=== PATIENT | female | born 1925 | race African-American/Black ===

== ENCOUNTER 2016-08-06 20:41 | Inpatient (IN) ==
[2016-08-06 23:03] LABS: Apearance,Urine CLOUDY (Clear); Bilirubin,Urine Negative (Negative); Blood, Urine Large mg/dL (Negative); Glucose,Urine (UA) >=500 mg/dL (Negative); Granular Casts,Urine 5 /LPF (0-1); Hyaline Casts,Urine 10 /LPF (0-3); Ketones,Urine Negative (Negative); Nitrite,Urine Negative (Negative); Protein,Urine 100 MG/DL; RBC,Urine 41 /HPF (0-4); Squamous Epithelial Cell,Urine Occasional /HPF (0-10); Urine Color Yellow (Yellow); Urine Specific Gravity 1.012 (1.001-1.035); Urine Urobilinogen < 2.0 EU/DL (0.2-1.0); WBC,Urine 27 /HPF (0-6)
[2016-08-06] MEDS ORDERED: SODIUM BICARBONATE 50 MEQ/50 ML SYRINGE IV ONE (23:04)
[2016-08-06] MEDS ORDERED: LACTULOSE 20 GM/30 ML UDCUP PO PRN (23:05)
[2016-08-06] MEDS ORDERED: ACETAMINOPHEN 325 MG TABLET PO PRN (23:05)
[2016-08-06] MEDS ORDERED: DOCUSATE SODIUM 100 MG CAPSULE PO PRN (23:05)
[2016-08-06] MEDS ORDERED: SODIUM CHLORIDE 0.9% 1,500 ML IV ONE (23:05)
[2016-08-06] MEDS ORDERED: ONDANSETRON 4 MG/2 ML VIAL IV PRN (23:05)
[2016-08-06 23:06] LABS: ABG Base Excess -6.8 MMOL/L (-2.5-2.5); ABG HCO3 22.8 MMOL/L (20-26); ABG Oxygen Saturation 97.3 % (95-100); ABG PCO2 65.8 MM HG (35-48); ABG PO2 117.5 MM HG (80-95); ABG TCO2 24.8 MMOL/L (23-27); Allen Test Positive; Pt O2 Delivery Device Ventilator
[2016-08-06 23:10] LABS: ABG PH 7.157 (7.35-7.45)
[2016-08-06] MEDS ORDERED: NOREPINEPHRINE 4 MG/4 ML VIAL IV ONE (23:16)
[2016-08-06] MEDS ORDERED: SODIUM CHLORIDE 0.9% 1,000 ML IV SCH (23:30)
[2016-08-07] MEDS: NOREPINEPHRINE 8 MG in SODIUM CHLORIDE 0.9% 242 ML IV SCH
[2016-08-07 00:09] LABS: Calcium 7.2 MG/DL (8.5-10.1); Magnesium 1.9 MG/DL (1.8-2.4); Osmolality,Calculated 310.1 MOS/KG (273-304); Potassium 3.4 MMOL/L (3.5-5.1); Risk Ratio 3.51; VLDL CHOLESTEROL 12.8 MG/DL
[2016-08-07] MEDS ORDERED: PROPOFOL 1,000 MG/100 ML BOTTLE IV ONE (00:10)
[2016-08-07] MEDS ORDERED: FUROSEMIDE 100 MG/10 ML VIAL ONE (00:10)
[2016-08-07 00:12] LABS: Troponin I Only 0.26 NG/ML (0.00-0.045)
[2016-08-07 00:15] LABS: INR 1.2; PT Patient Result 12.7 SECS; Partial Thromboplastin Time 35.3 SECS (0-40)
[2016-08-07] MEDS: PROPOFOL 1,000 MG/100 ML BOTTLE IV SCH ×2 (00:20→19:46)
[2016-08-07 00:25] LABS: Alanine Aminotransferase 49 U/L (13-56); Albumin 2.1 G/DL (3.4-5.0); Alkaline Phosphatase 86 U/L (45-117); Aspartate Amino Transferase 83 U/L (0-37); Bilirubin,Total < 0.39 MG/DL (0.2-1.0); Blood Urea Nitrogen 13 MG/DL (7-18); Calcium 7.2 MG/DL (8.5-10.1); Glucose 354 MG/DL (74-106); Osmolality,Calculated 309.1 MOS/KG (273-304); Potassium 3.4 MMOL/L (3.5-5.1); Sodium 149 MMOL/L (136-145); Total Protein 5.1 G/DL (6.4-8.3)
[2016-08-07 00:31] LABS: Lactic Acid 3.9 MMOL/L (0.4-2.0)
[2016-08-07 00:37] LABS: Basophils % 0.1 % (0.0-0.8); Eosinophils % 0.1 % (0.00-10.9); Hematocrit 34.2 VOL% (35.7-47.0); Immature Granulocytes % 0.9 %; Immature Granulocytes Absolute 0.15 #; Lymphocytes # 1.1 10*3/uL (1.4-4.0); Lymphocytes % 6.6 % (21.3-54.2); Mean Corpuscular HGB Conc 32.2 GM/DL (32-36); Mean Corpuscular Hemoglobin 29 PG (27-34); Mean Corpuscular Volume 90.2 FL (87-102); Mean Platelet Volume 11.2 FL (9.6-12.0); Monocytes # 1.2 10*3/uL (0.11-0.8); Monocytes % 7.8 % (1.7-12.7); Neutrophils # 13.4 10*3/uL (1.4-7.4); Neutrophils % 84.5 % (38.7-73.9); Platelet Count 165 T/CUMM (130-400); Red Blood Count 3.79 MC/CUMM (3.8-5.5); Red Cell Distribution Width 14.3 % (9.3-17.3); White Blood Count 15.8 T/CUMM (4-12)
[2016-08-07] MEDS ORDERED: POTASSIUM CHLORIDE RIDER 10 MEQ in PREMIX 1 EACH IV PRN (00:41)
[2016-08-07] MEDS ORDERED: SODIUM BICARBONATE 50 MEQ/50 ML SYRINGE IV ONE (00:41)
[2016-08-07] MEDS ORDERED: SODIUM CHLORIDE 0.9% 1,000 ML IV ONE (00:41)
[2016-08-07] MEDS ORDERED: POTASSIUM CHLORIDE RIDER 20 MEQ in PREMIX 1 EACH IV PRN (00:41)
[2016-08-07] MEDS ORDERED: FUROSEMIDE 40 MG/4 ML VIAL IV ONE (00:41)
[2016-08-07] MEDS ORDERED: GLUCAGON 1 MG VIAL IM PRN (00:53)
[2016-08-07] MEDS ORDERED: DEXTROSE 50% 25 GM/50 ML VIAL IV PRN (00:53)
[2016-08-07] MEDS ORDERED: AMIODARONE INJ 450 MG in DEXTROSE 5% 241 ML IV SCH ×3 (01:00→05:00)
[2016-08-07] MEDS ORDERED: POTASSIUM CHLORIDE RIDER 100 ML IV ONE ×2 (01:13)
[2016-08-07 01:29] LABS: Band Neutrophils 2 % (0-10); Lymphocytes 6 % (20-55); Segmented Neutrophils 89 % (50-85); Total Cells Counted 100
--- NOTE | 2016-08-07 01:29 | Hospitalist History & Physical ---
Assessment and Plan - Time spent with patient Time spent with patient: Greater than 30 minutes (1) Pulmonary edema Status: Acute Assessment and plan: lasix IV 80 mg with good response/ urine output Current Visit: Yes Qualifiers: Chronicity: acute Qualified Code(s): J81.0 - Acute pulmonary edema (2) NSTEMI (non-ST elevated myocardial infarction) Status: Acute Assessment and plan: serial cardiac enzymes add lovenox echo in am consult cardiology repeat ekg shows a LBBB reduce amiodarone start asa Current Visit: Yes (3) Acute respiratory failure Status: Acute Assessment and plan: intubated. repeat ABG Consult pulmonary Current Visit: Yes Qualifiers: Respiratory failure complication: hypoxia and hypercapnia Qualified Code(s) : J96.01 - Acute respiratory failure with hypoxia; J96.02 - Acute respiratory failure with hypercapnia (4) Respiratory acidosis Status: Acute Assessment and plan: PH 7.1 with an elevated PCO2. Increase respiratory rate and increase PEEP repeat ABG in a few hours One amp of bicarb given on arrival Current Visit: Yes (5) Hypokalemia Status: Acute Assessment and plan: replacement ordered per protocol. Current Visit: Yes (6) SVT (supraventricular tachycardia) Status: Acute Assessment and plan: improved with amiodarone Current Visit: Yes (7) Hyperglycemia Status: Acute Assessment and plan: no hx of diabetes. repeat accu check. sliding scale insulin coverage. A1c is 6.0. Current Visit: Yes (8) Elevated lactic acid level Status: Acute Assessment and plan: no evidence of sepsis or infection no fever sudden onset of symptoms I suspect a primary cardiac event. rocephin and zithromax given CXR looks like pulmonary edema and has frothy sputum in ET tube. Current Visit: Yes History of Present Illness Chief complaint: SOB/ respiratory failure, SVT History of present illness: Ms. Daugherty is a 89 year old female that [facility] with shortness of breath that was acute in onset prior to arrival to the emergency department. She was found to be in SVT with a heart rate of 170. She was treated with amiodarone IV which improved her heart rate but did not improve her shortness of breath. Due to significant respiratory distress and impending respiratory failure, the patient was intubated in the emergency department. Further evaluation showed a left bundle branch block on EKG. The patient's family reports no significant medical history other than emphysema. She has not been on any medications for over 2 years. She only takes an aspirin daily. They deny any history of previous heart disease. The patient was transferred to [facility] for intensive care unit level care due to her acute respiratory failure and unstable cardiac rhythm. She arrived intubated and sedated having received paralytics in route. She was on an amiodarone drip and dopamine. Her heart rate was in the 120s-130s and she was hypotensive. She was given a fluid bolus upon arrival with normal saline. She was also receiving azithromycin IV. Upon arrival to the ICU, I saw and evaluated the patient. I felt that she needed a central line and a triple-lumen catheter was placed in the right internal jugular vein. A chest x- ray was done to confirm positioning. Chest x-ray reviewed by me appears to show bilateral pulmonary edema. The patient's family reports no significant fever, cough, sick contacts, or prodrome to this hospitalization. The daughter reports the patient became short of breath approximately 20-30 minutes prior to arrival to the emergency department. She reports diaphoresis and left-sided chest pain. The patient's initial cardiac enzymes were mildly elevated. Repeat cardiac enzymes here were also mildly elevated. A repeat EKG is being performed now. Allergies Allergy/AdvReac Type Severity Reaction Status Date / Time No Known Allergies Allergy Verified 08/06/16 22:43 Medical,Surgical,& Family Hx - Medical History Neurology: History of: Dementia (Untreated for the last 2 years) Respiratory: History of: COPD Other: History of: Miscellaneous Medical Problems (The patient has not been seeing a physician or taking any medications.) - Surgical History Additional Surgical History: Family denies prior surgeries. Patient unable to provide history due to intubation. - Family History Family History: Reports;: Family Hypertension - Social History Smoking Status: Former smoker Have you smoked in the last 12 months: No Frequency of Alcohol Use: None Type of Drug Use: None Marital Status: Lives With:: Children ROS unobtainable: due to endotracheal tube Exam - Constitutional Vitals: Period Temp Pulse Resp BP Sys/Cruz Pulse Ox Last 24 Hr 10-19 Exam: Constitutional System: Mild distress. No tremulousness. Intubated and sedated. Thin and frail-appearing. Head: Normocephalic, atraumatic. Ears, Nose and Throat System: No pain or tenderness. No epistaxis or discharge. Endotracheal tube in place Eyes System: Pupils equal, round, and reactive. Extraocular muscles intact. Neck: Supple, without adenopathy, No jugular venous distention. No thyromegaly, neck mass, or prior surgery apparent. Respiratory System: Chest with rales and rhonchi bilaterally to auscultation. Cardiovascular System: Heart with tachycardia. No murmur. GI System: Abdomen soft, nontender. Normo active bowel sounds present. Musculoskeletal System: limbs with no pedal edema. Full distal pulses. Neurological System: Intubated and sedated. Arouses and moves spontaneously Psychiatric System: Unable to assess secondary to mental status and intubation. Results - Labs CBC & BMP: 08/06/16 23:53 08/06/16 23:59 Lab Results: I have reviewed the past 24 hour labs - Diagnostic Findings Procedure: Chest x-ray: image reviewed by me, report reviewed by me Sepsis Sepsis documentation within 6 hours of presentation: CVP measurement (CVP of 19) - Physical Exam Respiratory exam: rales Capillary Refill: Less Than 3 Seconds Peripheral pulses: Radial (L): 5+, Radial (R): 5+, Dorsalis Pedis (L) PM: 5+, Dorsalis Pedis (R) PM: 5+, Posterior Tibialis (L): 5+, Posterior Tibialis (R): 5 + Cardiovascular exam: tachycardia Skin exam: normal color
[2016-08-07 01:30] LABS: Ovalocytes 1+; Platelet Estimate Normal
[2016-08-07] MEDS: POTASSIUM CHLORIDE RIDER 20 MEQ in PREMIX 1 EACH IV SCH ×2 (01:30→02:57)
[2016-08-07] MEDS: INSULIN REGULAR 100 UNIT/ML SUBCUT SCH ×6 (02:03→21:13)
[2016-08-07] MEDS ORDERED: ASPIRIN CHEW 81 MG TABLET PO ONE (02:44)
[2016-08-07 03:11] LABS: ABG Base Excess -2.6 MMOL/L (-2.5-2.5); ABG HCO3 22.3 MMOL/L (20-26); ABG PCO2 40.8 MM HG (35-48); ABG PH 7.355 (7.35-7.45); ABG TCO2 20.1 MMOL/L (23-27); Allen Test Positive; Pt O2 Delivery Device Ventilator
[2016-08-07] MEDS: MORPHINE 2 MG/1 ML SYRINGE IV PRN (04:30)
[2016-08-07] MEDS: ENOXAPARIN 60 MG/0.6 ML SYRINGE SUBCUT SCH ×2 (04:30→15:46)
[2016-08-07 04:48] LABS: Basophils % 0.1 % (0.0-0.8); Hematocrit 38.8 VOL% (35.7-47.0); Hemoglobin 12.4 GM/DL (12.0-16.0); Immature Granulocytes % 0.7 %; Lymphocytes % 6.3 % (21.3-54.2); Mean Corpuscular Hemoglobin 29 PG (27-34); Mean Corpuscular Volume 90.2 FL (87-102); Mean Platelet Volume 10.8 FL (9.6-12.0); Monocytes # 0.8 10*3/uL (0.11-0.8); Neutrophils # 13.2 10*3/uL (1.4-7.4); Neutrophils % 87.9 % (38.7-73.9); Platelet Count 184 T/CUMM (130-400); Red Cell Distribution Width 14.4 % (9.3-17.3)
[2016-08-07 05:21] LABS: Band Neutrophils 1 % (0-10); Lymphocytes 3 % (20-55); Platelet Estimate Normal; Segmented Neutrophils 94 % (50-85); Total Cells Counted 100
[2016-08-07 05:22] LABS: Hypochromasia 1+; Ovalocytes Slight
[2016-08-07 05:35] LABS: CKMB % 6.6 %
[2016-08-07 05:36] LABS: Calcium 7.9 MG/DL (8.5-10.1); Osmolality,Calculated 297.8 MOS/KG (273-304); Potassium 5.2 MMOL/L (3.5-5.1)
[2016-08-07 05:37] LABS: Troponin I Only 0.36 NG/ML (0.00-0.045)
--- NOTE | 2016-08-07 06:02 | XRay Report ---
Exam: XR chest 1V portable Date: 08/06/2016 10:48 PM Indication: Endotracheal tube placement Comparison: None Technical: AP portable Findings: A right IJ catheter has present. Endotracheal tube is located at the level of michelle. Patchy interstitial infiltrates are present bilaterally. Low volume effusion present on the right. Mild prominence the cardiac silhouette. Arthritic change present over the shoulders bilaterally at the glenohumeral joint as well as AC joint. External cardiac leads are present. ASVD is present. No pneumothorax. Impression: 1. Endotracheal tube at the level of the michelle slight retraction of the tube may be beneficial 2. Right IJ catheter in the superior vena cava 3. Patchy bilateral pneumonic infiltrates with low volume effusion 4. 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 Cardiomegaly PROCEDURE INTERPRETED AT [facility] DEPARTMENT OF RADIOLOGY Final Report Signed by: Dr. Ayush Shannon
--- NOTE | 2016-08-07 06:37 | EKG Report ---
Stationary ECG Study [facility] Test Date: 08/07/2016 3:07:36 AM Pat Name: MORRIS NEELY Department: Room: 106 Gender: F Center Mgr: MAKENZIE : 1925 Requested by: Nidia Collins Order Number: [id number] Reading MD: MONA MURRAY Intervals [place] Rate: 73 P: 35 [place]: 141 QRS: 55 QRSD: 154 T: 191 QT: 498 QTc: 524 Interpretive Statements SINUS RHYTHM INTRAVENTRICULAR CONDUCTION DELAY Electronically Signed On 08-07-16 12:08:32 CDT by MONA MURRAY [id number]
--- NOTE | 2016-08-07 07:30 | Pulmonology Consult Note ---
Assessment and Plan (1) Pulmonary edema Status: Acute Assessment and plan: The patient certainly looks like she has some pulmonary edema although she may have some underlying fibrotic changes. Her oxygenation is doing better on the ventilator. Current Visit: Yes Qualifiers: Chronicity: acute Qualified Code(s): J81.0 - Acute pulmonary edema (2) NSTEMI (non-ST elevated myocardial infarction) Status: Acute Assessment and plan: She certainly presented like an acute [place] and has positive enzymes. She appears to be stable at present. Current Visit: Yes (3) Acute respiratory failure Status: Acute Assessment and plan: The patient presented with respiratory failure and is now stable on the ventilator. Her oxygenation has improved. We will continue ventilatory support Current Visit: Yes Qualifiers: Respiratory failure complication: hypoxia and hypercapnia Qualified Code(s) : J96.01 - Acute respiratory failure with hypoxia; J96.02 - Acute respiratory failure with hypercapnia (4) Hyperglycemia Status: Acute Assessment and plan: Her glucose is around 300 now. Current Visit: Yes History of Present Illness Chief complaint: Ventilator management History of present illness: Ms. Daugherty is a 89 year old black female that apparently has been fairly active and healthy presented to the local emergency room with respiratory distress. She had SVT with a heart rate of 170 and was in distress. She ultimately required intubation. She is now in ICU on the ventilator. According to her family she might have some emphysema. She takes an aspirin and that is yet. Apparently the shortness of breath was fairly sudden. She had not been having a lot of symptoms for this. She is reasonably stable at present on the ventilator. Home Medications Medication Instructions Recorded Confirmed Type Aspirin [Ecotrin] 81 mg PO DAILY 08/07/16 08/07/16 History Allergies Allergy/AdvReac Type Severity Reaction Status Date / Time No Known Allergies Allergy Verified 08/06/16 22:43 ROS unobtainable: due to endotracheal tube (She is unable to give me any history.) Exam (Pulmonay) H&P - Constitutional Vitals: Period Temp Pulse Resp BP Sys/Cruz Pulse Ox Last 24 Hr 96.3 F-96.8 F 70-130 10-19 73-129/54-76 95-100 General appearance: no acute distress (Patient is stable on the ventilator.), under weight - Head Head exam: Present: normal inspection, normocephalic - Eye Eye exam: Present: EOMI. Absent: scleral icterus Pupils: Present: TACHO - ENT ENT exam: Present: other (ET tube is in good position) - Neck Neck exam: Absent: lymphadenopathy - Respiratory Respiratory exam: Present: rhonchi, other (She has fairly good breath sounds bilaterally now.). Absent: accessory muscle use - Cardiovascular Cardiovascular exam: Present: regular rate and rhythm. Absent: gallop, systolic murmur - GI/Abdominal GI/Abdominal exam: Present: normal bowel sounds, soft. Absent: organomegaly, tenderness - Extremities Exam Extremities exam: Present: other (Her extremities are rather thin.). Absent: calf tenderness, edema - Neurological Exam Neurological exam: Present: other (She is sedated on the ventilator at present.) - Psychiatric Psychiatric exam: Absent: anxious - Skin Skin exam: Present: warm, dry Medical,Surgical,& Family Hx - Medical History Neurology: History of: Dementia (Untreated for the last 2 years) Respiratory: History of: COPD Other: History of: Miscellaneous Medical Problems (The patient has not been seeing a physician or taking any medications.) - Family History Family History: Reports;: Family Hypertension - Social History Smoking Status: Former smoker Frequency of Alcohol Use: None Type of Drug Use: None Results - Labs CBC & BMP: 08/07/16 04:30 08/07/16 04:30 Labs: PO2 is 410 with a PCO2 of 40 and a pH of 7.35. She had a PCO2 of 65 when she was first intubated. - Diagnostic Findings Procedure: Chest x-ray: image reviewed by me, report reviewed by me (Chest x- ray shows bilateral interstitial changes. Some of this could be chronic.)
--- NOTE | 2016-08-07 07:45 | EKG Report ---
Stationary ECG Study [facility] Test Date: 08/06/2016 10:29:41 PM Pat Name: MORRIS NEELY Department: Room: 106 Gender: F Manager Stylist: MAKENZIE : 1925 Requested by: Nidia Collins Order Number: [id number] Reading MD: MONA MURRAY Intervals [place] Rate: 138 P: 999 [place]: 0 QRS: 21 QRSD: 171 T: 120 QT: 351 QTc: 432 Interpretive Statements ATRIAL FLUTTER/TACHYCARDIA WITH RAPID VENTRICULAR RESPONSE LEFT BUNDLE BRANCH BLOCK Electronically Signed On 08-07-16 11:59:41 CDT by MONA MURRAY [id number]
--- NOTE | 2016-08-07 08:13 | Cardiology Consult Note ---
<Helen Roman E - Last Filed: 08/07/16 07:47> Assessment and Plan - Time spent with patient Time spent with patient: Greater than 30 minutes (1) CAP (community acquired pneumonia) Status: Acute Assessment and plan: SEE PLAN OF CARE LISTED BELOW Current Visit: Yes (2) Elevated troponin Status: Acute Assessment and plan: SEE PLAN OF CARE LISTED BELOW Current Visit: Yes (3) LBBB (left bundle branch block) Status: Acute Assessment and plan: SEE PLAN OF CARE LISTED BELOW Current Visit: Yes (4) Advanced age Status: Chronic Assessment and plan: SEE PLAN OF CARE LISTED BELOW Current Visit: Yes (5) Tachyarrhythmia Status: Acute Assessment and plan: SEE PLAN OF CARE LISTED BELOW Current Visit: Yes (6) Pulmonary edema Status: Acute Assessment and plan: SEE PLAN OF CARE LISTED BELOW Current Visit: Yes Qualifiers: Chronicity: acute Qualified Code(s): J81.0 - Acute pulmonary edema (7) Acute respiratory failure Status: Acute Assessment and plan: SEE PLAN OF CARE LISTED BELOW Current Visit: Yes Qualifiers: Respiratory failure complication: hypoxia and hypercapnia Qualified Code(s) : J96.01 - Acute respiratory failure with hypoxia; J96.02 - Acute respiratory failure with hypercapnia (8) Respiratory acidosis Status: Acute Assessment and plan: SEE PLAN OF CARE LISTED BELOW Current Visit: Yes (9) Elevated lactic acid level Status: Acute Assessment and plan: SEE PLAN OF CARE LISTED BELOW Current Visit: Yes History of Present Illness - Data of Consult Patient: new to practice Consult date: 08/07/16 Requesting Physician: Nidia Collins - Consult Narrative Reason for consult: arrythmia, CHF, elevated troponin History of present illness: 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 ANDRADE Patient is being seen in ICU. She is intubated, sedated and no family is present. The majority of the information below is taken from medical records and staff. Ms. Daugherty, 89BF, with risk factors significant for: advanced age, sedentary lifestyle. No prior history of cardiac disease per family. (Patient is normally active and takes only ASA daily.) Patient was transferred in from [facility] this morning with acute shortness of breath, respiratory distress and impending respiratory failure. Patient was intubated in the emergency department. She was found to be in SVT with a heart rate around 170 bpm by report, treated with IV Amiodarone and heart rate improved. EKG revealed left bundle branch block. Family member reports patient had complaints of acute shortness of breath approximately 20-30 minutes prior to arrival in the emergency department, diaphoresis and left-sided chest pain. Troponins are minimally elevated at 0.16, 0.26, 0.360. Chest x-ray reveals parapneumonic effusions concerning for CAP, acute pulmonary edema, elevated troponin. ProBNP >7000. Currently on IV Amiodarone revealing a normal sinus rhythm, LBBB. Requiring low -dose pressor. She has received Aspirin, Lovenox. Blood pressure will not allow for beta-faustino, STANLEY or nitrate. Will add lipid-lowering agent. She has received IV Lasix and seems to be responding well. Cardiac exam reveals a murmur, suspicious for mitral regurgitation. Echocardiogram has been ordered. We will initiate IV Levaquin, send BC x 2, UA, continue diuretics and follow her cardiac biomarkers, EKG. At some point, patient may benefit from heart catheterization as I understand she is usually very active. Wants her comorbidities stabilize, this may be considered. I will further discuss with Dr. Andrade and await additional recommendations. ASSESSMENT/PLAN: 1. ACUTE RESPIRATORY FAILURE -now intubated, following commands appropriately. Most likely related to CAP, pulmonary edema. Continue with ventilatory support, diuresis, IV antibiotics and pulmonary toilet. 2. CAP - initiating IV Levaquin. WBCs 15K. Parapneumonic effusions per chest x-ray. Will continue to follow closely 3. ACUTE CHF - etiology undetermined and further information will unveil to the hospital stay. Echo has been ordered. NYHA Class IV. 4. CARDIAC MURMUR - suspicious for mitral regurgitation. Echocardiogram pending 5. ELEVATED TROPONIN - continue to follow CIEs. Troponin only minimally elevated and may be related to her reported tachycardia arrhythmias, metabolic stress. Aspirin, Lovenox on board. LBBB present, chronicity unknown. 6. LBBB - undetermined chronicity. 7. TACHY ARRYTHMIA -is reported her heart rate was around 170 bpm. I do see an EKG with sinus tachycardia 130s. She has been maintained on IV Amiodarone protocol and will continue to monitor for arrhythmias. Transition to oral Amiodarone soon. CC: Kelly Avila MD - Home Medications and Allergies Home Medications: Home Medications Medication Instructions Recorded Confirmed Type Aspirin [Ecotrin] 81 mg PO DAILY 08/07/16 08/07/16 History Allergies/Adverse Reactions: Allergies Allergy/AdvReac Type Severity Reaction Status Date / Time No Known Allergies Allergy Verified 08/06/16 22:43 ROS unobtainable: due to endotracheal tube Medical,Surgical,& Family Hx - Medical History Cardio: No history of: CAD, Hypertension, VA, Valvular Heart Disease, Cardiovascular Problems Neurology: History of: Dementia (Untreated for the last 2 years) Respiratory: History of: COPD Other: History of: Miscellaneous Medical Problems (The patient has not been seeing a physician or taking any medications.) - Family History Family History: Reports;: Family Hypertension - Social History Smoking Status: Former smoker Frequency of Alcohol Use: None Type of Drug Use: None Physical Examination Vital Signs Temp Pulse Resp BP Pulse Ox 96.3 F L 130 H 11 L 89/58 95 08/06/16 22:20 08/06/16 22:20 08/06/16 22:20 08/06/16 22:20 08/06/16 22:20 General: [Thin, female. ] [ ] [Appears comfortable. Intubated , sedated] HEENT: [Bilateral arcus, normocephalic, atraumatic. Mucous membranes moist. No jaundice noted. Conjunctiva moist and clear, sclerae anicteric] Neck: No obvious JVD/HJR, no thyromegaly or lymphadenopathy noted. No carotid bruit appreciated. No tracheal deviation. Breasts: No masses, nodules noted. No nipple inversion or drainage. Cardiac: [Regular rhythm, controlled rate. II-III/HSM heard best at 5ICS left. Lungs: [Coarse throughout. Symmetrical chest wall movements noted. Abdomen: Soft, bowel sounds normoactive. Nontender and nondistended. No abdominal bruit or thrill noted. No masses noted. Musculoskeletal: No fluid collection. Decreased range of motion is noted. Extremities: No clubbing, cyanosis noted. [ No edema noted.] Upper extremity pulses 2+. Lower extremity pulses 1+. Capillary refill less than 3 seconds. Skin: No unusual lesions or rashes. No skin breakdown appreciated. Neuro: Awakes when sedation held. Follows commands appropriately. No essential tremor is appreciated. Result/EKG - Labs CBC & BMP: 08/07/16 04:30 08/07/16 04:30 Lab Results: I have reviewed the past 24 hour labs Labs: Laboratory Results - last 24 hr 08/06/16 08/06/16 08/06/16 22:50 22:50 23:25 WBC RBC Hgb Hct MCV MCH MCHC RDW Plt Count MPV Neut % (Auto) Lymph % (Auto) [place] % (Auto) Eos % (Auto) Baso % (Auto) Neut # (Auto) Lymph # (Auto) [place] # (Auto) Eos # (Auto) Baso # (Auto) Total Counted Immature Gran % Nucleated RBC % Immature Gran # Segmented Neutrophils Band Neutrophils Lymphocytes Monocytes Nucleated RBCs # Platelet Estimate Hypochromasia Ovalocytes Morphology Comment INR PT Patient/Control Mix Circ Anticoag PTT ABG pH 7.157 L* ABG pCO2 65.8 H ABG pO2 117.5 H ABG HCO3 22.8 ABG Total CO2 24.8 ABG O2 Saturation 97.3 ABG Base Excess -6.8 L FiO2 100.00 Sodium 149 H Potassium 3.4 L Chloride 111 H Carbon Dioxide 26 Anion Gap 15.4 H BUN 14 Creatinine 0.90 GFR Calculation 59 BUN/Creatinine Ratio 15.00 Glucose 356 H POC Glucose Hemoglobin A1c Calculated Osmolality 310.1 H Lactic Acid Calcium 7.2 L Magnesium 1.9 Total Bilirubin AST ALT Alkaline Phosphatase Total Creatine Kinase CK-MB (CK-2) CK and CKMB Interp Troponin I B-Natriuretic Peptide Total Protein Albumin Globulin Albumin/Globulin Ratio Triglycerides 64 Cholesterol 151 LDL Cholesterol 96.0 VLDL Cholesterol 12.8 HDL Cholesterol 43 Heart Disease Risk Ratio 3.51 Urine Color Yellow Urine Appearance Cloudy Urine pH 5.0 Ur Specific [place] 1.012 Urine Protein 100 Urine Glucose (UA) >=500 Urine Ketones Negative Urine Blood Large Urine Nitrate Negative Urine Bilirubin Negative Urine Urobilinogen < 2.0 H Urine Leukocytes Large H Urine RBC 41 Urine WBC 27 Urine WBC Clumps Moderate Ur Squamous Epith Cells Occasional Hyaline Casts 10 Granular Casts 5 Ur Culture Indicated? Results to follow 08/06/16 08/06/16 08/06/16 23:25 23:53 23:53 WBC 15.8 H RBC 3.79 L Hgb 11.0 L Hct 34.2 L MCV 90.2 MCH 29 MCHC 32.2 RDW 14.3 Plt Count 165 MPV 11.2 Neut % (Auto) 84.5 H Lymph % (Auto) 6.6 L [place] % (Auto) 7.8 Eos % (Auto) 0.1 Baso % (Auto) 0.1 Neut # (Auto) 13.4 H Lymph # (Auto) 1.1 L [place] # (Auto) 1.2 H Eos # (Auto) 0.0 Baso # (Auto) 0.0 Total Counted 100 Immature Gran % 0.9 Nucleated RBC % 0.0 Immature Gran # 0.15 Segmented Neutrophils 89 H Band Neutrophils 2 Lymphocytes 6 L Monocytes 3 Nucleated RBCs # 0.00 Platelet Estimate Normal Hypochromasia Ovalocytes 1+ Morphology Comment INR PT Patient/Control Mix Circ Anticoag PTT ABG pH ABG pCO2 ABG pO2 ABG HCO3 ABG Total CO2 ABG O2 Saturation ABG Base Excess FiO2 Sodium Potassium Chloride Carbon Dioxide Anion Gap BUN Creatinine GFR Calculation BUN/Creatinine Ratio Glucose POC Glucose Hemoglobin A1c 6.0 Calculated Osmolality Lactic Acid Calcium Magnesium Total Bilirubin AST ALT Alkaline Phosphatase Total Creatine Kinase 260 H CK-MB (CK-2) 5.1 H CK and CKMB Interp 2.0 Troponin I 0.260 H B-Natriuretic Peptide Total Protein Albumin Globulin Albumin/Globulin Ratio Triglycerides Cholesterol LDL Cholesterol VLDL Cholesterol HDL Cholesterol Heart Disease Risk Ratio Urine Color Urine Appearance Urine pH Ur Specific [place] Urine Protein Urine Glucose (UA) Urine Ketones Urine Blood Urine Nitrate Urine Bilirubin Urine Urobilinogen Urine Leukocytes Urine RBC Urine WBC Urine WBC Clumps Ur Squamous Epith Cells Hyaline Casts Granular Casts Ur Culture Indicated? 08/06/16 08/06/16 08/06/16 23:53 23:59 23:59 WBC RBC Hgb Hct MCV MCH MCHC RDW Plt Count MPV Neut % (Auto) Lymph % (Auto) [place] % (Auto) Eos % (Auto) Baso % (Auto) Neut # (Auto) Lymph # (Auto) [place] # (Auto) Eos # (Auto) Baso # (Auto) Total Counted Immature Gran % Nucleated RBC % Immature Gran # Segmented Neutrophils Band Neutrophils Lymphocytes Monocytes Nucleated RBCs # Platelet Estimate Hypochromasia Ovalocytes Morphology Comment INR 1.2 PT Patient/Control Mix 12.7 Circ Anticoag PTT 35.3 ABG pH ABG pCO2 ABG pO2 ABG HCO3 ABG Total CO2 ABG O2 Saturation ABG Base Excess FiO2 Sodium 149 H Potassium 3.4 L Chloride 111 H Carbon Dioxide 25 Anion Gap 16.4 H BUN 13 Creatinine 1.00 GFR Calculation 52 BUN/Creatinine Ratio 13.00 Glucose 354 H POC Glucose Hemoglobin A1c Calculated Osmolality 309.1 H Lactic Acid 3.9 H Calcium 7.2 L Magnesium Total Bilirubin < 0.39 AST 83 H ALT 49 Alkaline Phosphatase 86 Total Creatine Kinase CK-MB (CK-2) CK and CKMB Interp Troponin I B-Natriuretic Peptide 926 H Total Protein 5.1 L Albumin 2.1 L Globulin 3.0 Albumin/Globulin Ratio 0.7 L Triglycerides Cholesterol LDL Cholesterol VLDL Cholesterol HDL Cholesterol Heart Disease Risk Ratio Urine Color Urine Appearance Urine pH Ur Specific [place] Urine Protein Urine Glucose (UA) Urine Ketones Urine Blood Urine Nitrate Urine Bilirubin Urine Urobilinogen Urine Leukocytes Urine RBC Urine WBC Urine WBC Clumps Ur Squamous Epith Cells Hyaline Casts Granular Casts Ur Culture Indicated? 08/07/16 08/07/16 08/07/16 01:58 02:44 04:30 WBC RBC Hgb Hct MCV MCH MCHC RDW Plt Count MPV Neut % (Auto) Lymph % (Auto) [place] % (Auto) Eos % (Auto) Baso % (Auto) Neut # (Auto) Lymph # (Auto) [place] # (Auto) Eos # (Auto) Baso # (Auto) Total Counted Immature Gran % Nucleated RBC % Immature Gran # Segmented Neutrophils Band Neutrophils Lymphocytes Monocytes Nucleated RBCs # Platelet Estimate Hypochromasia Ovalocytes Morphology Comment INR PT Patient/Control Mix Circ Anticoag PTT ABG pH 7.355 ABG pCO2 40.8 ABG pO2 410.0 H ABG HCO3 22.3 ABG Total CO2 20.1 L ABG O2 Saturation 100.0 ABG Base Excess -2.6 L FiO2 100.00 Sodium Potassium Chloride Carbon Dioxide Anion Gap BUN Creatinine GFR Calculation BUN/Creatinine Ratio Glucose POC Glucose 422 H Hemoglobin A1c Calculated Osmolality Lactic Acid 3.7 H Calcium Magnesium Total Bilirubin AST ALT Alkaline Phosphatase Total Creatine Kinase CK-MB (CK-2) CK and CKMB Interp Troponin I B-Natriuretic Peptide Total Protein Albumin Globulin Albumin/Globulin Ratio Triglycerides Cholesterol LDL Cholesterol VLDL Cholesterol HDL Cholesterol Heart Disease Risk Ratio Urine Color Urine Appearance Urine pH Ur Specific [place] Urine Protein Urine Glucose (UA) Urine Ketones Urine Blood Urine Nitrate Urine Bilirubin Urine Urobilinogen Urine Leukocytes Urine RBC Urine WBC Urine WBC Clumps Ur Squamous Epith Cells Hyaline Casts Granular Casts Ur Culture Indicated? 08/07/16 08/07/16 08/07/16 04:30 04:30 04:30 WBC 15.0 H RBC 4.30 Hgb 12.4 Hct 38.8 MCV 90.2 MCH 29 MCHC 32.0 RDW 14.4 Plt Count 184 MPV 10.8 Neut % (Auto) 87.9 H Lymph % (Auto) 6.3 L [place] % (Auto) 5.0 Eos % (Auto) 0.0 Baso % (Auto) 0.1 Neut # (Auto) 13.2 H Lymph # (Auto) 1.0 L [place] # (Auto) 0.8 Eos # (Auto) 0.0 Baso # (Auto) 0.0 Total Counted 100 Immature Gran % 0.7 Nucleated RBC % 0.0 Immature Gran # 0.10 Segmented Neutrophils 94 H Band Neutrophils 1 Lymphocytes 3 L Monocytes 2 Nucleated RBCs # 0.00 Platelet Estimate Normal Hypochromasia 1+ Ovalocytes Slight Morphology Comment INR PT Patient/Control Mix Circ Anticoag PTT ABG pH ABG pCO2 ABG pO2 ABG HCO3 ABG Total CO2 ABG O2 Saturation ABG Base Excess FiO2 Sodium 144 Potassium 5.2 H Chloride 109 H Carbon Dioxide 26 Anion Gap 14.2 BUN 16 Creatinine 1.00 GFR Calculation 52 BUN/Creatinine Ratio 16.00 Glucose 303 H POC Glucose Hemoglobin A1c Calculated Osmolality 297.8 Lactic Acid Calcium 7.9 L Magnesium Total Bilirubin AST ALT Alkaline Phosphatase Total Creatine Kinase 83 D CK-MB (CK-2) 5.5 H CK and CKMB Interp 6.6 Troponin I 0.360 H D B-Natriuretic Peptide Total Protein Albumin Globulin Albumin/Globulin Ratio Triglycerides Cholesterol LDL Cholesterol VLDL Cholesterol HDL Cholesterol Heart Disease Risk Ratio Urine Color Urine Appearance Urine pH Ur Specific [place] Urine Protein Urine Glucose (UA) Urine Ketones Urine Blood Urine Nitrate Urine Bilirubin Urine Urobilinogen Urine Leukocytes Urine RBC Urine WBC Urine WBC Clumps Ur Squamous Epith Cells Hyaline Casts Granular Casts Ur Culture Indicated? 08/07/16 06:50 WBC RBC Hgb Hct MCV MCH MCHC RDW Plt Count MPV Neut % (Auto) Lymph % (Auto) [place] % (Auto) Eos % (Auto) Baso % (Auto) Neut # (Auto) Lymph # (Auto) [place] # (Auto) Eos # (Auto) Baso # (Auto) Total Counted Immature Gran % Nucleated RBC % Immature Gran # Segmented Neutrophils Band Neutrophils Lymphocytes Monocytes Nucleated RBCs # Platelet Estimate Hypochromasia Ovalocytes Morphology Comment INR PT Patient/Control Mix Circ Anticoag PTT ABG pH ABG pCO2 ABG pO2 ABG HCO3 ABG Total CO2 ABG O2 Saturation ABG Base Excess FiO2 Sodium Potassium Chloride Carbon Dioxide Anion Gap BUN Creatinine GFR Calculation BUN/Creatinine Ratio Glucose POC Glucose 307 H Hemoglobin A1c Calculated Osmolality Lactic Acid Calcium Magnesium Total Bilirubin AST ALT Alkaline Phosphatase Total Creatine Kinase CK-MB (CK-2) CK and CKMB Interp Troponin I B-Natriuretic Peptide Total Protein Albumin Globulin Albumin/Globulin Ratio Triglycerides Cholesterol LDL Cholesterol VLDL Cholesterol HDL Cholesterol Heart Disease Risk Ratio Urine Color Urine Appearance Urine pH Ur Specific [place] Urine Protein Urine Glucose (UA) Urine Ketones Urine Blood Urine Nitrate Urine Bilirubin Urine Urobilinogen Urine Leukocytes Urine RBC Urine WBC Urine WBC Clumps Ur Squamous Epith Cells Hyaline Casts Granular Casts Ur Culture Indicated? - Diagnostic Findings Procedure: Chest x-ray: report reviewed by me - EKG EKG results: interpreted by wi EKG shows: tachycardia (LBBB), sinus rhythm <Thony Andraed - Last Filed: 08/07/16 16:05> History of Present Illness - Consult Narrative History of present illness: Cardiology addendum Patient examined chart reviewed and discussed with nurse Helen Roman Cardiomyopathy. Echo showed ejection fraction of 20% with moderate to severe MR. Severe TR PA pressure 70-75 and grade 2 diastolic dysfunction. Chronic left bundle branch block History of SVT Resolving lactic acidosis 3.9 admission lactate level White count 15.8 with left shift Hypotension currently on levo fed blood pressure 96/60 Trivial troponin bump due to CHF Chest x-ray shows cardiomegaly with CHF BNP level 926, cannot rule out superimposed pneumonia Plan CPAP trials IV Lasix Pressors as tolerated Cardiac evaluation when able Discussed with several family members CC: Kelly Avila MD Physical Examination Vital Signs Temp Pulse Resp BP Pulse Ox 96.3 F L 130 H 11 L 89/58 95 08/06/16 22:20 08/06/16 22:20 08/06/16 22:20 08/06/16 22:20 08/06/16 22:20 Result/EKG - Labs CBC & BMP: 08/07/16 04:30 08/07/16 Unknown Labs: Laboratory Results - last 24 hr 08/06/16 08/06/16 08/06/16 22:50 22:50 23:25 WBC RBC Hgb Hct MCV MCH MCHC RDW Plt Count MPV Neut % (Auto) Lymph % (Auto) [place] % (Auto) Eos % (Auto) Baso % (Auto) Neut # (Auto) Lymph # (Auto) [place] # (Auto) Eos # (Auto) Baso # (Auto) Total Counted Immature Gran % Nucleated RBC % Immature Gran # Segmented Neutrophils Band Neutrophils Lymphocytes Monocytes Nucleated RBCs # Platelet Estimate Hypochromasia Ovalocytes Morphology Comment INR PT Patient/Control Mix Circ Anticoag PTT ABG pH 7.157 L* ABG pCO2 65.8 H ABG pO2 117.5 H ABG HCO3 22.8 ABG Total CO2 24.8 ABG O2 Saturation 97.3 ABG Base Excess -6.8 L FiO2 100.00 Sodium 149 H Potassium 3.4 L Chloride 111 H Carbon Dioxide 26 Anion Gap 15.4 H BUN 14 Creatinine 0.90 GFR Calculation 59 BUN/Creatinine Ratio 15.00 Glucose 356 H POC Glucose Hemoglobin A1c Calculated Osmolality 310.1 H Lactic Acid Calcium 7.2 L Magnesium 1.9 Total Bilirubin AST ALT Alkaline Phosphatase Total Creatine Kinase CK-MB (CK-2) CK and CKMB Interp Troponin I B-Natriuretic Peptide Total Protein Albumin Globulin Albumin/Globulin Ratio Triglycerides 64 Cholesterol 151 LDL Cholesterol 96.0 VLDL Cholesterol 12.8 HDL Cholesterol 43 Heart Disease Risk Ratio 3.51 Urine Color Yellow Urine Appearance Cloudy Urine pH 5.0 Ur Specific [place] 1.012 Urine Protein 100 Urine Glucose (UA) >=500 Urine Ketones Negative Urine Blood Large Urine Nitrate Negative Urine Bilirubin Negative Urine Urobilinogen < 2.0 H Urine Leukocytes Large H Urine RBC 41 Urine WBC 27 Urine WBC Clumps Moderate Ur Squamous Epith Cells Occasional Hyaline Casts 10 Granular Casts 5 Ur Culture Indicated? Results to follow 08/06/16 08/06/16 08/06/16 23:25 23:53 23:53 WBC 15.8 H RBC 3.79 L Hgb 11.0 L Hct 34.2 L MCV 90.2 MCH 29 MCHC 32.2 RDW 14.3 Plt Count 165 MPV 11.2 Neut % (Auto) 84.5 H Lymph % (Auto) 6.6 L [place] % (Auto) 7.8 Eos % (Auto) 0.1 Baso % (Auto) 0.1 Neut # (Auto) 13.4 H Lymph # (Auto) 1.1 L [place] # (Auto) 1.2 H Eos # (Auto) 0.0 Baso # (Auto) 0.0 Total Counted 100 Immature Gran % 0.9 Nucleated RBC % 0.0 Immature Gran # 0.15 Segmented Neutrophils 89 H Band Neutrophils 2 Lymphocytes 6 L Monocytes 3 Nucleated RBCs # 0.00 Platelet Estimate Normal Hypochromasia Ovalocytes 1+ Morphology Comment INR PT Patient/Control Mix Circ Anticoag PTT ABG pH ABG pCO2 ABG pO2 ABG HCO3 ABG Total CO2 ABG O2 Saturation ABG Base Excess FiO2 Sodium Potassium Chloride Carbon Dioxide Anion Gap BUN Creatinine GFR Calculation BUN/Creatinine Ratio Glucose POC Glucose Hemoglobin A1c 6.0 Calculated Osmolality Lactic Acid Calcium Magnesium Total Bilirubin AST ALT Alkaline Phosphatase Total Creatine Kinase 260 H CK-MB (CK-2) 5.1 H CK and CKMB Interp 2.0 Troponin I 0.260 H B-Natriuretic Peptide Total Protein Albumin Globulin Albumin/Globulin Ratio Triglycerides Cholesterol LDL Cholesterol VLDL Cholesterol HDL Cholesterol Heart Disease Risk Ratio Urine Color Urine Appearance Urine pH Ur Specific [place] Urine Protein Urine Glucose (UA) Urine Ketones Urine Blood Urine Nitrate Urine Bilirubin Urine Urobilinogen Urine Leukocytes Urine RBC Urine WBC Urine WBC Clumps Ur Squamous Epith Cells Hyaline Casts Granular Casts Ur Culture Indicated? 08/06/16 08/06/16 08/06/16 23:53 23:59 23:59 WBC RBC Hgb Hct MCV MCH MCHC RDW Plt Count MPV Neut % (Auto) Lymph % (Auto) [place] % (Auto) Eos % (Auto) Baso % (Auto) Neut # (Auto) Lymph # (Auto) [place] # (Auto) Eos # (Auto) Baso # (Auto) Total Counted Immature Gran % Nucleated RBC % Immature Gran # Segmented Neutrophils Band Neutrophils Lymphocytes Monocytes Nucleated RBCs # Platelet Estimate Hypochromasia Ovalocytes Morphology Comment INR 1.2 PT Patient/Control Mix 12.7 Circ Anticoag PTT 35.3 ABG pH ABG pCO2 ABG pO2 ABG HCO3 ABG Total CO2 ABG O2 Saturation ABG Base Excess FiO2 Sodium 149 H Potassium 3.4 L Chloride 111 H Carbon Dioxide 25 Anion Gap 16.4 H BUN 13 Creatinine 1.00 GFR Calculation 52 BUN/Creatinine Ratio 13.00 Glucose 354 H POC Glucose Hemoglobin A1c Calculated Osmolality 309.1 H Lactic Acid 3.9 H Calcium 7.2 L Magnesium Total Bilirubin < 0.39 AST 83 H ALT 49 Alkaline Phosphatase 86 Total Creatine Kinase CK-MB (CK-2) CK and CKMB Interp Troponin I B-Natriuretic Peptide 926 H Total Protein 5.1 L Albumin 2.1 L Globulin 3.0 Albumin/Globulin Ratio 0.7 L Triglycerides Cholesterol LDL Cholesterol VLDL Cholesterol HDL Cholesterol Heart Disease Risk Ratio Urine Color Urine Appearance Urine pH Ur Specific [place] Urine Protein Urine Glucose (UA) Urine Ketones Urine Blood Urine Nitrate Urine Bilirubin Urine Urobilinogen Urine Leukocytes Urine RBC Urine WBC Urine WBC Clumps Ur Squamous Epith Cells Hyaline Casts Granular Casts Ur Culture Indicated? 08/07/16 08/07/16 08/07/16 01:58 02:44 04:30 WBC RBC Hgb Hct MCV MCH MCHC RDW Plt Count MPV Neut % (Auto) Lymph % (Auto) [place] % (Auto) Eos % (Auto) Baso % (Auto) Neut # (Auto) Lymph # (Auto) [place] # (Auto) Eos # (Auto) Baso # (Auto) Total Counted Immature Gran % Nucleated RBC % Immature Gran # Segmented Neutrophils Band Neutrophils Lymphocytes Monocytes Nucleated RBCs # Platelet Estimate Hypochromasia Ovalocytes Morphology Comment INR PT Patient/Control Mix Circ Anticoag PTT ABG pH 7.355 ABG pCO2 40.8 ABG pO2 410.0 H ABG HCO3 22.3 ABG Total CO2 20.1 L ABG O2 Saturation 100.0 ABG Base Excess -2.6 L FiO2 100.00 Sodium Potassium Chloride Carbon Dioxide Anion Gap BUN Creatinine GFR Calculation BUN/Creatinine Ratio Glucose POC Glucose 422 H Hemoglobin A1c Calculated Osmolality Lactic Acid 3.7 H Calcium Magnesium Total Bilirubin AST ALT Alkaline Phosphatase Total Creatine Kinase CK-MB (CK-2) CK and CKMB Interp Troponin I B-Natriuretic Peptide Total Protein Albumin Globulin Albumin/Globulin Ratio Triglycerides Cholesterol LDL Cholesterol VLDL Cholesterol HDL Cholesterol Heart Disease Risk Ratio Urine Color Urine Appearance Urine pH Ur Specific [place] Urine Protein Urine Glucose (UA) Urine Ketones Urine Blood Urine Nitrate Urine Bilirubin Urine Urobilinogen Urine Leukocytes Urine RBC Urine WBC Urine WBC Clumps Ur Squamous Epith Cells Hyaline Casts Granular Casts Ur Culture Indicated? 08/07/16 08/07/16 08/07/16 04:30 04:30 04:30 WBC 15.0 H RBC 4.30 Hgb 12.4 Hct 38.8 MCV 90.2 MCH 29 MCHC 32.0 RDW 14.4 Plt Count 184 MPV 10.8 Neut % (Auto) 87.9 H Lymph % (Auto) 6.3 L [place] % (Auto) 5.0 Eos % (Auto) 0.0 Baso % (Auto) 0.1 Neut # (Auto) 13.2 H Lymph # (Auto) 1.0 L [place] # (Auto) 0.8 Eos # (Auto) 0.0 Baso # (Auto) 0.0 Total Counted 100 Immature Gran % 0.7 Nucleated RBC % 0.0 Immature Gran # 0.10 Segmented Neutrophils 94 H Band Neutrophils 1 Lymphocytes 3 L Monocytes 2 Nucleated RBCs # 0.00 Platelet Estimate Normal Hypochromasia 1+ Ovalocytes Slight Morphology Comment INR PT Patient/Control Mix Circ Anticoag PTT ABG pH ABG pCO2 ABG pO2 ABG HCO3 ABG Total CO2 ABG O2 Saturation ABG Base Excess FiO2 Sodium 144 Potassium 5.2 H Chloride 109 H Carbon Dioxide 26 Anion Gap 14.2 BUN 16 Creatinine 1.00 GFR Calculation 52 BUN/Creatinine Ratio 16.00 Glucose 303 H POC Glucose Hemoglobin A1c Calculated Osmolality 297.8 Lactic Acid Calcium 7.9 L Magnesium Total Bilirubin AST ALT Alkaline Phosphatase Total Creatine Kinase 83 D CK-MB (CK-2) 5.5 H CK and CKMB Interp 6.6 Troponin I 0.360 H D B-Natriuretic Peptide Total Protein Albumin Globulin Albumin/Globulin Ratio Triglycerides Cholesterol LDL Cholesterol VLDL Cholesterol HDL Cholesterol Heart Disease Risk Ratio Urine Color Urine Appearance Urine pH Ur Specific [place] Urine Protein Urine Glucose (UA) Urine Ketones Urine Blood Urine Nitrate Urine Bilirubin Urine Urobilinogen Urine Leukocytes Urine RBC Urine WBC Urine WBC Clumps Ur Squamous Epith Cells Hyaline Casts Granular Casts Ur Culture Indicated? 08/07/16 08/07/16 08/07/16 06:50 09:15 09:38 WBC RBC Hgb Hct MCV MCH MCHC RDW Plt Count MPV Neut % (Auto) Lymph % (Auto) [place] % (Auto) Eos % (Auto) Baso % (Auto) Neut # (Auto) Lymph # (Auto) [place] # (Auto) Eos # (Auto) Baso # (Auto) Total Counted Immature Gran % Nucleated RBC % Immature Gran # Segmented Neutrophils Band Neutrophils Lymphocytes Monocytes Nucleated RBCs # Platelet Estimate Hypochromasia Ovalocytes Morphology Comment INR PT Patient/Control Mix Circ Anticoag PTT ABG pH ABG pCO2 ABG pO2 ABG HCO3 ABG Total CO2 ABG O2 Saturation ABG Base Excess FiO2 Sodium Potassium Chloride Carbon Dioxide Anion Gap BUN Creatinine GFR Calculation BUN/Creatinine Ratio Glucose POC Glucose 307 H 271 H Hemoglobin A1c Calculated Osmolality Lactic Acid Calcium Magnesium Total Bilirubin AST ALT Alkaline Phosphatase Total Creatine Kinase 84 CK-MB (CK-2) 4.8 H CK and CKMB Interp Troponin I 0.302 H B-Natriuretic Peptide Total Protein Albumin Globulin Albumin/Globulin Ratio Triglycerides Cholesterol LDL Cholesterol VLDL Cholesterol HDL Cholesterol Heart Disease Risk Ratio Urine Color Urine Appearance Urine pH Ur Specific [place] Urine Protein Urine Glucose (UA) Urine Ketones Urine Blood Urine Nitrate Urine Bilirubin Urine Urobilinogen Urine Leukocytes Urine RBC Urine WBC Urine WBC Clumps Ur Squamous Epith Cells Hyaline Casts Granular Casts Ur Culture Indicated? 08/07/16 08/07/16 14:04 Unknown WBC RBC Hgb Hct MCV MCH MCHC RDW Plt Count MPV Neut % (Auto) Lymph % (Auto) [place] % (Auto) Eos % (Auto) Baso % (Auto) Neut # (Auto) Lymph # (Auto) [place] # (Auto) Eos # (Auto) Baso # (Auto) Total Counted Immature Gran % Nucleated RBC % Immature Gran # Segmented Neutrophils Band Neutrophils Lymphocytes Monocytes Nucleated RBCs # Platelet Estimate Hypochromasia Ovalocytes Morphology Comment INR PT Patient/Control Mix Circ Anticoag PTT ABG pH ABG pCO2 ABG pO2 ABG HCO3 ABG Total CO2 ABG O2 Saturation ABG Base Excess FiO2 Sodium 142 Potassium 5.2 H Chloride 108 H Carbon Dioxide 27 Anion Gap 12.2 BUN 19 H Creatinine 1.20 H GFR Calculation 42 BUN/Creatinine Ratio 15.00 Glucose 148 H POC Glucose 147 H Hemoglobin A1c Calculated Osmolality 287.1 Lactic Acid Calcium 7.7 L Magnesium 1.9 Total Bilirubin AST ALT Alkaline Phosphatase Total Creatine Kinase CK-MB (CK-2) CK and CKMB Interp Troponin I B-Natriuretic Peptide Total Protein Albumin Globulin Albumin/Globulin Ratio Triglycerides Cholesterol LDL Cholesterol VLDL Cholesterol HDL Cholesterol Heart Disease Risk Ratio Urine Color Urine Appearance Urine pH Ur Specific [place] Urine Protein Urine Glucose (UA) Urine Ketones Urine Blood Urine Nitrate Urine Bilirubin Urine Urobilinogen Urine Leukocytes Urine RBC Urine WBC Urine WBC Clumps Ur Squamous Epith Cells Hyaline Casts Granular Casts Ur Culture Indicated?
--- NOTE | 2016-08-07 08:19 | EKG Report ---
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
[2016-08-07] MEDS: SODIUM CHLORIDE 0.9% IV SCH (08:28)
[2016-08-07] MEDS: AMIODARONE IV SCH (08:28)
[2016-08-07] MEDS ORDERED: LEVOFLOXACIN INJ 500 MG in PREMIX 1 EACH IV SCH (08:30)
[2016-08-07] MEDS: PANTOPRAZOLE 40 MG VIAL IV SCH (08:31)
[2016-08-07] MEDS: ASPIRIN 325 MG TABLET PO SCH (08:47)
[2016-08-07] MEDS ORDERED: FUROSEMIDE 40 MG/4 ML VIAL IV SCH ×2 (09:00→16:00)
[2016-08-07] MEDS ORDERED: PANTOPRAZOLE 40 MG TABLET PO SCH (09:00)
[2016-08-07] MEDS: SODIUM CHLORIDE 0.45% 1,000 ML IV SCH ×2 (09:39→10:20)
[2016-08-07 10:10] LABS: Troponin I Only 0.302 NG/ML (0.00-0.045)
--- NOTE | 2016-08-07 11:23 | ECHO Report ---
Sugey Daugherty Exam Date: 08/07/2016 09:34 Referring Physician: Technologist: maris Bowman ARDMS, RVT Age: 89 Ht (in): 66 Wt (lb): 109 Gender: F Exam Location: [facility] Echo Indications: Hyperglycemia, SVT, Hypokalemia, Respiratory acidosis, Sepsis, Pulmonary edema, NSTEMI, Acute resp failure BP: 94 / 58 HR: 83 Rhythm: Sinus Technical Quality: Good IMPRESSIONS EF 20 %, severe global [id number]. Grade II/IV diastolic dysfunction, moderately elevated filling pressures. The right ventricle is normal in size and function. The right atrium is mildly enlarged. Moderately increased left atrial size. Mildly thickened mitral valve. Moderate-severe mitral valve regurgitation. Aortic valve sclerosis. Trace aortic valve regurgitation. Severe tricuspid valve regurgitation. RHq17-19 mmHG. Mild pulmonary valve regurgitation. Normal pericardium without effusion. Normal ascending aorta dimension. MEASUREMENTS (Male / Female) Normal Values 2D ECHO LV Diastolic Diameter PLAX 5.4 cm 4.2 - 5.9 / 3.9 - 5.3 cm LV Systolic Diameter PLAX 5.1 cm LV Fractional Shortening PLAX 5.3 % IVS Diastolic Thickness 1.0 cm 0.6 - 1.0 / 0.6 - 0.9 cm LVPW Diastolic Thickness 1.0 cm 0.6 - 1.0 / 0.6 - 0.9 cm RV Internal Dim ED PLAX 2.9 cm Aortic Root Diameter 3.0 cm LA Systolic Diameter LX 3.7 cm 3.0 - 4.0 / 2.7 - 3.8 cm DOPPLER TR Peak Velocity 416.0 cm/s TR Peak Gradient 69.2 mmHg FINDINGS Left Ventricle EF 20 %, severe global [id number]. Grade II/IV diastolic dysfunction, moderately elevated filling pressures. Right Ventricle The right ventricle is normal in size and function. Right Atrium The right atrium is mildly enlarged. Left Atrium Moderately increased left atrial size. Mitral Valve Mildly thickened mitral valve. Moderate-severe mitral valve regurgitation. Aortic Valve Aortic valve sclerosis. Trace aortic valve regurgitation. Tricuspid Valve Morphologically normal tricuspid valve. Severe tricuspid valve regurgitation. ZBu01-79 mmHG. Pulmonic Valve Morphologically normal pulmonic valve. Mild pulmonary valve regurgitation. Pericardium Normal pericardium without effusion. Aorta Normal ascending aorta dimension. Adis Andrade (Electronically Signed) Final Date: 07 August 2016 11:22
[2016-08-07] MEDS: DESITIN 4OZ/NYSTATIN 15 GRAM MIXTURE PASTE TOP SCH ×2 (12:09→21:13)
[2016-08-07 13:03] LABS: Calcium 7.7 MG/DL (8.5-10.1); Magnesium 1.9 MG/DL (1.8-2.4); Osmolality,Calculated 287.1 MOS/KG (273-304); Potassium 5.2 MMOL/L (3.5-5.1)
[2016-08-07] MEDS ORDERED: SODIUM CHLORIDE 0.9% 500 ML IV ONE (14:06)
[2016-08-07] MEDS: FUROSEMIDE 40 MG/4 ML VIAL IV SCH (15:43)
[2016-08-07 18:25] LABS: Troponin I Only 0.249 NG/ML (0.00-0.045)
--- NOTE | 2016-08-07 19:05 | Event Note ---
Late entry Procedure note from last night- at time of admission. The patient was seen and examined. The site was marked. A timeout was taken. The patient's identity, procedure, consent and location were identified. Maximum barrier precautions were used with aseptic technique. The patient was prepped and draped in sterile fashion. Local anesthesia was given with 1% lidocaine plain. The right internal jugular vein was accessed and the guide wire placed without difficulty. After using the tissue dilator, the triple lumen catheter was placed over the wire and the wire removed intact. All ports were flushed with normal saline and functioned well. The central line was secured with the enclosed suture. A chest x-ray was ordered to confirm placement. The patient tolerated the procedure well. The nurse will place the appropriate dressing according to the hospital protocols.
[2016-08-07] MEDS: ATORVASTATIN 20 MG TABLET PO SCH (21:13)
[2016-08-08] MEDS: MORPHINE 2 MG/1 ML SYRINGE IV PRN ×4 (00:13→21:19)
[2016-08-08] MEDS: SODIUM CHLORIDE 0.9% IV SCH ×3 (00:41→18:05)
[2016-08-08] MEDS: AMIODARONE IV SCH ×3 (00:41→18:05)
[2016-08-08 01:09] LABS: Troponin I Only 0.211 NG/ML (0.00-0.045)
[2016-08-08] MEDS: INSULIN REGULAR 100 UNIT/ML SUBCUT SCH ×6 (01:09→21:19)
[2016-08-08] MEDS: NOREPINEPHRINE 8 MG in SODIUM CHLORIDE 0.9% 242 ML IV SCH ×2 (02:02→11:31)
[2016-08-08] MEDS: PROPOFOL 1,000 MG/100 ML BOTTLE IV SCH (02:03)
[2016-08-08] MEDS: ENOXAPARIN 60 MG/0.6 ML SYRINGE SUBCUT SCH (03:36)
[2016-08-08 03:37] LABS: Basophils % 0.1 % (0.0-0.8); Eosinophils % 0.2 % (0.00-10.9); Hematocrit 34.3 VOL% (35.7-47.0); Hemoglobin 11.2 GM/DL (12.0-16.0); Immature Granulocytes % 0.2 %; Immature Granulocytes Absolute 0.02 #; Lymphocytes # 3.5 10*3/uL (1.4-4.0); Lymphocytes % 27.9 % (21.3-54.2); Mean Corpuscular HGB Conc 32.7 GM/DL (32-36); Mean Corpuscular Hemoglobin 29 PG (27-34); Mean Corpuscular Volume 89.6 FL (87-102); Mean Platelet Volume 10.6 FL (9.6-12.0); Monocytes # 0.9 10*3/uL (0.11-0.8); Monocytes % 6.8 % (1.7-12.7); Neutrophils # 8.1 10*3/uL (1.4-7.4); Neutrophils % 64.8 % (38.7-73.9); Platelet Count 151 T/CUMM (130-400); Red Blood Count 3.83 MC/CUMM (3.8-5.5); Red Cell Distribution Width 14.7 % (9.3-17.3); White Blood Count 12.5 T/CUMM (4-12)
[2016-08-08 04:03] LABS: ABG Base Excess 1.3 MMOL/L (-2.5-2.5); ABG HCO3 25.6 MMOL/L (20-26); ABG PCO2 50.1 MM HG (35-48); ABG TCO2 24.8 MMOL/L (23-27)
[2016-08-08 04:39] LABS: Calcium 7.5 MG/DL (8.5-10.1); Magnesium 1.9 MG/DL (1.8-2.4); Osmolality,Calculated 287.3 MOS/KG (273-304); Potassium 4.6 MMOL/L (3.5-5.1)
--- NOTE | 2016-08-08 06:25 | Cardiology Progress Note ---
Cardiology - PN: Subj Interval history: Cardiology note 89-year-old woman admitted with congestive heart failure and SVT Echo shows ejection fraction of 20% with severe global hypokinesis with moderate to severe MR and severe TR. PA pressure is 70-75 with grade 2 diastolic dysfunction. Telemetry shows sinus rhythm in the 70s on amiodarone. Blood pressure 106/53 on levo fed O2 sat 100 on 40% FiO2 and +5 PEEP Patient is alert Regular rhythm with wispy systolic murmur to the axilla Decreased breath sounds with bibasilar crackles Abdomen soft benign No leg edema Lab data today white count 12.5 hemoglobin 11.2 hematocrit 34.3 Sodium 141 potassium 4.6 chloride 106 CO2 30 BUN 25 creatinine 1.10 Glucose 154 magnesium 1.9 BNP 1442 Impression First onset congestive heart failure with hypotension and SVT and resolving lactic acidosis Ejection fraction 20% with moderate to severe MR and severe TR PA pressure 70-75 Chronic left bundle branch block Plan Change Lovenox to 40 mg subcu once daily Continue IV amiodarone Wean Levophed as tolerated 40 mg Lasix IV twice daily Labs in a.m. I had a long talk with her daughter early yesterday Exam (Progress Note) - Constitutional Vitals: Period Temp Pulse Resp BP Sys/Cruz Pulse Ox Last 24 Hr 97.2 F-99.1 F 75-90 12-30 85-115/46-74 100-100 Result/EKG - Labs CBC & BMP: 08/08/16 03:28 08/08/16 03:28 Labs: Laboratory Results - last 24 hr 08/07/16 08/07/16 08/07/16 01:58 06:50 09:15 WBC RBC Hgb Hct MCV MCH MCHC RDW Plt Count MPV Neut % (Auto) Lymph % (Auto) [place] % (Auto) Eos % (Auto) Baso % (Auto) Neut # (Auto) Lymph # (Auto) [place] # (Auto) Eos # (Auto) Baso # (Auto) Immature Gran % Nucleated RBC % Immature Gran # Nucleated RBCs # ABG pH ABG pCO2 ABG pO2 ABG HCO3 ABG Total CO2 ABG O2 Saturation ABG Base Excess Sodium Potassium Chloride Carbon Dioxide Anion Gap BUN Creatinine GFR Calculation BUN/Creatinine Ratio Glucose POC Glucose 422 H 307 H Calculated Osmolality Calcium Magnesium Total Creatine Kinase 84 CK-MB (CK-2) 4.8 H Troponin I 0.302 H B-Natriuretic Peptide 08/07/16 08/07/16 08/07/16 09:38 14:04 16:41 WBC RBC Hgb Hct MCV MCH MCHC RDW Plt Count MPV Neut % (Auto) Lymph % (Auto) [place] % (Auto) Eos % (Auto) Baso % (Auto) Neut # (Auto) Lymph # (Auto) [place] # (Auto) Eos # (Auto) Baso # (Auto) Immature Gran % Nucleated RBC % Immature Gran # Nucleated RBCs # ABG pH ABG pCO2 ABG pO2 ABG HCO3 ABG Total CO2 ABG O2 Saturation ABG Base Excess Sodium Potassium Chloride Carbon Dioxide Anion Gap BUN Creatinine GFR Calculation BUN/Creatinine Ratio Glucose POC Glucose 271 H 147 H Calculated Osmolality Calcium Magnesium Total Creatine Kinase 114 D CK-MB (CK-2) 3.7 H Troponin I 0.249 H B-Natriuretic Peptide 08/07/16 08/07/16 08/07/16 17:25 19:50 Unknown WBC RBC Hgb Hct MCV MCH MCHC RDW Plt Count MPV Neut % (Auto) Lymph % (Auto) [place] % (Auto) Eos % (Auto) Baso % (Auto) Neut # (Auto) Lymph # (Auto) [place] # (Auto) Eos # (Auto) Baso # (Auto) Immature Gran % Nucleated RBC % Immature Gran # Nucleated RBCs # ABG pH ABG pCO2 ABG pO2 ABG HCO3 ABG Total CO2 ABG O2 Saturation ABG Base Excess Sodium 142 Potassium 5.2 H Chloride 108 H Carbon Dioxide 27 Anion Gap 12.2 BUN 19 H Creatinine 1.20 H GFR Calculation 42 BUN/Creatinine Ratio 15.00 Glucose 148 H POC Glucose 114 H 122 H Calculated Osmolality 287.1 Calcium 7.7 L Magnesium 1.9 Total Creatine Kinase CK-MB (CK-2) Troponin I B-Natriuretic Peptide 08/08/16 08/08/16 08/08/16 00:23 01:09 03:28 WBC 12.5 H RBC 3.83 Hgb 11.2 L Hct 34.3 L MCV 89.6 MCH 29 MCHC 32.7 RDW 14.7 Plt Count 151 MPV 10.6 Neut % (Auto) 64.8 Lymph % (Auto) 27.9 [place] % (Auto) 6.8 Eos % (Auto) 0.2 Baso % (Auto) 0.1 Neut # (Auto) 8.1 H Lymph # (Auto) 3.5 [place] # (Auto) 0.9 H Eos # (Auto) 0.0 Baso # (Auto) 0.0 Immature Gran % 0.2 Nucleated RBC % 0.0 Immature Gran # 0.02 Nucleated RBCs # 0.00 ABG pH ABG pCO2 ABG pO2 ABG HCO3 ABG Total CO2 ABG O2 Saturation ABG Base Excess Sodium Potassium Chloride Carbon Dioxide Anion Gap BUN Creatinine GFR Calculation BUN/Creatinine Ratio Glucose POC Glucose 172 H Calculated Osmolality Calcium Magnesium Total Creatine Kinase 129 CK-MB (CK-2) 2.4 Troponin I 0.211 H B-Natriuretic Peptide 08/08/16 08/08/16 08/08/16 03:28 03:28 03:45 WBC RBC Hgb Hct MCV MCH MCHC RDW Plt Count MPV Neut % (Auto) Lymph % (Auto) [place] % (Auto) Eos % (Auto) Baso % (Auto) Neut # (Auto) Lymph # (Auto) [place] # (Auto) Eos # (Auto) Baso # (Auto) Immature Gran % Nucleated RBC % Immature Gran # Nucleated RBCs # ABG pH 7.350 ABG pCO2 50.1 H ABG pO2 133.0 H ABG HCO3 25.6 ABG Total CO2 24.8 ABG O2 Saturation 99.0 ABG Base Excess 1.3 Sodium 141 Potassium 4.6 Chloride 106 Carbon Dioxide 30 Anion Gap 9.6 BUN 25 H Creatinine 1.10 H GFR Calculation 46 BUN/Creatinine Ratio 22.00 H Glucose 154 H POC Glucose Calculated Osmolality 287.3 Calcium 7.5 L Magnesium 1.9 Total Creatine Kinase CK-MB (CK-2) Troponin I B-Natriuretic Peptide 1440 H
[2016-08-08] MEDS ORDERED: ENOXAPARIN 40 MG/0.4 ML SYRINGE SUBCUT SCH (06:30)
--- NOTE | 2016-08-08 07:48 | EKG Report ---
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
--- NOTE | 2016-08-08 08:17 | XRay Report ---
History: Patient on ventilator Date: 08/08/2016 Study: Chest x-ray AP portable Comparison exam: August 06, 2016 The endotracheal tube, right IJ central line, and nasogastric tube remain in satisfactory position. The cardiomediastinal silhouette is unchanged. There is some continued scattered hazy infiltrate/edema throughout both lungs, though this appearance has improved. There is no new or worsening infiltrate. There is no increasing pleural effusion. Osseous structures are unchanged. Impression: Continued scattered mild bilateral pulmonary infiltrate/edema, though this has moderately improved since the previous study PROCEDURE INTERPRETED AT [facility] DEPARTMENT OF RADIOLOGY Final Report Signed by: Dr. Cassidy Ventura
[2016-08-08] MEDS: ASPIRIN 325 MG TABLET PO SCH (08:21)
[2016-08-08] MEDS: FUROSEMIDE 40 MG/4 ML VIAL IV SCH ×2 (08:25→15:18)
[2016-08-08] MEDS: PANTOPRAZOLE 40 MG VIAL IV SCH (08:29)
[2016-08-08] MEDS: MULTIVITAMIN LIQUID (CENTRUM) 60 ML BOTTLE PO SCH (08:32)
--- NOTE | 2016-08-08 08:50 | Pulmonology Progress Note ---
Pulmonary - PN: Subj Interval history: This is a 89-year-old female. She is on mechanical ventilation. Her history is of being fairly healthy with some element of emphysema. Prior to this admission she was taken no medicines. She had a sudden event where she became very short of breath. He was thought that she might have a myocardial infarction. I have discussed the case with Dr. Jensen. He notes the patient has an ejection fraction of 20% and severe mitral regurgitation with secondary elevation of pulmonary arteries pressure at 70. Patient's blood pressure is low and she requires Geronimo-Synephrine she is on CPAP 2 hours at the time. This includes weaning protocol and physical therapy protocol chest x-ray shows some bibasilar interstitial scarring and may be an early infiltrate versus old scarring in the right upper lung. Microbiology. No positive cultures ABGs. PH is 7.35, PCO2 is 50, PO2 is 133 and bicarb is 25.6. Lab White count is dropped to 12,500 with 65 segs H&H 11.2/34.3 with platelets of 151,000 electrolytes are normal creatinine is 1.1 with a BUN of 25. Natruretic peptide is elevated 1440. Troponin is 0.211. Physical exam. Vital signs. See below Heart. Lateral PMI and a grade 1/2 over 6 high-pitched systolic murmur which is heard over the apex. Chest. Very mild large airway congestion. Abdomen. Nondistended. Rare bowel sounds Lower extremities nothing to suggest deep venous thrombophlebitis. Neurologic. Arousable. Moves all 4 extremities. The remainder the physical exam is noncontributory. Plan. 1. Weaning protocol 2. Physical therapy protocol 3. As per cardiology. 4. Daily chest x-ray ABGs and Exam (Progress Note) - Constitutional Vitals: Period Temp Pulse Resp BP Sys/Cruz Pulse Ox Last 24 Hr 97.7 F-99.1 F 72-90 12-24 85-116/46-69 100-100 Results - Labs CBC & BMP: 08/08/16 03:28 08/08/16 03:28
[2016-08-08] MEDS: LORazepam 2 MG/1 ML VIAL IV PRN ×2 (09:40→18:00)
[2016-08-08] MEDS: DESITIN 4OZ/NYSTATIN 15 GRAM MIXTURE PASTE TOP SCH ×2 (09:41→21:20)
--- NOTE | 2016-08-08 11:26 | Hospitalist Progress Note ---
Assessment and Plan (1) Acute respiratory failure Status: Acute Assessment and plan: Now that she has been here a day and we have results of the echo, the best explanation for her resp failure is pulmonary edema from CHF complicated by MR that she had no symptoms of until just before she decompensated. She has an EF of 20%. She has diuresed and with ventilation her hypoxia resolved and her CXR looks improved. Her UOP is better and her creatinine has come down to 1.1- her baseline is unknown but may be lower than that given her age and size. Her troponins have not risen much and she does not need urgent cath at this point. Dr Andrade is leaning toward medical management at this point. She does not have pneumonia at this time. I have discussed her sedation strategy with her nurse- she will turn the diprivan off gradually this morning and after that will use morphine and ativan as needed for sedation in hopes she will get off the levophed today. Dr Andrade plans to change her amio to oral tomorrow. Continue tube feeds. Current Visit: Yes Qualifiers: Respiratory failure complication: hypoxia and hypercapnia Qualified Code(s) : J96.01 - Acute respiratory failure with hypoxia; J96.02 - Acute respiratory failure with hypercapnia (2) Pulmonary edema Status: Acute Current Visit: Yes Qualifiers: Chronicity: acute Qualified Code(s): J81.0 - Acute pulmonary edema (3) NSTEMI (non-ST elevated myocardial infarction) Status: Acute Current Visit: Yes (4) SVT (supraventricular tachycardia) Status: Acute Current Visit: Yes (5) Hyperglycemia Status: Acute Current Visit: Yes (6) Elevated lactic acid level Status: Acute Current Visit: Yes (7) Advanced age Status: Chronic Current Visit: Yes Hospitalist: Subjective Interval history: Mrs Daugherty is doing well on the vent. She did CPAP for 2 hours yesterday. After IVF and lazix yesterday her UOP improved and her IVF was stopped afte ra liter was given. She is tolerating tube feeds. She remains on levophed and hopefully will come off once the diprivan is stopped this morning. Exam - Constitutional Vitals: Period Temp Pulse Resp BP Sys/Cruz Pulse Ox Last 24 Hr 97.7 F-99.1 F 72-94 12-24 85-126/46-69 100-100 General appearance: no acute distress, under weight - Head Head exam: Present: normocephalic, atraumatic - Eye Eye exam: Present: EOMI. Absent: scleral icterus - Respiratory Respiratory exam: Present: rales (few a bases bilaterally) - Cardiovascular Cardiovascular exam: Present: regular rate and rhythm - GI/Abdominal GI/Abdominal exam: Present: normal bowel sounds, soft. Absent: tenderness - Extremities Exam Extremities exam: Absent: edema - Neurological Exam Neurological exam: Present: CN II-XII intact, motor sensory deficit (seen ot move all 4 by nurses but sedated at my exam.) - Skin Skin exam: Present: warm, dry Results - Labs CBC & BMP: 08/08/16 03:28 08/08/16 03:28 Lab Results: I have reviewed the past 24 hour labs
[2016-08-08] MEDS: ATORVASTATIN 20 MG TABLET PO SCH (21:20)
[2016-08-09] MEDS: PROPOFOL 1,000 MG/100 ML BOTTLE IV SCH (00:21)
[2016-08-09] MEDS: NOREPINEPHRINE 8 MG in SODIUM CHLORIDE 0.9% 242 ML IV SCH ×2 (01:02→09:03)
[2016-08-09] MEDS: INSULIN REGULAR 100 UNIT/ML SUBCUT SCH ×6 (01:02→21:25)
[2016-08-09] MEDS: MORPHINE 2 MG/1 ML SYRINGE IV PRN ×2 (03:06→14:35)
[2016-08-09 03:21] LABS: Basophils % 0.1 % (0.0-0.8); Eosinophils # 0.1 10*3/uL (0.0-0.87); Eosinophils % 0.6 % (0.00-10.9); Hematocrit 31.8 VOL% (35.7-47.0); Hemoglobin 10.4 GM/DL (12.0-16.0); Immature Granulocytes % 0.3 %; Immature Granulocytes Absolute 0.03 #; Lymphocytes # 2.5 10*3/uL (1.4-4.0); Lymphocytes % 23.7 % (21.3-54.2); Mean Corpuscular HGB Conc 32.7 GM/DL (32-36); Mean Corpuscular Hemoglobin 29 PG (27-34); Mean Corpuscular Volume 89.1 FL (87-102); Monocytes # 0.7 10*3/uL (0.11-0.8); Monocytes % 6.7 % (1.7-12.7); Neutrophils # 7.2 10*3/uL (1.4-7.4); Neutrophils % 68.6 % (38.7-73.9); Platelet Count 152 T/CUMM (130-400); Red Blood Count 3.57 MC/CUMM (3.8-5.5); Red Cell Distribution Width 14.4 % (9.3-17.3); White Blood Count 10.5 T/CUMM (4-12)
[2016-08-09 03:50] LABS: Calcium 8.4 MG/DL (8.5-10.1); Magnesium 1.9 MG/DL (1.8-2.4); Osmolality,Calculated 290.8 MOS/KG (273-304)
[2016-08-09 03:50] LABS: ABG Base Excess 9.1 MMOL/L (-2.5-2.5); ABG HCO3 32.9 MMOL/L (20-26); ABG PCO2 55.1 MM HG (35-48); ABG PH 7.416 (7.35-7.45); ABG TCO2 32.2 MMOL/L (23-27); Allen Test Positive; Pt O2 Delivery Device Ventilator
[2016-08-09] MEDS: ENOXAPARIN 40 MG/0.4 ML SYRINGE SUBCUT SCH (05:41)
[2016-08-09] MEDS: LORazepam 2 MG/1 ML VIAL IV PRN ×2 (05:53→09:05)
[2016-08-09] MEDS: SODIUM CHLORIDE 0.9% IV SCH (06:21)
[2016-08-09] MEDS: AMIODARONE IV SCH (06:21)
--- NOTE | 2016-08-09 07:12 | Cardiology Progress Note ---
Cardiology - PN: Subj Interval history: Cardiology note 89-year-old woman admitted with congestive heart failure and SVT. Telemetry shows sinus rhythm in the 70-80 range Blood pressure 102/46 on levo fed O2 sat 100 on 40% FiO2 and +5 PEEP Regular rhythm with wispy systolic murmur to axilla Decreased breath sounds few crackles in the bases Abdomen soft benign No leg edema Lab data today Hemoglobin 10.4 hematocrit 31.8 white count 10.5 Sodium 144 potassium 4.0 chloride 101 CO2 36 BUN 27 creatinine 1.0 glucose 90 magnesium 1.9 ABG showed pH 7.41 PCO2 of 55 p.o. 140 Impression First onset congestive heart failure with hypotension and SVT Lactic acidosis resolved Chronic left bundle branch block Ejection fraction 20% with moderate to severe MR and severe TR, PA pressure 70- 75 Plan DC IV amiodarone, change to 20 mg twice daily orally Wean Levophed as tolerated 40 mg IV Lasix twice daily BMP in a.m. Exam (Progress Note) - Constitutional Vitals: Period Temp Pulse Resp BP Sys/Cruz Pulse Ox Last 24 Hr 97.9 F-98.9 F 67-94 12-26 85-126/40-67 98-100 Result/EKG - Labs CBC & BMP: 08/09/16 03:06 08/09/16 03:06 Labs: Laboratory Results - last 24 hr 08/08/16 08/08/16 08/08/16 10:00 13:59 17:42 WBC RBC Hgb Hct MCV MCH MCHC RDW Plt Count MPV Neut % (Auto) Lymph % (Auto) [place] % (Auto) Eos % (Auto) Baso % (Auto) Neut # (Auto) Lymph # (Auto) [place] # (Auto) Eos # (Auto) Baso # (Auto) Immature Gran % Nucleated RBC % Immature Gran # Nucleated RBCs # ABG pH ABG pCO2 ABG pO2 ABG HCO3 ABG Total CO2 ABG O2 Saturation ABG Base Excess FiO2 Sodium Potassium Chloride Carbon Dioxide Anion Gap BUN Creatinine GFR Calculation BUN/Creatinine Ratio Glucose POC Glucose 185 H 162 H 167 H Calculated Osmolality Calcium Magnesium 08/08/16 08/09/16 08/09/16 21:05 00:59 03:06 WBC 10.5 RBC 3.57 L Hgb 10.4 L Hct 31.8 L MCV 89.1 MCH 29 MCHC 32.7 RDW 14.4 Plt Count 152 MPV 11.0 Neut % (Auto) 68.6 Lymph % (Auto) 23.7 [place] % (Auto) 6.7 Eos % (Auto) 0.6 Baso % (Auto) 0.1 Neut # (Auto) 7.2 Lymph # (Auto) 2.5 [place] # (Auto) 0.7 Eos # (Auto) 0.1 Baso # (Auto) 0.0 Immature Gran % 0.3 Nucleated RBC % 0.0 Immature Gran # 0.03 Nucleated RBCs # 0.00 ABG pH ABG pCO2 ABG pO2 ABG HCO3 ABG Total CO2 ABG O2 Saturation ABG Base Excess FiO2 Sodium Potassium Chloride Carbon Dioxide Anion Gap BUN Creatinine GFR Calculation BUN/Creatinine Ratio Glucose POC Glucose 212 H 144 H Calculated Osmolality Calcium Magnesium 08/09/16 08/09/16 08/09/16 03:06 03:40 05:39 WBC RBC Hgb Hct MCV MCH MCHC RDW Plt Count MPV Neut % (Auto) Lymph % (Auto) [place] % (Auto) Eos % (Auto) Baso % (Auto) Neut # (Auto) Lymph # (Auto) [place] # (Auto) Eos # (Auto) Baso # (Auto) Immature Gran % Nucleated RBC % Immature Gran # Nucleated RBCs # ABG pH 7.416 ABG pCO2 55.1 H ABG pO2 140.0 H ABG HCO3 32.9 H ABG Total CO2 32.2 H ABG O2 Saturation 99.0 ABG Base Excess 9.1 H FiO2 40.00 Sodium 144 Potassium 4.0 Chloride 101 Carbon Dioxide 36 H Anion Gap 11.0 BUN 27 H Creatinine 1.00 GFR Calculation 52 BUN/Creatinine Ratio 27.00 H Glucose 90 POC Glucose 148 H Calculated Osmolality 290.8 Calcium 8.4 L Magnesium 1.9
[2016-08-09] MEDS: FUROSEMIDE 40 MG/4 ML VIAL IV SCH ×2 (07:50→15:51)
[2016-08-09] MEDS: ASPIRIN 325 MG TABLET PO SCH (08:12)
--- NOTE | 2016-08-09 08:32 | Hospitalist Progress Note ---
Hospitalist: Subjective Interval history: Overnight, nursing states that UOP decreased. UOP was about 300cc/hr during the day on yesterday. Notes reviewed. Exam - Constitutional Vitals: Period Temp Pulse Resp BP Sys/Cruz Pulse Ox Last 24 Hr 98.3 F-98.9 F 67-94 12-26 85-126/40-64 98-100 General appearance: no acute distress (intubated, on AC: Fio2: 40%, PEEP: 5, frequency: 12; does not follow commands; off continous sedation) - Head Head exam: Present: normal inspection, normocephalic - Eye Pupils: Present: TACHO (NGT in place) - Respiratory Respiratory exam: Present: decreased breath sounds (mild coarse breath sounds; good air movement) - Cardiovascular Cardiovascular exam: Present: regular rate and rhythm, systolic murmur - GI/Abdominal GI/Abdominal exam: Present: normal bowel sounds, soft - Extremities Exam Extremities exam: Absent: edema Results - Labs CBC & BMP: 08/09/16 03:06 08/09/16 03:06 - Impressions 1. New onset CHF with EF: 20%: diuresis; monitor UOP; being followed by cardiology; appreciate help 2. Severe MR and TR 3. SVT: now in NSR; will be transitioning to oral amiodarone; appreciate help by cardiology 4. Elevated troponin levels: now downtrending 5. Acute respiratory failure s/p intubation with MV: vent management per pulmonary 6. Hypotension: on levophed 7. Elevated lactate: resolved 8. Hyperglycemia: sugars better 9. Nutrition: on TFs
[2016-08-09] MEDS: PANTOPRAZOLE 40 MG VIAL IV SCH (08:36)
[2016-08-09] MEDS: DESITIN 4OZ/NYSTATIN 15 GRAM MIXTURE PASTE TOP SCH ×2 (08:52→21:26)
[2016-08-09] MEDS: MULTIVITAMIN LIQUID (CENTRUM) 60 ML BOTTLE PO SCH (08:52)
[2016-08-09] MEDS: AMIODARONE 200 MG TABLET PO SCH ×2 (08:56→21:26)
--- NOTE | 2016-08-09 09:20 | XRay Report ---
History: Patient on ventilator Date: 08/09/2016 Study: Chest x-ray AP portable Comparison exam: 08/08/2016 The supporting tubes are unchanged. The cardiac silhouette and mediastinum are stable. There is some hazy pulmonary infiltrate/edema in the lower lung zones, left greater than right. There is slightly improved aeration in the right mid to upper lung zone compared to the previous study. There is no new or worsening infiltrate. There is no increasing pleural effusion. Osseous structures are unchanged. Impression: Mildly improved aeration in the right mid to upper lung compared to the previous study. Otherwise unchanged PROCEDURE INTERPRETED AT [facility] DEPARTMENT OF RADIOLOGY Final Report Signed by: Dr. Cassidy Ventura
--- NOTE | 2016-08-09 12:04 | Pulmonology Progress Note ---
Pulmonary - PN: Subj Interval history: This is a 89-year-old female. She is on mechanical ventilation. Her history is of being fairly healthy with some element of emphysema. Prior to this admission she was taken no medicines. She had a sudden event where she became very short of breath. He was thought that she might have a myocardial infarction. I have discussed the case with Dr. Jensen. He notes the patient has an ejection fraction of 20% and severe mitral regurgitation with secondary elevation of pulmonary arteries pressure at 70. Patient's blood pressure is low and she requires Geronimo-Synephrine she is on CPAP 2 hours at the time. This includes weaning protocol and physical therapy protocol chest x-ray shows some bibasilar interstitial scarring and may be an early infiltrate versus old scarring in the right upper lung. Microbiology. No positive cultures ABGs. PH is 7.35, PCO2 is 50, PO2 is 133 and bicarb is 25.6. Lab White count is dropped to 12,500 with 65 segs H&H 11.2/34.3 with platelets of 151,000 electrolytes are normal creatinine is 1.1 with a BUN of 25. Natruretic peptide is elevated 1440. Troponin is 0.211. 08/09/2016. Patient's chest x-ray looks remarkably better. Heart is top normal in size pulmonary arteries are slightly prominent there is calcification of the aortic knob lung olmos show good resolution of congestive heart failure. There is either some residual interstitial edema or faint infiltrate trait noted over the left lower lung lateral basilar segment. Microbiology shows no positive cultures. Echocardiogram shows an ejection fraction of 20% with severe global hypokinesis. There is grade 2/4 diastolic dysfunction with moderately elevated filling pressures. There is moderate to severe mitral regurgitation with resultant pulmonary artery pressures elevated at 70 75 mmHg. There is mild enlargement of the left atrium. The right ventricle is has normal size and function. There is markedly increased size of the left atrium. ABGs on mechanical ventilation FiO2 40% shows a pH of 7.416. PCO2 of 55.1. PO2 of 140 and a bicarb of 32.9. Electrolytes are normal. Creatinine is 1.0 BUN is 23 H&H is 10.4/31.8 white count is 10,500 with 68.6 segs 23.7 lymphocytes. Overall this patient is making good progress. Will advance to weaning protocol as rapidly as the patient tolerates it. Physical exam. Vital signs. See below Heart. Lateral PMI and a grade 1/2 over 6 high-pitched systolic murmur which is heard over the apex. Chest. Very mild large airway congestion. Abdomen. Nondistended. Rare bowel sounds Lower extremities nothing to suggest deep venous thrombophlebitis. Neurologic. Arousable alert. Hard of hearing moves all 4 extremities. The remainder the physical exam is noncontributory. Plan. 08/08/2016 1. Weaning protocol 2. Physical therapy protocol 3. As per cardiology. 4. Daily chest x-ray ABGs and 08/09/2016. 1. Dr. Stone and Dr. Devries will meat pickler this case tomorrow. 2. Continue ventilator weaning protocol along with physical therapy protocol 3. Daily chest x-ray and ABGs. I am letting the patient's PCO2 run a little bit high in order to stimulate her. Exam (Progress Note) - Constitutional Vitals: Period Temp Pulse Resp BP Sys/Cruz Pulse Ox Last 24 Hr 97.8 F-98.9 F 67-91 12-26 85-114/40-64 98-100 Results - Labs CBC & BMP: 08/09/16 03:06 08/09/16 03:06
[2016-08-09] MEDS ORDERED: PNEUMOCOCCAL VACCINE (13 VALENT) 0.5 ML SYRINGE IM ONE (18:39)
[2016-08-09] MEDS: ATORVASTATIN 20 MG TABLET PO SCH (21:25)
[2016-08-10] MEDS: INSULIN REGULAR 100 UNIT/ML SUBCUT SCH ×5 (00:15→18:08)
[2016-08-10] MEDS: PROPOFOL 1,000 MG/100 ML BOTTLE IV SCH (00:16)
[2016-08-10] MEDS: NOREPINEPHRINE 8 MG in SODIUM CHLORIDE 0.9% 242 ML IV SCH (00:17)
[2016-08-10] MEDS: MORPHINE 2 MG/1 ML SYRINGE IV PRN ×4 (01:40→20:34)
[2016-08-10 04:21] LABS: Pt O2 Delivery Device Ventilator
[2016-08-10 04:25] LABS: ABG Base Excess 12.9 MMOL/L (-2.5-2.5); ABG HCO3 36.8 MMOL/L (20-26); ABG Oxygen Saturation 99.6 % (95-100); ABG PCO2 47.5 MM HG (35-48); ABG PH 7.509 (7.35-7.45); ABG TCO2 33.9 MMOL/L (23-27)
[2016-08-10 04:35] LABS: Basophils % 0.1 % (0.0-0.8); Eosinophils # 0.1 10*3/uL (0.0-0.87); Hematocrit 31.2 VOL% (35.7-47.0); Hemoglobin 10.3 GM/DL (12.0-16.0); Immature Granulocytes % 0.4 %; Immature Granulocytes Absolute 0.03 #; Lymphocytes # 1.1 10*3/uL (1.4-4.0); Lymphocytes % 13.5 % (21.3-54.2); Mean Corpuscular Hemoglobin 29 PG (27-34); Mean Corpuscular Volume 89.1 FL (87-102); Mean Platelet Volume 10.6 FL (9.6-12.0); Monocytes # 0.6 10*3/uL (0.11-0.8); Monocytes % 6.7 % (1.7-12.7); Neutrophils # 6.4 10*3/uL (1.4-7.4); Neutrophils % 78.3 % (38.7-73.9); Platelet Count 142 T/CUMM (130-400); Red Cell Distribution Width 14.6 % (9.3-17.3); White Blood Count 8.2 T/CUMM (4-12)
[2016-08-10 05:00] LABS: Calcium 8.7 MG/DL (8.5-10.1); Magnesium 2.1 MG/DL (1.8-2.4); Osmolality,Calculated 287.4 MOS/KG (273-304); Potassium 4.2 MMOL/L (3.5-5.1)
[2016-08-10 05:12] LABS: Prealbumin 20.4 MG/DL (20-40)
[2016-08-10] MEDS: ENOXAPARIN 40 MG/0.4 ML SYRINGE SUBCUT SCH (06:23)
--- NOTE | 2016-08-10 06:51 | Pulmonology Progress Note ---
Pulmonary - PN: Subj Interval history: This 89-year-old black female came in with congestive heart failure apparently non-STEMI. 20% ejection fraction. She remains on the ventilator but she is doing prolonged CPAP trials. Mental status is not good. We will continue with CPAP's. She does have a good bit of metabolic alkalosis so we will add Diamox. Exam (Progress Note) - Constitutional Vitals: Period Temp Pulse Resp BP Sys/Cruz Pulse Ox Last 24 Hr 97.4 F-98.2 F 71-96 12-23 89-118/41-68 99-100 Exam: Patient is not responsive. Vital signs normal. Pupils react to light. Orotracheal tube in place. Neck is supple no bruits. Chest reveals a few basilar rhonchi otherwise clear. Heart is muffled she does have a grade 1/6 systolic murmur at the left sternal border. Abdomen soft no masses. Extremities no clubbing cyanosis or edema. Results - Labs CBC & BMP: 08/10/16 04:20 08/10/16 04:20 Lab Results: I have reviewed the past 24 hour labs - Diagnostic Findings Procedure: Chest x-ray: image reviewed by me (ET tube good position. Slight infiltrate in the right upper lobe that appears to be new. There is an overlying structure part of the mechanical ventilation tube and that makes it difficult to visualize right upper lobe however.) Assessment and Plan (1) Ischemic cardiomyopathy Status: Acute Assessment and plan: Has 20% ejection fraction on echo. Chest x-ray does not show any odalis pulmonary edema present. Current Visit: Yes (2) Pulmonary edema Status: Acute Assessment and plan: This is improved with diuresis. Current Visit: Yes Qualifiers: Chronicity: acute Qualified Code(s): J81.0 - Acute pulmonary edema (3) NSTEMI (non-ST elevated myocardial infarction) Status: Acute Assessment and plan: Defer to cardiology. Does not appear to be candidate for intervention. Current Visit: Yes (4) Acute respiratory failure Status: Acute Assessment and plan: ABGs look okay except she has a marked metabolic alkalosis. Will add Diamox. Creatinine is normal. Wean as tolerated. mental status will play a part in determining whether to extubate Current Visit: Yes Qualifiers: Respiratory failure complication: hypoxia and hypercapnia Qualified Code(s) : J96.01 - Acute respiratory failure with hypoxia; J96.02 - Acute respiratory failure with hypercapnia
--- NOTE | 2016-08-10 07:21 | XRay Report ---
XR chest 1V portable Indication: Ventilator Comparison: Chest x-ray 08/09/2016 Technique: Portable AP chest was performed. Findings: Multiple tubes and medical support devices appear stable. Improved aeration of the left lung base is demonstrated. Left hemidiaphragm is improved visualization. Impression: 1. Interval partial clearing of airspace disease in the left lung base is suggested. 08/10/2016 7:17 AM PROCEDURE INTERPRETED AT [facility] DEPARTMENT OF RADIOLOGY Final Report Signed by: Dr. Bill Santoyo
--- NOTE | 2016-08-10 08:01 | Cardiology Progress Note ---
Assessment and Plan - Time spent with patient Time spent with patient: Greater than 30 minutes (1) Elevated troponin Status: Acute Assessment and plan: SEE PLAN OF CARE LISTED BELOW Current Visit: Yes (2) LBBB (left bundle branch block) Status: Chronic Assessment and plan: SEE PLAN OF CARE LISTED BELOW Current Visit: Yes (3) Advanced age Status: Chronic Assessment and plan: SEE PLAN OF CARE LISTED BELOW Current Visit: Yes (4) Tachyarrhythmia Status: Resolved Assessment and plan: SEE PLAN OF CARE LISTED BELOW Current Visit: Yes (5) Pulmonary edema Status: Acute Assessment and plan: SEE PLAN OF CARE LISTED BELOW Current Visit: Yes Qualifiers: Chronicity: acute Qualified Code(s): J81.0 - Acute pulmonary edema (6) Acute respiratory failure Status: Acute Assessment and plan: SEE PLAN OF CARE LISTED BELOW Current Visit: Yes Qualifiers: Respiratory failure complication: hypoxia and hypercapnia Qualified Code(s) : J96.01 - Acute respiratory failure with hypoxia; J96.02 - Acute respiratory failure with hypercapnia (7) Respiratory acidosis Status: Resolved Assessment and plan: SEE PLAN OF CARE LISTED BELOW Current Visit: Yes (8) Elevated lactic acid level Status: Resolved Assessment and plan: SEE PLAN OF CARE LISTED BELOW Current Visit: Yes (9) Cardiomyopathy Status: Acute Assessment and plan: SEE PLAN OF CARE LISTED BELOW Current Visit: Yes Qualifiers: Cardiomyopathy type: unspecified Qualified Code(s): I42.9 - Cardiomyopathy , unspecified (10) Mitral regurgitation Status: Acute Assessment and plan: SEE PLAN OF CARE LISTED BELOW Current Visit: Yes (11) Pulmonary hypertension Status: Acute Assessment and plan: SEE PLAN OF CARE LISTED BELOW Current Visit: Yes Cardiology - PN: Subj Interval history: 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 FELTON SUMMARY: Ms. Daugherty, 89BF, without a prior history of cardiac disease. According to family, she lived independently taking care of her ADLs without difficulty. Patient was admitted August 07, 2016 with acute shortness of breath requiring intubation in the emergency department. She was found to be hypotensive and in in SVT. She was treated with IV Amiodarone. She has been diagnosed with newly discovered cardiomyopathy, EF 20%, moderate to severe MR, severe TR, PAP 70-75 mmHg. Troponins have remained slightly elevated but flat ( 0.211-0.360). 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 AUGUST 10, 2016: Overnight, pressors have been weaned off and blood pressure stable. Remains on the ventilator but is doing prolonged CPAP trials. She has been off Diprovan for 48 hours with little response. She does have a history of dementia but, as I understand, she was living independently taking care of her ADLs prior to this event. Over the weekend she has diuresed relatively well. There is a question as to whether she had pneumonia however, it is believed that this is a chronic interstitial scarring and not an active pneumonia on admission. IV Amiodarone was changed to oral amiodarone over the weekend. Chronic left bundle branch block. No arrhythmia over the weekend. Diamox added for metabolic alkalosis. At some point, patient may benefit from heart catheterization once her comorbidities stabilize. I will further discuss with Dr. Hernadez and await additional recommendations. ASSESSMENT/PLAN: 1. ACUTE RESPIRATORY FAILURE - now intubated, CPAP trials. Her mental status will play a major factor of when/if to extubate. 2. ACUTE CHF -secondary to systolic dysfunction (EF 20%) and diastolic dysfunction, NYHA Class III-IV. Patient has diuresed well. I will decrease her Lasix from 60 mg twice daily to 40 mg twice daily and monitor closely. 4. MITRAL REGURGITATION, MODERATE TO SEVERE - CARDIAC MURMUR - suspicious for mitral regurgitation. Echocardiogram pending 5. ELEVATED TROPONIN - flat throughout hospitalization. Not sure this is NSTEMI but will treat accordingly. Unable to tolerate betablocker or STANLEY, nitrates. Continue ASA, lipid lowering agent. 6. PULMONARY HYPERTENSION, SEVERE - continue current plan of care 7. LBBB, CHRONIC - continue current plan of care. 8. TACHYARRYTHMIA - is reported her heart rate was around 170 bpm. I do see an EKG with sinus tachycardia 130s. She received IV Amiodarone protocol and was transitioned to 200 mg twice a day this weekend. No arrhythmias recorded. 9. METABOLIC ALKALOSIS - Diamox was initiated. 10. CARDIOMYOPATHY - suspected to be ischemic. Afterload reduction when blood pressure will allow. 11. DEMENTIA - continue current plan of care. Exam (Progress Note) - Constitutional Vitals: Period Temp Pulse Resp BP Sys/Cruz Pulse Ox Last 24 Hr 97.4 F-98.2 F 84-97 12-23 89-118/41-68 98-100 Exam: General: [Appears well with no apparent distress.] [Pleasant and cooperative. ] [Appears comfortable.] HEENT: [Normocephalic, atraumatic. Mucous membranes moist. No jaundice noted. Conjunctiva moist and clear, sclerae anicteric] Neck: No JVD/HJR, no thyromegaly or lymphadenopathy noted. No carotid bruit appreciated Cardiac: [Regular rate and rhythm.] [III/ HSM heard best at 5 ICS left. Lungs: [Course sounds without active wheezing. Symmetrical chest wall movements noted. Remains intubated. Abdomen: Soft, bowel sounds normoactive. Nontender and nondistended. No abdominal bruit or thrill noted. No masses noted. Musculoskeletal: No fluid collection. Decreased range of motion is noted. Extremities: No clubbing, cyanosis noted. [ No edema noted.] Upper extremity pulses 2+. Lower extremity pulses 1+. Capillary refill less than 3 seconds. Skin: No unusual lesions or rashes. No skin breakdown appreciated. Neuro: Awake, alert and oriented 3. Moves all extremities well without hemiparesis or paralysis. No essential tremor is appreciated. Result/EKG - Labs CBC & BMP: 08/10/16 04:20 08/10/16 04:20 Lab Results: I have reviewed the past 24 hour labs Labs: Laboratory Results - last 24 hr 08/09/16 08/09/16 08/09/16 07:30 11:38 15:45 WBC RBC Hgb Hct MCV MCH MCHC RDW Plt Count MPV Neut % (Auto) Lymph % (Auto) Pinal % (Auto) Eos % (Auto) Baso % (Auto) Neut # (Auto) Lymph # (Auto) Pinal # (Auto) Eos # (Auto) Baso # (Auto) Immature Gran % Nucleated RBC % Immature Gran # Nucleated RBCs # ABG pH ABG pCO2 ABG pO2 ABG HCO3 ABG Total CO2 ABG O2 Saturation ABG Base Excess FiO2 Sodium Potassium Chloride Carbon Dioxide Anion Gap BUN Creatinine GFR Calculation BUN/Creatinine Ratio Glucose POC Glucose 151 H 148 H 140 H Calculated Osmolality Calcium Phosphorus Magnesium B-Natriuretic Peptide Prealbumin 08/09/16 08/09/16 08/10/16 20:18 23:59 04:02 WBC RBC Hgb Hct MCV MCH MCHC RDW Plt Count MPV Neut % (Auto) Lymph % (Auto) Pinal % (Auto) Eos % (Auto) Baso % (Auto) Neut # (Auto) Lymph # (Auto) Pinal # (Auto) Eos # (Auto) Baso # (Auto) Immature Gran % Nucleated RBC % Immature Gran # Nucleated RBCs # ABG pH 7.509 H ABG pCO2 47.5 ABG pO2 154.0 H ABG HCO3 36.8 H ABG Total CO2 33.9 H ABG O2 Saturation 99.6 ABG Base Excess 12.9 H FiO2 40.00 Sodium Potassium Chloride Carbon Dioxide Anion Gap BUN Creatinine GFR Calculation BUN/Creatinine Ratio Glucose POC Glucose 193 H 117 H Calculated Osmolality Calcium Phosphorus Magnesium B-Natriuretic Peptide Prealbumin 08/10/16 08/10/16 08/10/16 04:20 04:20 04:20 WBC 8.2 RBC 3.50 L Hgb 10.3 L Hct 31.2 L MCV 89.1 MCH 29 MCHC 33.0 RDW 14.6 Plt Count 142 MPV 10.6 Neut % (Auto) 78.3 H Lymph % (Auto) 13.5 L Pinal % (Auto) 6.7 Eos % (Auto) 1.0 Baso % (Auto) 0.1 Neut # (Auto) 6.4 Lymph # (Auto) 1.1 L Pinal # (Auto) 0.6 Eos # (Auto) 0.1 Baso # (Auto) 0.0 Immature Gran % 0.4 Nucleated RBC % 0.0 Immature Gran # 0.03 Nucleated RBCs # 0.00 ABG pH ABG pCO2 ABG pO2 ABG HCO3 ABG Total CO2 ABG O2 Saturation ABG Base Excess FiO2 Sodium 140 Potassium 4.2 Chloride 95 L Carbon Dioxide 42 H Anion Gap 7.2 BUN 34 H Creatinine 1.00 GFR Calculation 52 BUN/Creatinine Ratio 34.00 H Glucose 112 H POC Glucose Calculated Osmolality 287.4 Calcium 8.7 Phosphorus 4.0 Magnesium 2.1 B-Natriuretic Peptide Prealbumin 20.4 08/10/16 08/10/16 08/10/16 04:20 04:26 07:49 WBC RBC Hgb Hct MCV MCH MCHC RDW Plt Count MPV Neut % (Auto) Lymph % (Auto) Pinal % (Auto) Eos % (Auto) Baso % (Auto) Neut # (Auto) Lymph # (Auto) Pinal # (Auto) Eos # (Auto) Baso # (Auto) Immature Gran % Nucleated RBC % Immature Gran # Nucleated RBCs # ABG pH ABG pCO2 ABG pO2 ABG HCO3 ABG Total CO2 ABG O2 Saturation ABG Base Excess FiO2 Sodium Potassium Chloride Carbon Dioxide Anion Gap BUN Creatinine GFR Calculation BUN/Creatinine Ratio Glucose POC Glucose 132 H 148 H Calculated Osmolality Calcium Phosphorus Magnesium B-Natriuretic Peptide 500 H Prealbumin - Diagnostic Findings Procedure: Chest x-ray: report reviewed by me - EKG EKG results: interpreted by me EKG shows: sinus rhythm (LBBB)
[2016-08-10] MEDS: LORazepam 2 MG/1 ML VIAL IV PRN ×2 (08:31→19:38)
[2016-08-10] MEDS: FUROSEMIDE 40 MG/4 ML VIAL IV SCH ×2 (08:31→16:19)
[2016-08-10] MEDS: PANTOPRAZOLE 40 MG VIAL IV SCH (08:31)
[2016-08-10] MEDS: MULTIVITAMIN LIQUID (CENTRUM) 60 ML BOTTLE PO SCH (08:32)
[2016-08-10] MEDS: AMIODARONE 200 MG TABLET PO SCH ×2 (08:32→20:34)
[2016-08-10] MEDS: ASPIRIN 325 MG TABLET PO SCH (08:32)
[2016-08-10] MEDS: DESITIN 4OZ/NYSTATIN 15 GRAM MIXTURE PASTE TOP SCH ×2 (08:33→20:34)
--- NOTE | 2016-08-10 12:53 | Hospitalist Progress Note ---
Assessment and Plan (1) Acute respiratory failure Status: Acute Assessment and plan: Now that she has been here a day and we have results of the echo, the best explanation for her resp failure is pulmonary edema from CHF complicated by MR that she had no symptoms of until just before she decompensated. She has an EF of 20%. She has diuresed and with ventilation her hypoxia resolved and her CXR looks improved. Cardiology decreasing lasix dose today. On oral amio. Her UOP is better and her creatinine has come down to 1.0- her baseline is unknown but may be lower than that given her age and size. Her troponins have not risen much and she does not need urgent cath at this point. Dr Andrade is leaning toward medical management at this point. She does not have pneumonia at this time. Continue morphine and ativan prn for sedation/comfort. CPAP trials continue, hope for extubation in am. Continue tube feeds. Current Visit: Yes Qualifiers: Respiratory failure complication: hypoxia and hypercapnia Qualified Code(s) : J96.01 - Acute respiratory failure with hypoxia; J96.02 - Acute respiratory failure with hypercapnia (2) Pulmonary edema Status: Acute Current Visit: Yes Qualifiers: Chronicity: acute Qualified Code(s): J81.0 - Acute pulmonary edema (3) NSTEMI (non-ST elevated myocardial infarction) Status: Deleted Current Visit: Yes (4) SVT (supraventricular tachycardia) Status: Acute Current Visit: Yes (5) Hyperglycemia Status: Acute Current Visit: Yes (6) Elevated lactic acid level Status: Resolved Current Visit: Yes (7) Advanced age Status: Chronic Current Visit: Yes Hospitalist: Subjective Interval history: Mrs Daugherty remains stable on the vent. She is doing well with only occ morphine or ativan for sedation. Her BP remains in normal range off levophed which happened when diprivan stopped. She has been doing CPAP. UOP remains good. TOlerating tube feeds. Exam - Constitutional Vitals: Period Temp Pulse Resp BP Sys/Cruz Pulse Ox Last 24 Hr 97.4 F-98.7 F 85-99 12-26 87-118/42-60 95-100 General appearance: no acute distress, under weight - Eye Eye exam: Present: EOMI. Absent: scleral icterus Pupils: Present: TACHO - Respiratory Respiratory exam: Present: clear to auscultation bilaterally - Cardiovascular Cardiovascular exam: Present: regular rate and rhythm - GI/Abdominal GI/Abdominal exam: Present: normal bowel sounds, soft. Absent: tenderness - Extremities Exam Extremities exam: Absent: edema - Neurological Exam Neurological exam: Present: other (cooperative, purposeful with movements.) Results - Labs CBC & BMP: 08/10/16 04:20 08/10/16 04:20 Lab Results: I have reviewed the past 24 hour labs
[2016-08-10] MEDS: ATORVASTATIN 20 MG TABLET PO SCH (20:34)
[2016-08-11] MEDS: INSULIN REGULAR 100 UNIT/ML SUBCUT SCH ×4 (00:20→18:10)
[2016-08-11 04:21] LABS: Allen Test Positive; Pt O2 Delivery Device Ventilator
[2016-08-11 04:24] LABS: ABG Base Excess 10.1 MMOL/L (-2.5-2.5); ABG HCO3 33.9 MMOL/L (20-26); ABG Oxygen Saturation 98.6 % (95-100); ABG PCO2 47.8 MM HG (35-48); ABG PH 7.475 (7.35-7.45); ABG TCO2 31.4 MMOL/L (23-27)
[2016-08-11 04:32] LABS: Basophils % 0.2 % (0.0-0.8); Eosinophils % 0.6 % (0.00-10.9); Hematocrit 33.8 VOL% (35.7-47.0); Immature Granulocytes % 0.3 %; Immature Granulocytes Absolute 0.02 #; Lymphocytes % 15.9 % (21.3-54.2); Mean Corpuscular HGB Conc 32.5 GM/DL (32-36); Mean Corpuscular Hemoglobin 29 PG (27-34); Mean Corpuscular Volume 88.5 FL (87-102); Mean Platelet Volume 11.1 FL (9.6-12.0); Monocytes # 0.6 10*3/uL (0.11-0.8); Monocytes % 8.5 % (1.7-12.7); Neutrophils # 4.9 10*3/uL (1.4-7.4); Neutrophils % 74.5 % (38.7-73.9); Platelet Count 175 T/CUMM (130-400); Red Blood Count 3.82 MC/CUMM (3.8-5.5); Red Cell Distribution Width 14.5 % (9.3-17.3); White Blood Count 6.6 T/CUMM (4-12)
[2016-08-11] MEDS: PROPOFOL 1,000 MG/100 ML BOTTLE IV SCH (04:34)
[2016-08-11] MEDS: NOREPINEPHRINE 8 MG in SODIUM CHLORIDE 0.9% 242 ML IV SCH (04:35)
[2016-08-11 04:55] LABS: Calcium 9.2 MG/DL (8.5-10.1); Magnesium 2.6 MG/DL (1.8-2.4); Osmolality,Calculated 287.5 MOS/KG (273-304)
[2016-08-11] MEDS: ENOXAPARIN 40 MG/0.4 ML SYRINGE SUBCUT SCH (06:12)
--- NOTE | 2016-08-11 06:42 | Pulmonology Progress Note ---
Pulmonary - PN: Subj Interval history: This 89-year-old black female came in with congestive heart failure apparently non-STEMI. 20% ejection fraction. She remains on the ventilator but she is doing prolonged CPAP trials. Mental status is not good. We will continue with CPAP's. She does have a good bit of metabolic alkalosis so we will add Diamox. 08/11/2016 patient has done well with prolonged CPAP trials. Chest x-ray is clear. Congestive heart failure under control. She has a severe cardiomyopathy and a superimposed non-ST elevation myocardial infarction. Main problem now is that she is not responding. She will respond slowly to painful stimulus but nothing purposeful. Suggest we get neurologic evaluation. Exam (Progress Note) - Constitutional Vitals: Period Temp Pulse Resp BP Sys/Cruz Pulse Ox Last 24 Hr 97.7 F-99.0 F 94-110 12-28 79-117/41-60 95-100 Exam: Patient is not responsive. Vital signs normal. Blood pressure around 90 systolic. Pupils react to light. Orotracheal tube in place. Neck is supple no bruits. Chest reveals a few basilar rhonchi otherwise clear. Heart is muffled she does have a grade 1/6 systolic murmur at the left sternal border. Abdomen soft no masses. Extremities no clubbing cyanosis or edema. Results - Labs CBC & BMP: 08/11/16 03:45 08/11/16 03:45 Lab Results: I have reviewed the past 24 hour labs - Diagnostic Findings Procedure: Chest x-ray: image reviewed by me (ET tube in good position. Minimal basilar infiltrates. Looks much better.) Assessment and Plan (1) Ischemic cardiomyopathy Status: Acute Assessment and plan: Has 20% ejection fraction on echo. Chest x-ray does not show any odalis pulmonary edema present. 08/11/2016 severe ischemic cardiomyopathy with superimposed myocardial infarction. Cardiology following. Current Visit: Yes (2) Pulmonary edema Status: Acute Assessment and plan: This is improved with diuresis. 08/11/2016 chest x-ray her pulmonary edema has resolved. Current Visit: Yes Qualifiers: Chronicity: acute Qualified Code(s): J81.0 - Acute pulmonary edema (3) NSTEMI (non-ST elevated myocardial infarction) Status: Deleted Assessment and plan: Defer to cardiology. Does not appear to be candidate for intervention. 08/11/2016 cardiac enzymes she had a non-STEMI. Current Visit: Yes (4) Acute respiratory failure Status: Acute Assessment and plan: ABGs look okay except she has a marked metabolic alkalosis. Will add Diamox. Creatinine is normal. Wean as tolerated. mental status will play a part in determining whether to extubate 08/11/2016 ABGs look good. She does have some metabolic alkalosis and an elevated PCO2. We do have her on Diamox. Blood pressure on the low side. Watching closely. By ABGs and chest x-ray she should be ready to wean. However her mental status is not good and needs further evaluation. Current Visit: Yes Qualifiers: Respiratory failure complication: hypoxia and hypercapnia Qualified Code(s) : J96.01 - Acute respiratory failure with hypoxia; J96.02 - Acute respiratory failure with hypercapnia
--- NOTE | 2016-08-11 07:02 | XRay Report ---
History is ventilator management Comparison 08/10/2016 The heart is at the upper and normal in size. Support device is grossly unchanged including ET tube tip is above the michelle Minimal reticular opacities in the lung bases again seen without more focal lingular infiltrate. Small elongated and minimally nodular opacities over the lung apices remain for which continued follow-up is recommended. Impression: No significant change. See above PROCEDURE INTERPRETED AT [facility] DEPARTMENT OF RADIOLOGY Final Report Signed by: Dr. Karla Perdue
[2016-08-11] MEDS: FUROSEMIDE 40 MG/4 ML VIAL IV SCH (07:49)
[2016-08-11] MEDS: LORazepam 2 MG/1 ML VIAL IV PRN ×2 (07:57→20:15)
--- NOTE | 2016-08-11 08:59 | Cardiology Progress Note ---
Assessment and Plan (1) Ischemic cardiomyopathy Status: Acute Assessment and plan: 89-year-old black female, admitted with respiratory insufficiency, CHF, hypertension. Newly diagnosed severe cardiomyopathy, ejection fraction 20%, moderate to severe mitral regurgitation, severe pulmonary hypertension. Initially on pressors, now weaned off. Advanced age, dementia, also had suspected SVT on admission. Regular LBBB tachycardia, no sudden A changes on available tracings. This is likely either sinus tachycardia or AT/AFL. Now, in sinus rhythm, sinus tachycardia. -Cardiomyopathy, CHF. Off pressors. Once stable, will start beta-faustino and ACEI. BP still too low to start this. -Cont ASA, atorvastatin -Continue p.o. amiodarone. If no recurrence of tachycardia, we may not need this long-term -decrease Lasix to 40 mg iv qd. Low BP. Moderate to severe MR, severe pulmonary hypertension. -Still on vent, poor MS. -Elevated troponins. Trend suggestive of demand ischemia so far. -Cardiac workup will need to include right/left heart catheterization, if the patient/family wishes to pursue so. Advanced age, dementia. For now, continue supportive medical management. Current Visit: Yes (2) Acute respiratory failure Status: Acute Current Visit: Yes Qualifiers: Respiratory failure complication: hypoxia and hypercapnia Qualified Code(s) : J96.01 - Acute respiratory failure with hypoxia; J96.02 - Acute respiratory failure with hypercapnia (3) CAP (community acquired pneumonia) Status: Acute Current Visit: Yes (4) LBBB (left bundle branch block) Status: Chronic Current Visit: Yes Cardiology - PN: Subj Interval history: BP is borderline low off pressor. MS remains poor off sedation. Still on the vent. Exam (Progress Note) - Constitutional Vitals: Period Temp Pulse Resp BP Sys/Cruz Pulse Ox Last 24 Hr 97.7 F-99.0 F 94-110 12-28 79-117/41-58 97-100 General appearance: no acute distress, under weight - Head Head exam: Present: normal inspection, normocephalic - Eye Eye exam: Absent: periorbital swelling, laceration to eyelids - Neck Neck exam: Present: normal inspection - Respiratory Respiratory exam: Present: clear to auscultation bilaterally. Absent: accessory muscle use - Cardiovascular Cardiovascular exam: Present: regular rate and rhythm, systolic murmur - GI/Abdominal GI/Abdominal exam: Present: hypoactive bowel sounds. Absent: distended - Extremities Exam Extremities exam: Present: normal inspection, normal capillary refill. Absent: edema - Neurological Exam Neurological exam: Present: altered, other (Unresponsive) - Skin Skin exam: Present: normal color, warm. Absent: cyanosis Result/EKG - Labs CBC & BMP: 08/11/16 03:45 08/11/16 03:45 Lab Results: I have reviewed the past 24 hour labs Labs: Laboratory Results - last 24 hr 08/10/16 08/10/16 08/10/16 11:55 17:52 23:21 WBC RBC Hgb Hct MCV MCH MCHC RDW Plt Count MPV Neut % (Auto) Lymph % (Auto) [place] % (Auto) Eos % (Auto) Baso % (Auto) Neut # (Auto) Lymph # (Auto) [place] # (Auto) Eos # (Auto) Baso # (Auto) Immature Gran % Nucleated RBC % Immature Gran # Nucleated RBCs # ABG pH ABG pCO2 ABG pO2 ABG HCO3 ABG Total CO2 ABG O2 Saturation ABG Base Excess FiO2 Sodium Potassium Chloride Carbon Dioxide Anion Gap BUN Creatinine GFR Calculation BUN/Creatinine Ratio Glucose POC Glucose 163 H 178 H 145 H Calculated Osmolality Calcium Magnesium 08/11/16 08/11/16 08/11/16 03:45 03:45 03:45 WBC 6.6 RBC 3.82 Hgb 11.0 L Hct 33.8 L MCV 88.5 MCH 29 MCHC 32.5 RDW 14.5 Plt Count 175 D MPV 11.1 Neut % (Auto) 74.5 H Lymph % (Auto) 15.9 L [place] % (Auto) 8.5 Eos % (Auto) 0.6 Baso % (Auto) 0.2 Neut # (Auto) 4.9 Lymph # (Auto) 1.0 L [place] # (Auto) 0.6 Eos # (Auto) 0.0 Baso # (Auto) 0.0 Immature Gran % 0.3 Nucleated RBC % 0.0 Immature Gran # 0.02 Nucleated RBCs # 0.00 ABG pH 7.475 H ABG pCO2 47.8 ABG pO2 107.0 H ABG HCO3 33.9 H ABG Total CO2 31.4 H ABG O2 Saturation 98.6 ABG Base Excess 10.1 H FiO2 30.00 Sodium 139 Potassium 4.0 Chloride 93 L Carbon Dioxide 39 H Anion Gap 11.0 BUN 40 H Creatinine 1.20 H GFR Calculation 42 BUN/Creatinine Ratio 33.00 H Glucose 117 H POC Glucose Calculated Osmolality 287.5 Calcium 9.2 Magnesium 2.6 H 08/11/16 05:33 WBC RBC Hgb Hct MCV MCH MCHC RDW Plt Count MPV Neut % (Auto) Lymph % (Auto) [place] % (Auto) Eos % (Auto) Baso % (Auto) Neut # (Auto) Lymph # (Auto) [place] # (Auto) Eos # (Auto) Baso # (Auto) Immature Gran % Nucleated RBC % Immature Gran # Nucleated RBCs # ABG pH ABG pCO2 ABG pO2 ABG HCO3 ABG Total CO2 ABG O2 Saturation ABG Base Excess FiO2 Sodium Potassium Chloride Carbon Dioxide Anion Gap BUN Creatinine GFR Calculation BUN/Creatinine Ratio Glucose POC Glucose 158 H Calculated Osmolality Calcium Magnesium - EKG EKG results: interpreted by me
[2016-08-11] MEDS ORDERED: FUROSEMIDE 40 MG/4 ML VIAL IV SCH (09:00)
[2016-08-11] MEDS: PANTOPRAZOLE 40 MG VIAL IV SCH (09:36)
[2016-08-11] MEDS: MULTIVITAMIN LIQUID (CENTRUM) 60 ML BOTTLE PO SCH (09:41)
[2016-08-11] MEDS: AMIODARONE 200 MG TABLET PO SCH ×2 (09:41→20:12)
[2016-08-11] MEDS: ASPIRIN 325 MG TABLET PO SCH (09:41)
[2016-08-11] MEDS: DESITIN 4OZ/NYSTATIN 15 GRAM MIXTURE PASTE TOP SCH ×2 (09:42→20:13)
--- NOTE | 2016-08-11 13:34 | Hospitalist Progress Note ---
Assessment and Plan (1) Acute respiratory failure Status: Acute Assessment and plan: The best explanation for her resp failure is pulmonary edema from CHF complicated by MR that she had no symptoms of until just before she decompensated, with NSTEMI in addition. She has an EF of 20%. She has diuresed and with ventilation her hypoxia resolved and her CXR is improved. On oral amio. She did CPAP for 12 hours yesterday. She may need heart cath after extubation. Sedation- she was more responsive yesterday than today after ativan. We can consult neurology when he returns on the if she has not improved. Her UOP is better buther creatinine is rising- I will hold her lasix today. She does not have any extra fluid. Her troponins have not risen much and she does not need urgent cath at this point. Dr Andrade is leaning toward medical management at this point. She does not have pneumonia at this time. Continue morphine and ativan prn for sedation/comfort. CPAP trials continue, hope for extubation in am. Continue tube feeds. Current Visit: Yes Qualifiers: Respiratory failure complication: hypoxia and hypercapnia Qualified Code(s) : J96.01 - Acute respiratory failure with hypoxia; J96.02 - Acute respiratory failure with hypercapnia (2) Pulmonary edema Status: Acute Current Visit: Yes Qualifiers: Chronicity: acute Qualified Code(s): J81.0 - Acute pulmonary edema (3) NSTEMI (non-ST elevated myocardial infarction) Status: Deleted Current Visit: Yes (4) SVT (supraventricular tachycardia) Status: Acute Current Visit: Yes (5) Hyperglycemia Status: Acute Current Visit: Yes (6) Elevated lactic acid level Status: Resolved Current Visit: Yes (7) Advanced age Status: Chronic Current Visit: Yes Hospitalist: Subjective Interval history: Mrs Daugherty remained stable on the vent. This morning when I saw her she was tachycardic on CPAP. She received ativan and on reassessment is sedated. Yesterday she was purposeful in her movements and opened her eyes when I called her name. I have talked to her daughter to update her on her mother's progress. Exam - Constitutional Vitals: Period Temp Pulse Resp BP Sys/Cruz Pulse Ox Last 24 Hr 97.9 F-99.0 F 92-140 12-32 79-137/32-72 97-99 General appearance: no acute distress, under weight - Eye Pupils: Present: TACHO - Respiratory Respiratory exam: Present: clear to auscultation bilaterally - Cardiovascular Cardiovascular exam: Present: regular rate and rhythm - GI/Abdominal GI/Abdominal exam: Present: normal bowel sounds, soft. Absent: tenderness - Extremities Exam Extremities exam: Absent: edema Results - Labs CBC & BMP: 08/11/16 03:45 08/11/16 03:45 Lab Results: I have reviewed the past 24 hour labs
[2016-08-11] MEDS: ATORVASTATIN 20 MG TABLET PO SCH (20:12)
[2016-08-12] MEDS: INSULIN REGULAR 100 UNIT/ML SUBCUT SCH ×5 (00:02→23:30)
[2016-08-12] MEDS: PROPOFOL 1,000 MG/100 ML BOTTLE IV SCH (01:48)
[2016-08-12 03:39] LABS: Basophils % 0.2 % (0.0-0.8); Eosinophils % 0.5 % (0.00-10.9); Hemoglobin 11.2 GM/DL (12.0-16.0); Immature Granulocytes % 0.3 %; Immature Granulocytes Absolute 0.02 #; Lymphocytes # 1.1 10*3/uL (1.4-4.0); Mean Corpuscular HGB Conc 33.9 GM/DL (32-36); Mean Corpuscular Hemoglobin 30 PG (27-34); Mean Platelet Volume 11.1 FL (9.6-12.0); Monocytes # 0.7 10*3/uL (0.11-0.8); Monocytes % 10.9 % (1.7-12.7); Neutrophils # 4.3 10*3/uL (1.4-7.4); Neutrophils % 70.1 % (38.7-73.9); Platelet Count 175 T/CUMM (130-400); Red Blood Count 3.75 MC/CUMM (3.8-5.5); Red Cell Distribution Width 14.1 % (9.3-17.3); White Blood Count 6.1 T/CUMM (4-12)
[2016-08-12 03:47] LABS: Allen Test Positive; Pt O2 Delivery Device Ventilator
[2016-08-12 03:51] LABS: ABG Base Excess 10.2 MMOL/L (-2.5-2.5); ABG HCO3 33.9 MMOL/L (20-26); ABG Oxygen Saturation 97.1 % (95-100); ABG PCO2 52.4 MM HG (35-48); ABG PH 7.446 (7.35-7.45); ABG PO2 89.4 MM HG (80-95); ABG TCO2 32.2 MMOL/L (23-27)
[2016-08-12 04:07] LABS: Osmolality,Calculated 291.7 MOS/KG (273-304); Potassium 3.4 MMOL/L (3.5-5.1)
[2016-08-12] MEDS: ENOXAPARIN 40 MG/0.4 ML SYRINGE SUBCUT SCH (06:32)
--- NOTE | 2016-08-12 06:45 | CT Report ---
CT head/brain wo con Indication: Decreased level of consciousness. Comparison: None. Technique: CT of the brain was performed without administration of intravenous contrast. The CT examination was performed using one or more of the following dose reduction techniques: Automatic exposure control, adjustment of the mA and kV according to patient size, use of acute or iterative reconstruction techniques. Findings: There is no evidence of acute intracranial mass, hemorrhage, or infarction. Generalized cerebral atrophy is present. Disproportionate Central compared to cortical atrophy is suggested. This finding is nonspecific and in the correct clinical scenario could reflect evidence of normal pressure hydrocephalus. Areas of decreased attenuation within the periventricular white matter and cerebral white matter are present which could be compatible with microvascular ischemia. The basal cisterns are patent. No significant abnormality is demonstrated to involve the posterior fossa or cerebellum. Orbits and globes demonstrate no evidence of significant pathology. The paranasal sinuses are clear. No significant abnormality is demonstrated to involve the mastoid air cells. The calvarium and overlying soft tissues demonstrate no evidence of acute pathology. NG tube is present from the right nares into the visualized portion of the oropharynx. Impression: 1. No CT evidence of acute intracranial pathology. Generalized atrophy and findings compatible with microvascular ischemia are present. 2. Nonspecific disproportionate Central compared to cortical atrophy in the correct clinical scenario could reflect evidence of normal pressure hydrocephalus. 08/12/2016 6:40 AM PROCEDURE INTERPRETED AT [facility] DEPARTMENT OF RADIOLOGY Final Report Signed by: Dr. Bill Santoyo
--- NOTE | 2016-08-12 07:59 | Cardiology Progress Note ---
Assessment and Plan - Time spent with patient Time spent with patient: Greater than 30 minutes (1) Elevated troponin Status: Acute Assessment and plan: SEE PLAN OF CARE LISTED BELOW Current Visit: Yes (2) LBBB (left bundle branch block) Status: Chronic Assessment and plan: SEE PLAN OF CARE LISTED BELOW Current Visit: Yes (3) Advanced age Status: Chronic Assessment and plan: SEE PLAN OF CARE LISTED BELOW Current Visit: Yes (4) Tachyarrhythmia Status: Resolved Assessment and plan: SEE PLAN OF CARE LISTED BELOW Current Visit: Yes (5) Pulmonary edema Status: Acute Assessment and plan: SEE PLAN OF CARE LISTED BELOW Current Visit: Yes Qualifiers: Chronicity: acute Qualified Code(s): J81.0 - Acute pulmonary edema (6) Acute respiratory failure Status: Acute Assessment and plan: SEE PLAN OF CARE LISTED BELOW Current Visit: Yes Qualifiers: Respiratory failure complication: hypoxia and hypercapnia Qualified Code(s) : J96.01 - Acute respiratory failure with hypoxia; J96.02 - Acute respiratory failure with hypercapnia (7) Respiratory acidosis Status: Resolved Assessment and plan: SEE PLAN OF CARE LISTED BELOW Current Visit: Yes (8) Elevated lactic acid level Status: Resolved Assessment and plan: SEE PLAN OF CARE LISTED BELOW Current Visit: Yes (9) Cardiomyopathy Status: Acute Assessment and plan: SEE PLAN OF CARE LISTED BELOW Current Visit: Yes Qualifiers: Cardiomyopathy type: unspecified Qualified Code(s): I42.9 - Cardiomyopathy , unspecified (10) Mitral regurgitation Status: Acute Assessment and plan: SEE PLAN OF CARE LISTED BELOW Current Visit: Yes (11) Pulmonary hypertension Status: Acute Assessment and plan: SEE PLAN OF CARE LISTED BELOW Current Visit: Yes Cardiology - PN: Subj Interval history: FIRE RANGER: (NEW) DR. FELTON SUMMARY: Ms. Daugherty, 89BF, without a prior history of cardiac disease. According to family, she lived independently taking care of her ADLs without difficulty. Patient was admitted August 07, 2016 with acute shortness of breath requiring intubation in the emergency department. She was found to be hypotensive and in in SVT. She was treated with IV Amiodarone. She has been diagnosed with newly discovered cardiomyopathy, EF 20%, moderate to severe MR, severe TR, PAP 70-75 mmHg. Troponins have remained slightly elevated but flat ( 0.211-0.360). 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 AUGUST 10, 2016: Overnight, pressors have been weaned off and blood pressure stable. Remains on the ventilator but is doing prolonged CPAP trials. She has been off Diprovan for 48 hours with little response. She does have a history of dementia but, as I understand, she was living independently taking care of her ADLs prior to this event. Over the weekend she has diuresed relatively well. There is a question as to whether she had pneumonia however, it is believed that this is a chronic interstitial scarring and not an active pneumonia on admission. IV Amiodarone was changed to oral amiodarone over the weekend. Chronic left bundle branch block. No arrhythmia over the weekend. Diamox added for metabolic alkalosis. At some point, patient may benefit from heart catheterization once her comorbidities stabilize. I will further discuss with Dr. Hernadez and await additional recommendations. AUGUST 12, 2016: Overnight, no significant change in Ms. Daugherty' condition. She is off pressors but blood pressure will not allow for introduction of an STANLEY inhibitor or beta-faustino at this point. Continues to take aspirin, lipid- lowering agent. No arrhythmia overnight. Continue p.o. Amiodarone. If no recurrence of tachycardia, may not lead long-term. It appears that she has diuresed a total of 4 1/2 - [address] of head this morning revealed no acute abnormality. Lasix was decreased to 40 mg IV daily. Should patient's comorbidities improve, and family wishes to pursue, cardiac workup will need to include right/left heart catheterization. For now, continue supportive medical management. Will further discuss with Dr. Hernadez and await additional recommendations. ASSESSMENT/PLAN: 1. ACUTE RESPIRATORY FAILURE - now intubated, CPAP trials. Her mental status will play a major factor of when/if to extubate. 2. ACUTE CHF - secondary to systolic dysfunction (EF 20%) and diastolic dysfunction, NYHA Class III-IV. Patient has diuresed well. Lasix IV daily. 4. MITRAL REGURGITATION, MODERATE TO SEVERE - continue afterload reduction when able. 5. ELEVATED TROPONIN - flat throughout hospitalization. Suspicious for demand ischemia. Unable to tolerate betablocker or STANLEY, nitrates. Continue ASA, lipid lowering agent. 6. PULMONARY HYPERTENSION, SEVERE - continue current plan of care 7. LBBB, CHRONIC - continue current plan of care. 8. TACHYARRYTHMIA - is reported her heart rate was around 170 bpm. I do see an EKG with sinus tachycardia 130s. She received IV Amiodarone protocol and was transitioned to 200 mg twice a day this weekend. No arrhythmias recorded. May not need Amiodorone long-term if no tachyarrythmia noted. 9. METABOLIC ALKALOSIS - Diamox was initiated. Improved 10. CARDIOMYOPATHY - suspected to be ischemic. Afterload reduction when blood pressure will allow. 11. DEMENTIA - continue current plan of care. Exam (Progress Note) - Constitutional Vitals: Period Temp Pulse Resp BP Sys/Cruz Pulse Ox Last 24 Hr 97.2 F-98.3 F 78-140 12-33 89-146/32-72 95-100 Exam: General: [Thin female. Appears comfortable. Intubated no sedation. ] HEENT: [Normocephalic, atraumatic. Mucous membranes moist. No jaundice noted. Conjunctiva moist and clear, sclerae anicteric] Neck: No JVD/HJR, no thyromegaly or lymphadenopathy noted. No carotid bruit appreciated Cardiac: [Regular rate and rhythm.] [III/ HSM heard best at 5 ICS left. Lungs: [Course sounds without active wheezing. Symmetrical chest wall movements noted. Remains intubated. Abdomen: Soft, bowel sounds normoactive. Nontender and nondistended. No abdominal bruit or thrill noted. No masses noted. Musculoskeletal: No fluid collection. Decreased range of motion is noted. Extremities: No clubbing, cyanosis noted. [ No edema noted.] Upper extremity pulses 2+. Lower extremity pulses 1+. Capillary refill less than 3 seconds. Skin: No unusual lesions or rashes. No skin breakdown appreciated. Neuro: Does not follow commands. No essential tremor is appreciated. Result/EKG - Labs CBC & BMP: 08/12/16 03:19 08/12/16 03:19 Lab Results: I have reviewed the past 24 hour labs Labs: Laboratory Results - last 24 hr 08/11/16 08/11/16 08/11/16 11:39 18:07 23:14 WBC RBC Hgb Hct MCV MCH MCHC RDW Plt Count MPV Neut % (Auto) Lymph % (Auto) [place] % (Auto) Eos % (Auto) Baso % (Auto) Neut # (Auto) Lymph # (Auto) [place] # (Auto) Eos # (Auto) Baso # (Auto) Immature Gran % Nucleated RBC % Immature Gran # Nucleated RBCs # ABG pH ABG pCO2 ABG pO2 ABG HCO3 ABG Total CO2 ABG O2 Saturation ABG Base Excess FiO2 Sodium Potassium Chloride Carbon Dioxide Anion Gap BUN Creatinine GFR Calculation BUN/Creatinine Ratio Glucose POC Glucose 175 H 184 H 211 H Calculated Osmolality Calcium Magnesium 08/12/16 08/12/16 08/12/16 03:19 03:19 03:35 WBC 6.1 RBC 3.75 L Hgb 11.2 L Hct 33.0 L MCV 88.0 MCH 30 MCHC 33.9 RDW 14.1 Plt Count 175 MPV 11.1 Neut % (Auto) 70.1 Lymph % (Auto) 18.0 L [place] % (Auto) 10.9 Eos % (Auto) 0.5 Baso % (Auto) 0.2 Neut # (Auto) 4.3 Lymph # (Auto) 1.1 L [place] # (Auto) 0.7 Eos # (Auto) 0.0 Baso # (Auto) 0.0 Immature Gran % 0.3 Nucleated RBC % 0.0 Immature Gran # 0.02 Nucleated RBCs # 0.00 ABG pH 7.446 ABG pCO2 52.4 H ABG pO2 89.4 ABG HCO3 33.9 H ABG Total CO2 32.2 H ABG O2 Saturation 97.1 ABG Base Excess 10.2 H FiO2 30.00 Sodium 138 Potassium 3.4 L Chloride 93 L Carbon Dioxide 37 H Anion Gap 11.4 BUN 58 H D Creatinine 1.20 H GFR Calculation 40 BUN/Creatinine Ratio 48.00 H Glucose 120 H POC Glucose Calculated Osmolality 291.7 Calcium 9.0 Magnesium 3.0 H 08/12/16 05:37 WBC RBC Hgb Hct MCV MCH MCHC RDW Plt Count MPV Neut % (Auto) Lymph % (Auto) [place] % (Auto) Eos % (Auto) Baso % (Auto) Neut # (Auto) Lymph # (Auto) [place] # (Auto) Eos # (Auto) Baso # (Auto) Immature Gran % Nucleated RBC % Immature Gran # Nucleated RBCs # ABG pH ABG pCO2 ABG pO2 ABG HCO3 ABG Total CO2 ABG O2 Saturation ABG Base Excess FiO2 Sodium Potassium Chloride Carbon Dioxide Anion Gap BUN Creatinine GFR Calculation BUN/Creatinine Ratio Glucose POC Glucose 123 H Calculated Osmolality Calcium Magnesium - EKG EKG results: interpreted by me EKG shows: sinus rhythm (LBBB)
--- NOTE | 2016-08-12 08:18 | Pulmonology Progress Note ---
Pulmonary - PN: Subj Interval history: Patient is an 89-year-old black lady that came in with acute respiratory failure. She was felt to have acute pulmonary edema and has a cardiomyopathy. She may have had a small [place]. She has been on the ventilator all weekend and has done CPAP fairly well off and on. Other times she gets very restless. She has not been very alert and has a history of dementia. Her chest x-ray is clear nicely and her oxygenation is better. She will continue weaning from the ventilator and hopefully she can be extubated soon. Exam (Progress Note) - Constitutional Vitals: Period Temp Pulse Resp BP Sys/Cruz Pulse Ox Last 24 Hr 97.2 F-98.6 F 78-128 12-34 89-146/44-72 95-100 Exam: General appearance: no acute distress (Patient is comfortable on the ventilator but does not arouse very well.), under weight - Head Head exam: Present: normal inspection, normocephalic - Eye Eye exam: Present: EOMI. Absent: scleral icterus Pupils: Present: TACHO - ENT ENT exam: Present: other (ET tube is in good position) - Neck Neck exam: Absent: lymphadenopathy - Respiratory Respiratory exam: Present: Lungs have good breath sounds bilaterally she is moving air well with no wheeze or rhonchi now. - Cardiovascular Cardiovascular exam: Present: regular rate and rhythm. Her heart rate is under good control. Absent: gallop, systolic murmur - GI/Abdominal GI/Abdominal exam: Present: normal bowel sounds, soft. Absent: organomegaly, tenderness - Extremities Exam Extremities exam: Present: other (Her extremities are rather thin.). Absent: calf tenderness, edema - Neurological Exam Neurological exam: Present: other (She is still poorly responsive.) - Psychiatric Psychiatric exam: Absent: anxious - Skin Skin exam: Present: warm, dry Results - Labs CBC & BMP: 08/12/16 03:19 08/12/16 03:19 Labs: Her PO2 is 89 with a PCO2 52 and a pH of 7.44 - Diagnostic Findings Procedure: Chest x-ray: image reviewed by me, report reviewed by me (Chest x- ray shows mild cardiomegaly and her lung olmos are clear.) Assessment and Plan (1) Pulmonary edema Status: Acute Assessment and plan: The patient came in with pulmonary edema has improved. Her x-ray is better and her oxygenation is stable. Current Visit: Yes Qualifiers: Chronicity: acute Qualified Code(s): J81.0 - Acute pulmonary edema (2) Acute respiratory failure Status: Acute Assessment and plan: The patient presented with respiratory failure and is now stable on the ventilator. Her oxygenation has improved. Chest x-ray is much better and she is doing CPAP at times. We will continue weaning from the ventilator. Current Visit: Yes Qualifiers: Respiratory failure complication: hypoxia and hypercapnia Qualified Code(s) : J96.01 - Acute respiratory failure with hypoxia; J96.02 - Acute respiratory failure with hypercapnia (3) Hyperglycemia Status: Acute Assessment and plan: Her glucose is around 123 now. Current Visit: Yes
[2016-08-12] MEDS: AMIODARONE 200 MG TABLET PO SCH ×2 (08:29→21:00)
[2016-08-12] MEDS: PANTOPRAZOLE 40 MG VIAL IV SCH (08:29)
[2016-08-12] MEDS: DESITIN 4OZ/NYSTATIN 15 GRAM MIXTURE PASTE TOP SCH ×2 (08:29→21:07)
[2016-08-12] MEDS: MULTIVITAMIN LIQUID (CENTRUM) 60 ML BOTTLE PO SCH (08:29)
[2016-08-12] MEDS: ASPIRIN 325 MG TABLET PO SCH (08:29)
--- NOTE | 2016-08-12 10:58 | Hospitalist Progress Note ---
Assessment and Plan (1) Acute respiratory failure Status: Acute Assessment and plan: The best explanation for her resp failure is pulmonary edema from CHF complicated by MR that she had no symptoms of until just before she decompensated, with NSTEMI in addition. She has an EF of 20%. She has diuresed and with ventilation her hypoxia resolved and her CXR is improved. She will be extubated when her MS improves. Head CT morning unremarkable. On oral amio. She may need heart cath after extubation. Sedation- she was more responsive 2 days ago, and ativan has since been minimized. We can consult neurology when he returns on the if she has not improved. Her UOP is better but her creatinine is rising-continue to hold her lasix today. She does not have any extra fluid. Her troponins have not risen much and she does not need urgent cath at this point. Dr Andrade is leaning toward medical management at this point. She does not have pneumonia at this time. Continue morphine and ativan prn for sedation/comfort. CPAP trials continue, hope for extubation in am. Continue tube feeds. Current Visit: Yes Qualifiers: Respiratory failure complication: hypoxia and hypercapnia Qualified Code(s) : J96.01 - Acute respiratory failure with hypoxia; J96.02 - Acute respiratory failure with hypercapnia (2) Pulmonary edema Status: Acute Current Visit: Yes Qualifiers: Chronicity: acute Qualified Code(s): J81.0 - Acute pulmonary edema (3) SVT (supraventricular tachycardia) Status: Acute Current Visit: Yes (4) Hyperglycemia Status: Acute Current Visit: Yes (5) Elevated lactic acid level Status: Resolved Current Visit: Yes (6) Advanced age Status: Chronic Current Visit: Yes Hospitalist: Subjective Interval history: Mrs Daugherty has remained stable on thevent overnight, and is doign CPAP this morning, sometimes breathing in the 30s. She is less alert than 2 days ago. Exam - Constitutional Vitals: Period Temp Pulse Resp BP Sys/Cruz Pulse Ox Last 24 Hr 97.2 F-98.6 F 78-128 12-34 89-146/44-72 95-100 General appearance: no acute distress, under weight - Respiratory Respiratory exam: Present: clear to auscultation bilaterally - Cardiovascular Cardiovascular exam: Present: regular rate and rhythm, tachycardia - GI/Abdominal GI/Abdominal exam: Present: normal bowel sounds, soft. Absent: tenderness - Extremities Exam Extremities exam: Absent: edema - Neurological Exam Neurological exam: Present: other (does not open eyes to voice. withdraws to pain, does reach for ETT.) Results - Labs CBC & BMP: 08/12/16 03:19 08/12/16 03:19 Lab Results: I have reviewed the past 24 hour labs
[2016-08-12] MEDS: ATORVASTATIN 20 MG TABLET PO SCH (20:59)
[2016-08-12] MEDS: MORPHINE 2 MG/1 ML SYRINGE IV PRN (20:59)
[2016-08-13] MEDS: MORPHINE 2 MG/1 ML SYRINGE IV PRN (02:44)
[2016-08-13 02:57] LABS: Basophils % 0.2 % (0.0-0.8); Eosinophils # 0.3 10*3/uL (0.0-0.87); Eosinophils % 4.2 % (0.00-10.9); Hematocrit 32.8 VOL% (35.7-47.0); Hemoglobin 10.7 GM/DL (12.0-16.0); Immature Granulocytes % 0.3 %; Immature Granulocytes Absolute 0.02 #; Lymphocytes # 1.1 10*3/uL (1.4-4.0); Lymphocytes % 15.9 % (21.3-54.2); Mean Corpuscular HGB Conc 32.6 GM/DL (32-36); Mean Corpuscular Hemoglobin 29 PG (27-34); Mean Corpuscular Volume 89.1 FL (87-102); Mean Platelet Volume 10.9 FL (9.6-12.0); Monocytes # 0.7 10*3/uL (0.11-0.8); Monocytes % 10.9 % (1.7-12.7); Neutrophils # 4.5 10*3/uL (1.4-7.4); Neutrophils % 68.5 % (38.7-73.9); Platelet Count 186 T/CUMM (130-400); Red Blood Count 3.68 MC/CUMM (3.8-5.5); White Blood Count 6.6 T/CUMM (4-12)
[2016-08-13 03:31] LABS: ABG Base Excess 7.1 MMOL/L (-2.5-2.5); ABG HCO3 30.9 MMOL/L (20-26); ABG Oxygen Saturation 98.5 % (95-100); ABG PCO2 50.5 MM HG (35-48); ABG PH 7.421 (7.35-7.45); ABG TCO2 29.5 MMOL/L (23-27); Allen Test Positive; Pt O2 Delivery Device Ventilator
[2016-08-13 03:41] LABS: Calcium 8.7 MG/DL (8.5-10.1); Magnesium 2.8 MG/DL (1.8-2.4); Osmolality,Calculated 291.7 MOS/KG (273-304); Potassium 3.9 MMOL/L (3.5-5.1)
[2016-08-13 04:12] LABS: Magnesium 2.9 MG/DL (1.8-2.4); Phosphorous 3.2 MG/DL (2.5-4.9); Prealbumin 20.9 MG/DL (20-40)
--- NOTE | 2016-08-13 05:59 | XRay Report ---
XR chest 1V portable Indication: Intubation. Comparison: Chest x-ray 08/11/2016 Technique: Portable AP chest was performed. Findings: Interstitial and airspace opacities within the left lung base have changed little since comparison study. Multiple tubes and medical support devices appear stable. Chest otherwise demonstrates little change Impression: 1. Little change in the chest. 08/13/2016 5:56 AM PROCEDURE INTERPRETED AT [facility] DEPARTMENT OF RADIOLOGY Final Report Signed by: Dr. Bill Santoyo
[2016-08-13] MEDS: ENOXAPARIN 40 MG/0.4 ML SYRINGE SUBCUT SCH (06:23)
[2016-08-13] MEDS: INSULIN REGULAR 100 UNIT/ML SUBCUT SCH ×3 (06:23→18:28)
--- NOTE | 2016-08-13 07:30 | Pulmonology Progress Note ---
Pulmonary - PN: Subj Interval history: Patient is an 89-year-old black lady that came in with acute respiratory failure. She was felt to have acute pulmonary edema and has a cardiomyopathy. She may have had a small NC. She has been on the ventilator all weekend and has done CPAP fairly well off and on. Other times she gets very restless. She has not been very alert and has a history of dementia. She has done fairly well with CPAP yesterday but does get plugged up easily. She still has a PCO2 of 50. Will add some steroids and do a therapeutic bronchoscopy. Hopefully she will be ready to extubate soon. Exam (Progress Note) - Constitutional Vitals: Period Temp Pulse Resp BP Sys/Cruz Pulse Ox Last 24 Hr 97.7 F-98.6 F 84-105 12-38 86-122/42-64 98-100 Exam: General appearance: no acute distress (Patient is comfortable on the ventilator but does not arouse very well. She still is not very alert.), under weight - Head Head exam: Present: normal inspection, normocephalic - Eye Eye exam: Present: EOMI. Absent: scleral icterus Pupils: Present: TACHO - ENT ENT exam: Present: other (ET tube is in good position) - Neck Neck exam: Absent: lymphadenopathy - Respiratory Respiratory exam: Present: Lungs have good breath sounds bilaterally and her lungs are fairly clear without much wheezing. - Cardiovascular Cardiovascular exam: Present: regular rate and rhythm. Her heart rate is under good control. Absent: gallop, systolic murmur - GI/Abdominal GI/Abdominal exam: Present: normal bowel sounds, soft. Absent: organomegaly, tenderness - Extremities Exam Extremities exam: Present: other (Her extremities are rather thin.). Absent: calf tenderness, edema - Neurological Exam Neurological exam: Present: other (She is still poorly responsive.) - Psychiatric Psychiatric exam: Absent: anxious - Skin Skin exam: Present: warm, dry Results - Labs CBC & BMP: 08/13/16 02:46 08/13/16 02:46 Labs: Her PO2 is 116 with a PCO2 of 50 and a pH of 7.42 - Diagnostic Findings Procedure: Chest x-ray: image reviewed by me, report reviewed by me (Chest x- ray shows minimal atelectasis in the left base.) Assessment and Plan (1) Pulmonary edema Status: Acute Assessment and plan: The patient came in with pulmonary edema and has improved. Her x-ray is better and her oxygenation is stable. Her CHF looks much better now. Current Visit: Yes Qualifiers: Chronicity: acute Qualified Code(s): J81.0 - Acute pulmonary edema (2) Acute respiratory failure Status: Acute Assessment and plan: The patient presented with respiratory failure and is now stable on the ventilator. Her oxygenation has improved. Chest x-ray is much better and she is doing CPAP at times. She does have some thick secretions and plugs up at times. Will plan a therapeutic bronchoscopy and add some steroids and hopefully can extubate soon Current Visit: Yes Qualifiers: Respiratory failure complication: hypoxia and hypercapnia Qualified Code(s) : J96.01 - Acute respiratory failure with hypoxia; J96.02 - Acute respiratory failure with hypercapnia (3) Hyperglycemia Status: Acute Assessment and plan: Her glucose is around 137 now. Current Visit: Yes
--- NOTE | 2016-08-13 07:48 | Cardiology Progress Note ---
Assessment and Plan - Time spent with patient Time spent with patient: Greater than 30 minutes (1) Elevated troponin Status: Acute Assessment and plan: SEE PLAN OF CARE LISTED BELOW Current Visit: Yes (2) LBBB (left bundle branch block) Status: Chronic Assessment and plan: SEE PLAN OF CARE LISTED BELOW Current Visit: Yes (3) Advanced age Status: Chronic Assessment and plan: SEE PLAN OF CARE LISTED BELOW Current Visit: Yes (4) Tachyarrhythmia Status: Resolved Assessment and plan: SEE PLAN OF CARE LISTED BELOW Current Visit: Yes (5) Pulmonary edema Status: Acute Assessment and plan: SEE PLAN OF CARE LISTED BELOW Current Visit: Yes Qualifiers: Chronicity: acute Qualified Code(s): J81.0 - Acute pulmonary edema (6) Acute respiratory failure Status: Acute Assessment and plan: SEE PLAN OF CARE LISTED BELOW Current Visit: Yes Qualifiers: Respiratory failure complication: hypoxia and hypercapnia Qualified Code(s) : J96.01 - Acute respiratory failure with hypoxia; J96.02 - Acute respiratory failure with hypercapnia (7) Respiratory acidosis Status: Resolved Assessment and plan: SEE PLAN OF CARE LISTED BELOW Current Visit: Yes (8) Elevated lactic acid level Status: Resolved Assessment and plan: SEE PLAN OF CARE LISTED BELOW Current Visit: Yes (9) Cardiomyopathy Status: Acute Assessment and plan: SEE PLAN OF CARE LISTED BELOW Current Visit: Yes Qualifiers: Cardiomyopathy type: unspecified Qualified Code(s): I42.9 - Cardiomyopathy , unspecified (10) Mitral regurgitation Status: Acute Assessment and plan: SEE PLAN OF CARE LISTED BELOW Current Visit: Yes (11) Pulmonary hypertension Status: Acute Assessment and plan: SEE PLAN OF CARE LISTED BELOW Current Visit: Yes Cardiology - PN: Subj Interval history: PSYCHIATRIC NP: (NEW) DR. FELTON SUMMARY: Ms. Daugherty, 89BF, without a prior history of cardiac disease. According to family, she lived independently taking care of her ADLs without difficulty. Patient was admitted August 07, 2016 with acute shortness of breath requiring intubation in the emergency department. She was found to be hypotensive and in in SVT. She was treated with IV Amiodarone. She has been diagnosed with newly discovered cardiomyopathy, EF 20%, moderate to severe MR, severe TR, PAP 70-75 mmHg. Troponins have remained slightly elevated but flat ( 0.211-0.360). 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 AUGUST 10, 2016: Overnight, pressors have been weaned off and blood pressure stable. Remains on the ventilator but is doing prolonged CPAP trials. She has been off Diprovan for 48 hours with little response. She does have a history of dementia but, as I understand, she was living independently taking care of her ADLs prior to this event. Over the weekend she has diuresed relatively well. There is a question as to whether she had pneumonia however, it is believed that this is a chronic interstitial scarring and not an active pneumonia on admission. IV Amiodarone was changed to oral amiodarone over the weekend. Chronic left bundle branch block. No arrhythmia over the weekend. Diamox added for metabolic alkalosis. At some point, patient may benefit from heart catheterization once her comorbidities stabilize. I will further discuss with Dr. Hernadez and await additional recommendations. AUGUST 12, 2016: Overnight, no significant change in Ms. Daugherty' condition. She is off pressors but blood pressure will not allow for introduction of an STANLEY inhibitor or beta-faustino at this point. Continues to take aspirin, lipid- lowering agent. No arrhythmia overnight. Continue p.o. Amiodarone. If no recurrence of tachycardia, may not lead long-term. It appears that she has diuresed a total of 4 1/2 - [address] of head this morning revealed no acute abnormality. Lasix was decreased to 40 mg IV daily. Should patient's comorbidities improve, and family wishes to pursue, cardiac workup will need to include right/left heart catheterization. For now, continue supportive medical management. Will further discuss with Dr. Hernadez and await additional recommendations. AUGUST 13, 2016: No significant change overnight. She remains off pressors. Lasix has been decreased to once daily. No arrhythmia noted overnight. She remains on Amiodarone 200 mg orally twice daily. Blood pressure and allow for introduction of an STANLEY inhibitor or beta-faustino. Labs are stable this morning. She continues with respiratory trials. I will further discuss with Dr. Hernadez and await additional recommendations. ASSESSMENT/PLAN: 1. ACUTE RESPIRATORY FAILURE - now intubated, CPAP trials. Her mental status will play a major factor of when/if to extubate. 2. ACUTE CHF - secondary to systolic dysfunction (EF 20%) and diastolic dysfunction, NYHA Class III-IV. Patient has diuresed well and this has compensated.. Lasix IV daily. No daily weight this morning recorded. 4. MITRAL REGURGITATION, MODERATE TO SEVERE - continue afterload reduction when able. 5. ELEVATED TROPONIN - flat throughout hospitalization. Suspicious for demand ischemia. Unable to tolerate betablocker or STANLEY, nitrates. Continue ASA , lipid lowering agent. 6. PULMONARY HYPERTENSION, SEVERE - continue current plan of care 7. LBBB, CHRONIC - continue current plan of care. No other arrhythmia noted overnight 8. TACHYARRYTHMIA - no arrhythmia overnight. Amiodarone 200 mg twice daily. May decrease to once daily soon if no arrhythmia occurs. 9. METABOLIC ALKALOSIS - resolved. 10. CARDIOMYOPATHY - suspected to be ischemic. Afterload reduction when blood pressure will allow. 11. DEMENTIA - continue current plan of care. Exam (Progress Note) - Constitutional Vitals: Period Temp Pulse Resp BP Sys/Cruz Pulse Ox Last 24 Hr 97.7 F-98.6 F 84-105 12-38 86-122/42-64 98-100 Exam: General: [Thin female. Appears comfortable. Intubated no sedation. ] HEENT: [Normocephalic, atraumatic. Mucous membranes moist. No jaundice noted. Conjunctiva moist and clear, sclerae anicteric] Neck: No JVD/HJR, no thyromegaly or lymphadenopathy noted. No carotid bruit appreciated Cardiac: [Regular rate and rhythm.] [III/ HSM heard best at 5 ICS left. Lungs: [Course sounds without active wheezing. Symmetrical chest wall movements noted. Remains intubated. Abdomen: Soft, bowel sounds normoactive. Nontender and nondistended. No abdominal bruit or thrill noted. No masses noted. Musculoskeletal: No fluid collection. Decreased range of motion is noted. Extremities: No clubbing, cyanosis noted. [ No edema noted.] Upper extremity pulses 2+. Lower extremity pulses 1+. Capillary refill less than 3 seconds. Skin: No unusual lesions or rashes. No skin breakdown appreciated. Neuro: Does not follow commands. No essential tremor is appreciated. Result/EKG - Labs CBC & BMP: 08/13/16 02:46 08/13/16 02:46 Lab Results: I have reviewed the past 24 hour labs Labs: Laboratory Results - last 24 hr 07/05/17 07/05/17 07/05/17 11:26 17:27 23:25 WBC RBC Hgb Hct MCV MCH MCHC RDW Plt Count MPV Neut % (Auto) Lymph % (Auto) [place] % (Auto) Eos % (Auto) Baso % (Auto) Neut # (Auto) Lymph # (Auto) [place] # (Auto) Eos # (Auto) Baso # (Auto) Immature Gran % Nucleated RBC % Immature Gran # Nucleated RBCs # ABG pH ABG pCO2 ABG pO2 ABG HCO3 ABG Total CO2 ABG O2 Saturation ABG Base Excess FiO2 Sodium Potassium Chloride Carbon Dioxide Anion Gap BUN Creatinine GFR Calculation BUN/Creatinine Ratio Glucose POC Glucose 143 H 177 H 155 H Calculated Osmolality Calcium Phosphorus Magnesium Prealbumin 08/13/16 08/13/16 08/13/16 02:46 02:46 02:46 WBC 6.6 RBC 3.68 L Hgb 10.7 L Hct 32.8 L MCV 89.1 MCH 29 MCHC 32.6 RDW 14.0 Plt Count 186 MPV 10.9 Neut % (Auto) 68.5 Lymph % (Auto) 15.9 L [place] % (Auto) 10.9 Eos % (Auto) 4.2 Baso % (Auto) 0.2 Neut # (Auto) 4.5 Lymph # (Auto) 1.1 L [place] # (Auto) 0.7 Eos # (Auto) 0.3 Baso # (Auto) 0.0 Immature Gran % 0.3 Nucleated RBC % 0.0 Immature Gran # 0.02 Nucleated RBCs # 0.00 ABG pH ABG pCO2 ABG pO2 ABG HCO3 ABG Total CO2 ABG O2 Saturation ABG Base Excess FiO2 Sodium 138 Potassium 3.9 Chloride 96 L Carbon Dioxide 34 H Anion Gap 11.9 BUN 54 H Creatinine 1.10 H GFR Calculation 44 BUN/Creatinine Ratio 49.00 H Glucose 137 H POC Glucose Calculated Osmolality 291.7 Calcium 8.7 Phosphorus 3.2 Magnesium 2.9 H 2.8 H Prealbumin 20.9 08/13/16 08/13/16 03:30 05:48 WBC RBC Hgb Hct MCV MCH MCHC RDW Plt Count MPV Neut % (Auto) Lymph % (Auto) [place] % (Auto) Eos % (Auto) Baso % (Auto) Neut # (Auto) Lymph # (Auto) [place] # (Auto) Eos # (Auto) Baso # (Auto) Immature Gran % Nucleated RBC % Immature Gran # Nucleated RBCs # ABG pH 7.421 ABG pCO2 50.5 H ABG pO2 116.0 H ABG HCO3 30.9 H ABG Total CO2 29.5 H ABG O2 Saturation 98.5 ABG Base Excess 7.1 H FiO2 30.00 Sodium Potassium Chloride Carbon Dioxide Anion Gap BUN Creatinine GFR Calculation BUN/Creatinine Ratio Glucose POC Glucose 162 H Calculated Osmolality Calcium Phosphorus Magnesium Prealbumin - Diagnostic Findings Procedure: Chest x-ray: report reviewed by me - EKG EKG results: interpreted by me EKG shows: sinus rhythm
--- NOTE | 2016-08-13 07:56 | Operative Note ---
Date of procedure: 08/13/16 Pre-op diagnosis: Respiratory failure Post-op diagnosis: other (Bronchitis with mild mucous plugging) Procedure: The patient is an elderly lady who has been on the ventilator. The nurses report some mucus plugging and thick secretions. She has some mild CO2 retention on CPAP. A therapeutic bronchoscopy will be done to clear airways. She is sedated on the ventilator in the ICU. Procedure: The fiberoptic bronchoscope was passed to the ET tube into the airways. The bronchopulmonary segments were identified but no specimens were obtained. Findings: The ET tube is in good position in the trachea. The main bronchi are open. The bronchopulmonary segments were identified. The right upper lobe, right lower lobe, and right middle lobe are all open. The left upper lobe, lingula, and left lower lobe are open. There is some bronchitis present and only small amount of mucus plugging. This was washed and cleared. She did cough some but tolerated it well. The airways look a little better than expected. Impression: Respiratory failure with bronchitis and mild mucous plugging. Plan: We will add steroids and continue weaning . Anesthesia: conscious sedation Surgeon / Physician: Gallito Devries Estimated blood loss: none Specimens: none sent Condition: stable Disposition: ICU Results - Labs CBC & BMP: 08/13/16 02:46 08/13/16 02:46 Discharge Plan - Discharge Medications No Action Aspirin [Ecotrin] 81 mg PO DAILY - Follow Up or Referral - Forms/Instructions
[2016-08-13] MEDS: ASPIRIN 325 MG TABLET PO SCH (08:40)
[2016-08-13] MEDS: AMIODARONE 200 MG TABLET PO SCH ×2 (08:40→21:22)
[2016-08-13] MEDS: methylPREDNISolone SOD SUC 40 MG/1 ML VIAL IV SCH ×2 (08:41→16:35)
[2016-08-13] MEDS: PANTOPRAZOLE 40 MG VIAL IV SCH (08:50)
[2016-08-13] MEDS: DESITIN 4OZ/NYSTATIN 15 GRAM MIXTURE PASTE TOP SCH ×2 (09:34→21:22)
[2016-08-13] MEDS ORDERED: FUROSEMIDE 40 MG/4 ML VIAL IV SCH (09:56)
[2016-08-13] MEDS ORDERED: FUROSEMIDE 20 MG/2 ML VIAL IV SCH (10:00)
[2016-08-13] MEDS: MULTIVITAMIN LIQUID (CENTRUM) 60 ML BOTTLE PO SCH (11:24)
--- NOTE | 2016-08-13 18:12 | Hospitalist Progress Note ---
Assessment and Plan - Time spent with patient Time spent with patient: Greater than 30 minutes (1) acute non-ST elevation myocardial infarction) (1) Acute non-ST elevation myocardial infarction (NSTEMI) Status: Acute Current Visit: Yes (2) Acute respiratory failure Status: Acute Current Visit: Yes (3) Supraventricular tachycardia Problem details: Now controlled Status: Acute Current Visit: Yes (4) CAP (community acquired pneumonia) Status: Acute Current Visit: Yes (5) Abnormal EKG Problem details: Left bundle branch block noted on initial EKG obtained in ED immediately prior to this hospitalization. Status: Chronic Current Visit: Yes (6) Dementia Problem details: Specific cognitive defects not documented. Status: Chronic Current Visit: Yes Hospitalist: Subjective Interval history: Patient is an 89-year-old black female admitted for management of acute and chronic shortness of breath. Exam - Constitutional Vitals: Period Temp Pulse Resp BP Sys/Cruz Pulse Ox Last 24 Hr 97.3 F-98.2 F 79-94 12-36 86-124/42-65 98-100 General appearance: normal weight - Head Head exam: Present: normal inspection. Absent: other - Eye Eye exam: Present: EOMI - ENT ENT exam: Present: normal exam - Neck Neck exam: Present: normal inspection. Absent: meningismus - Respiratory Respiratory exam: Present: clear to auscultation bilaterally, decreased breath sounds. Absent: rales, rhonchi, wheezes - Cardiovascular Cardiovascular exam: Present: regular rate and rhythm - GI/Abdominal GI/Abdominal exam: Present: hypoactive bowel sounds, soft. Absent: guarding, mass, rebound - Extremities Exam Extremities exam: Present: normal inspection - Neurological Exam Neurological exam: Present: other (Somnolent; not responsive to verbal or light tactile stimulus) Results - Labs CBC & BMP: 08/13/16 02:46 08/13/16 02:46
[2016-08-13] MEDS: CARVEDILOL 3.125 MG TABLET PO SCH (21:21)
[2016-08-13] MEDS: ATORVASTATIN 20 MG TABLET PO SCH (21:22)
[2016-08-14] MEDS: methylPREDNISolone SOD SUC 40 MG/1 ML VIAL IV SCH ×3 (00:10→15:41)
[2016-08-14] MEDS: INSULIN REGULAR 100 UNIT/ML SUBCUT SCH ×4 (00:10→18:52)
[2016-08-14 03:26] LABS: ABG Base Excess 8.5 MMOL/L (-2.5-2.5); ABG Oxygen Saturation 97.3 % (95-100); ABG PCO2 51.7 MM HG (35-48); ABG PH 7.436 (7.35-7.45); ABG PO2 96.1 MM HG (80-95); ABG TCO2 35.6 MMOL/L (23-27)
[2016-08-14 03:36] LABS: Hematocrit 32.3 VOL% (35.7-47.0); Hemoglobin 10.6 GM/DL (12.0-16.0); Immature Granulocytes % 0.4 %; Immature Granulocytes Absolute 0.02 #; Lymphocytes # 0.4 10*3/uL (1.4-4.0); Lymphocytes % 7.3 % (21.3-54.2); Mean Corpuscular HGB Conc 32.8 GM/DL (32-36); Mean Corpuscular Hemoglobin 29 PG (27-34); Mean Corpuscular Volume 88.3 FL (87-102); Mean Platelet Volume 11.4 FL (9.6-12.0); Monocytes # 0.1 10*3/uL (0.11-0.8); Monocytes % 1.2 % (1.7-12.7); Neutrophils # 5.1 10*3/uL (1.4-7.4); Neutrophils % 91.1 % (38.7-73.9); Platelet Count 201 T/CUMM (130-400); Red Blood Count 3.66 MC/CUMM (3.8-5.5); Red Cell Distribution Width 13.6 % (9.3-17.3); White Blood Count 5.6 T/CUMM (4-12)
[2016-08-14 03:54] LABS: Calcium 8.7 MG/DL (8.5-10.1); Magnesium 3.2 MG/DL (1.8-2.4); Osmolality,Calculated 300.7 MOS/KG (273-304); Potassium 4.2 MMOL/L (3.5-5.1)
[2016-08-14 04:06] LABS: Lymphocytes 8 % (20-55); Platelet Estimate Normal; Segmented Neutrophils 92 % (50-85); Total Cells Counted 100
[2016-08-14] MEDS: ENOXAPARIN 40 MG/0.4 ML SYRINGE SUBCUT SCH (05:21)
--- NOTE | 2016-08-14 06:43 | XRay Report ---
XR chest 1V portable Indication: Shortness of breath Comparison: Chest x-ray 08/13/2016 Technique: Portable AP chest was performed. Findings: Multiple tubes and medical support devices appear stable. Airspace opacities left lung base have changed little since comparison study. Chest is otherwise stable. Impression: 1. No adverse interval change in the chest. 08/14/2016 6:39 AM PROCEDURE INTERPRETED AT [facility] DEPARTMENT OF RADIOLOGY Final Report Signed by: Dr. Bill Santoyo
--- NOTE | 2016-08-14 07:44 | Pulmonology Progress Note ---
Pulmonary - PN: Subj Interval history: Patient is an 89-year-old black lady that came in with acute respiratory failure. She was felt to have acute pulmonary edema and has a cardiomyopathy. She may have had a small LA. She has been on the ventilator all weekend and has done CPAP fairly well off and on. Other times she gets very restless. She has not been very alert and has a history of dementia. Yesterday she did quite well on CPAP. A therapeutic bronchoscopy was done yesterday and her airways looked fairly clear. Her chest x-ray looks okay today. We will try her off the ventilator today. Exam (Progress Note) - Constitutional Vitals: Period Temp Pulse Resp BP Sys/Cruz Pulse Ox Last 24 Hr 97.4 F-98.6 F 58-94 12-28 88-124/43-65 98-100 Exam: General appearance: no acute distress (Patient is more awake today and looks comfortable on CPAP. ) - Head Head exam: Present: normal inspection, normocephalic - Eye Eye exam: Present: EOMI. Absent: scleral icterus Pupils: Present: TACHO - ENT ENT exam: Present: other (ET tube is in good position) - Neck Neck exam: Absent: lymphadenopathy - Respiratory Respiratory exam: Present: Lungs have good breath sounds bilaterally she is moving air well without any wheezing. - Cardiovascular Cardiovascular exam: Present: regular rate and rhythm. Her heart rate is under good control. Absent: gallop, systolic murmur - GI/Abdominal GI/Abdominal exam: Present: normal bowel sounds, soft. Absent: organomegaly, tenderness - Extremities Exam Extremities exam: Present: other (Her extremities are rather thin.). Absent: calf tenderness, edema - Neurological Exam Neurological exam: Present: other (She is more alert now.) - Psychiatric Psychiatric exam: Absent: anxious - Skin Skin exam: Present: warm, dry Results - Labs CBC & BMP: 08/14/16 03:30 08/14/16 03:10 Labs: Her PO2 is 96 with a PCO2 of 51 and pH of 7.43 - Diagnostic Findings Procedure: Chest x-ray: image reviewed by me, report reviewed by me (Chest x- ray looks fairly clear today.) Assessment and Plan (1) Pulmonary edema Status: Acute Assessment and plan: The patient came in with pulmonary edema and has improved. Her x-ray is better and her oxygenation is stable. Her CHF looks much better now. Her volume status looks reasonably stable now. Current Visit: Yes Qualifiers: Chronicity: acute Qualified Code(s): J81.0 - Acute pulmonary edema (2) Acute respiratory failure Status: Acute Assessment and plan: The patient presented with respiratory failure and is now stable on the ventilator. Her oxygenation has improved. Chest x-ray is much better and she is doing CPAP well. She does look a little more alert. We will try her off the ventilator today. Current Visit: Yes Qualifiers: Respiratory failure complication: hypoxia and hypercapnia Qualified Code(s) : J96.01 - Acute respiratory failure with hypoxia; J96.02 - Acute respiratory failure with hypercapnia (3) Hyperglycemia Status: Acute Assessment and plan: Her glucose is 226 this morning after getting some steroids. Current Visit: Yes
--- NOTE | 2016-08-14 08:52 | Cardiology Progress Note ---
Assessment and Plan - Time spent with patient Time spent with patient: Greater than 30 minutes (1) Elevated troponin Status: Resolved Assessment and plan: SEE PLAN OF CARE LISTED BELOW Current Visit: Yes (2) LBBB (left bundle branch block) Status: Chronic Assessment and plan: SEE PLAN OF CARE LISTED BELOW Current Visit: Yes (3) Advanced age Status: Chronic Assessment and plan: SEE PLAN OF CARE LISTED BELOW Current Visit: Yes (4) Tachyarrhythmia Status: Resolved Assessment and plan: SEE PLAN OF CARE LISTED BELOW Current Visit: Yes (5) Pulmonary edema Status: Acute Assessment and plan: SEE PLAN OF CARE LISTED BELOW Current Visit: Yes Qualifiers: Chronicity: acute Qualified Code(s): J81.0 - Acute pulmonary edema (6) Acute respiratory failure Status: Acute Assessment and plan: SEE PLAN OF CARE LISTED BELOW Current Visit: Yes Qualifiers: Respiratory failure complication: hypoxia and hypercapnia Qualified Code(s) : J96.01 - Acute respiratory failure with hypoxia; J96.02 - Acute respiratory failure with hypercapnia (7) Respiratory acidosis Status: Resolved Assessment and plan: SEE PLAN OF CARE LISTED BELOW Current Visit: Yes (8) Elevated lactic acid level Status: Resolved Assessment and plan: SEE PLAN OF CARE LISTED BELOW Current Visit: Yes (9) Cardiomyopathy Status: Acute Assessment and plan: SEE PLAN OF CARE LISTED BELOW Current Visit: Yes Qualifiers: Cardiomyopathy type: unspecified Qualified Code(s): I42.9 - Cardiomyopathy , unspecified (10) Mitral regurgitation Status: Acute Assessment and plan: SEE PLAN OF CARE LISTED BELOW Current Visit: Yes (11) Pulmonary hypertension Status: Acute Assessment and plan: SEE PLAN OF CARE LISTED BELOW Current Visit: Yes Cardiology - PN: Subj Interval history: DRYER FEEDER: (NEW) DR. FELTON SUMMARY: Ms. Daugherty, 89BF, without a prior history of cardiac disease. According to family, she lived independently taking care of her ADLs without difficulty. Patient was admitted August 07, 2016 with acute shortness of breath requiring intubation in the emergency department. She was found to be hypotensive and in in SVT. She was treated with IV Amiodarone. She has been diagnosed with newly discovered cardiomyopathy, EF 20%, moderate to severe MR, severe TR, PAP 70-75 mmHg. Troponins have remained slightly elevated but flat ( 0.211-0.360). 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 AUGUST 10, 2016: Overnight, pressors have been weaned off and blood pressure stable. Remains on the ventilator but is doing prolonged CPAP trials. She has been off Diprovan for 48 hours with little response. She does have a history of dementia but, as I understand, she was living independently taking care of her ADLs prior to this event. Over the weekend she has diuresed relatively well. There is a question as to whether she had pneumonia however, it is believed that this is a chronic interstitial scarring and not an active pneumonia on admission. IV Amiodarone was changed to oral amiodarone over the weekend. Chronic left bundle branch block. No arrhythmia over the weekend. Diamox added for metabolic alkalosis. At some point, patient may benefit from heart catheterization once her comorbidities stabilize. I will further discuss with Dr. Hernadez and await additional recommendations. AUGUST 12, 2016: Overnight, no significant change in Ms. Daugherty' condition. She is off pressors but blood pressure will not allow for introduction of an STANLEY inhibitor or beta-faustino at this point. Continues to take aspirin, lipid- lowering agent. No arrhythmia overnight. Continue p.o. Amiodarone. If no recurrence of tachycardia, may not lead long-term. It appears that she has diuresed a total of 4 1/2 - [address] of head this morning revealed no acute abnormality. Lasix was decreased to 40 mg IV daily. Should patient's comorbidities improve, and family wishes to pursue, cardiac workup will need to include right/left heart catheterization. For now, continue supportive medical management. Will further discuss with Dr. Hernadez and await additional recommendations. AUGUST 13, 2016: No significant change overnight. She remains off pressors. Lasix has been decreased to once daily. No arrhythmia noted overnight. She remains on Amiodarone 200 mg orally twice daily. Blood pressure and allow for introduction of an STANLEY inhibitor or beta-faustino. Labs are stable this morning. She continues with respiratory trials. I will further discuss with Dr. Hernadez and await additional recommendations. AUGUST 14, 2016: Yesterday, patient underwent therapeutic bronchoscopy. Early this morning, patient was extubated. She appears to be very comfortable, no tachypnea. Opens Her eyes to command and return to sleep quickly. Patient's weight is down a total of 6-1/2 kg since admission. Labs are stable as are vital signs. No arrhythmia noted. Will further discuss with Dr. Hernadez and await additional recommendations. Will transition IV Lasix to oral Lasix ASSESSMENT/PLAN: 1. ACUTE RESPIRATORY FAILURE - extubated this morning. Stable. 2. ACUTE CHF - secondary to systolic dysfunction (EF 20%) and diastolic dysfunction, NYHA Class III-IV. Patient has diuresed well and this has been well- compensated. Lasix IV daily, transitioning to oral. 4. MITRAL REGURGITATION, MODERATE TO SEVERE - continue afterload reduction when able. 5. ELEVATED TROPONIN - flat throughout hospitalization. Suspicious for demand ischemia. Unable to tolerate betablocker or STANLEY, nitrates. Continue ASA , lipid lowering agent. 6. PULMONARY HYPERTENSION, SEVERE - continue current plan of care 7. LBBB, CHRONIC - continue current plan of care. No other arrhythmia noted overnight 8. TACHYARRYTHMIA - no arrhythmia overnight. Amiodarone 200 mg twice daily. May decrease to once daily soon if no arrhythmia occurs. 9. METABOLIC ALKALOSIS - resolved. 10. CARDIOMYOPATHY - suspected to be ischemic. Afterload reduction when blood pressure will allow. 11. DEMENTIA - continue current plan of care. Exam (Progress Note) - Constitutional Vitals: Period Temp Pulse Resp BP Sys/Cruz Pulse Ox Last 24 Hr 97.4 F-98.6 F 58-92 12-28 88-119/43-62 98-100 Exam: General: [Thin female. Appears comfortable. Opens eyes and squeezes my hands appropriately. ] HEENT: [Normocephalic, atraumatic. Bilateral arcus noted. Mucous membranes moist. No jaundice noted. Conjunctiva moist and clear, sclerae anicteric] Neck: No JVD/HJR, no thyromegaly or lymphadenopathy noted. No carotid bruit appreciated Cardiac: [Regular rate and rhythm.] [III/ HSM heard best at 5 ICS left. Lungs: [Relatively clear. No wheezing. Symmetrical chest wall movements noted. Abdomen: Soft, bowel sounds normoactive, flat. Nontender and nondistended. No abdominal bruit or thrill noted. No masses noted. Musculoskeletal: No fluid collection. Decreased range of motion is noted. Extremities: No clubbing, cyanosis noted. [ No edema noted.] Upper extremity pulses 2+. Lower extremity pulses 1+. Capillary refill less than 3 seconds. Skin: No unusual lesions or rashes. No skin breakdown appreciated. Neuro: Does not follow commands. No essential tremor is appreciated. Result/EKG - Labs CBC & BMP: 08/14/16 03:30 08/14/16 03:10 Lab Results: I have reviewed the past 24 hour labs Labs: Laboratory Results - last 24 hr 08/13/16 08/13/16 08/13/16 11:36 16:43 19:37 WBC RBC Hgb Hct MCV MCH MCHC RDW Plt Count MPV Neut % (Auto) Lymph % (Auto) Patrick % (Auto) Eos % (Auto) Baso % (Auto) Neut # (Auto) Lymph # (Auto) Patrick # (Auto) Eos # (Auto) Baso # (Auto) Total Counted Immature Gran % Nucleated RBC % Immature Gran # Segmented Neutrophils Lymphocytes Nucleated RBCs # Platelet Estimate Pappenheimer Bodies ABG pH ABG pCO2 ABG pO2 ABG HCO3 ABG Total CO2 ABG O2 Saturation ABG Base Excess Sodium Potassium Chloride Carbon Dioxide Anion Gap BUN Creatinine GFR Calculation BUN/Creatinine Ratio Glucose POC Glucose 173 H 186 H 203 H Calculated Osmolality Calcium Magnesium 08/14/16 08/14/16 08/14/16 00:07 03:04 03:10 WBC RBC Hgb Hct MCV MCH MCHC RDW Plt Count MPV Neut % (Auto) Lymph % (Auto) Patrick % (Auto) Eos % (Auto) Baso % (Auto) Neut # (Auto) Lymph # (Auto) Patrick # (Auto) Eos # (Auto) Baso # (Auto) Total Counted Immature Gran % Nucleated RBC % Immature Gran # Segmented Neutrophils Lymphocytes Nucleated RBCs # Platelet Estimate Pappenheimer Bodies ABG pH 7.436 ABG pCO2 51.7 H ABG pO2 96.1 H ABG HCO3 34.0 H ABG Total CO2 35.6 H ABG O2 Saturation 97.3 ABG Base Excess 8.5 H Sodium 138 Potassium 4.2 Chloride 95 L Carbon Dioxide 34 H Anion Gap 13.2 BUN 71 H Creatinine 1.20 H GFR Calculation 40 BUN/Creatinine Ratio 59.00 H Glucose 194 H POC Glucose 231 H Calculated Osmolality 300.7 Calcium 8.7 Magnesium 3.2 H 08/14/16 08/14/16 03:30 05:17 WBC 5.6 RBC 3.66 L Hgb 10.6 L Hct 32.3 L MCV 88.3 MCH 29 MCHC 32.8 RDW 13.6 Plt Count 201 MPV 11.4 Neut % (Auto) 91.1 H Lymph % (Auto) 7.3 L Patrick % (Auto) 1.2 L Eos % (Auto) 0.0 Baso % (Auto) 0.0 Neut # (Auto) 5.1 Lymph # (Auto) 0.4 L Patrick # (Auto) 0.1 L Eos # (Auto) 0.0 Baso # (Auto) 0.0 Total Counted 100 Immature Gran % 0.4 Nucleated RBC % 0.0 Immature Gran # 0.02 Segmented Neutrophils 92 H Lymphocytes 8 L Nucleated RBCs # 0.00 Platelet Estimate Normal Pappenheimer Bodies Body Former ABG pH ABG pCO2 ABG pO2 ABG HCO3 ABG Total CO2 ABG O2 Saturation ABG Base Excess Sodium Potassium Chloride Carbon Dioxide Anion Gap BUN Creatinine GFR Calculation BUN/Creatinine Ratio Glucose POC Glucose 226 H Calculated Osmolality Calcium Magnesium - Diagnostic Findings Procedure: Chest x-ray: report reviewed by me - EKG EKG results: interpreted by me EKG shows: sinus rhythm
[2016-08-14] MEDS ORDERED: FUROSEMIDE 20 MG TABLET PO SCH (09:00)
[2016-08-14] MEDS: PANTOPRAZOLE 40 MG VIAL IV SCH (10:00)
[2016-08-14] MEDS: ASPIRIN 325 MG TABLET PO SCH (10:20)
[2016-08-14] MEDS: DESITIN 4OZ/NYSTATIN 15 GRAM MIXTURE PASTE TOP SCH ×2 (10:21→21:04)
[2016-08-14] MEDS: CARVEDILOL 3.125 MG TABLET PO SCH ×2 (10:21→21:05)
[2016-08-14] MEDS: MULTIVITAMIN LIQUID (CENTRUM) 60 ML BOTTLE PO SCH (10:21)
[2016-08-14] MEDS: AMIODARONE 200 MG TABLET PO SCH ×2 (11:39→11:40)
--- NOTE | 2016-08-14 12:37 | Hospitalist Progress Note ---
Assessment and Plan (1) Acute non-ST elevation myocardial infarction (NSTEMI) Status: Acute Current Visit: Yes (2) Acute respiratory failure Problem details: Patient completed therapeutic bronchoscopy yesterday. She was extubated this morning. Status: Acute Current Visit: Yes (3) Supraventricular tachycardia Problem details: Now controlled Status: Acute Current Visit: Yes (4) CAP (community acquired pneumonia) Status: Acute Current Visit: Yes (5) Abnormal EKG Problem details: Left bundle branch block noted on initial EKG obtained in ED immediately prior to this hospitalization. Status: Chronic Current Visit: Yes (6) Dementia Problem details: Specific cognitive defects not documented. Status: Chronic Current Visit: Yes (7) Dilated cardiomyopathy Problem details: 08/07/2016 echocardiogram: LVEF 20% with severe global hypokinesis and grade 2/4 diastolic dysfunction; pulmonary artery pressure 70- 75 mmHg Status: Acute Current Visit: Yes (8) Pulmonary hypertension Problem details: Moderate to severe; pulmonary artery pressure reported 70-75 mmHg on 08/07/2016 echocardiogram Status: Acute Current Visit: Yes (9) Elevated troponin level Problem details: Sustained low level elevation not consistent with acute coronary syndrome. Status: Acute Current Visit: Yes (10) Dyslipidemia Problem details: Receiving statin therapy. 08/06/2016 total cholesterol 151, LDL 96, HDL 43, triglycerides 64 Status: Acute Current Visit: Yes Hospitalist: Subjective Interval history: Patient was examined while ICU case management director was present at bedside. Patient is somnolent. She does not speak. She does not follow simple commands. Exam - Constitutional Vitals: Period Temp Pulse Resp BP Sys/Cruz Pulse Ox Last 24 Hr 97.8 F-98.6 F 58-92 12-28 88-119/43-62 98-100 General appearance: no acute distress, under weight - Head Head exam: Present: normal inspection, atraumatic, other (Extubated this morning ; right nostril NG in place) - Neck Neck exam: Present: normal inspection - Respiratory Respiratory exam: Present: clear to auscultation bilaterally. Absent: accessory muscle use, chest wall tenderness, decreased breath sounds, rales, wheezes - Cardiovascular Cardiovascular exam: Present: regular rate and rhythm - GI/Abdominal GI/Abdominal exam: Present: normal bowel sounds, soft. Absent: distended, tenderness, rebound - Extremities Exam Extremities exam: Present: normal inspection. Absent: calf tenderness, edema - Neurological Exam Neurological exam: Present: altered, other (No abnormal limb movement noted) - Psychiatric Psychiatric exam: Present: other (Unresponsive) - Skin Skin exam: Present: normal color, warm, dry. Absent: rash Results - Labs CBC & BMP: 08/14/16 03:30 08/14/16 03:10
[2016-08-14] MEDS: ATORVASTATIN 20 MG TABLET PO SCH (21:05)
[2016-08-15] MEDS: INSULIN REGULAR 100 UNIT/ML SUBCUT SCH ×4 (00:05→18:20)
[2016-08-15] MEDS: methylPREDNISolone SOD SUC 40 MG/1 ML VIAL IV SCH ×3 (00:38→16:25)
[2016-08-15 05:13] LABS: Hematocrit 30.3 VOL% (35.7-47.0); Hemoglobin 10.2 GM/DL (12.0-16.0); Immature Granulocytes % 0.3 %; Immature Granulocytes Absolute 0.03 #; Lymphocytes # 0.3 10*3/uL (1.4-4.0); Lymphocytes % 3.9 % (21.3-54.2); Mean Corpuscular HGB Conc 33.7 GM/DL (32-36); Mean Corpuscular Hemoglobin 30 PG (27-34); Mean Corpuscular Volume 87.6 FL (87-102); Mean Platelet Volume 11.7 FL (9.6-12.0); Monocytes # 0.2 10*3/uL (0.11-0.8); Monocytes % 2.2 % (1.7-12.7); Neutrophils # 8.2 10*3/uL (1.4-7.4); Neutrophils % 93.6 % (38.7-73.9); Platelet Count 223 T/CUMM (130-400); Red Blood Count 3.46 MC/CUMM (3.8-5.5); Red Cell Distribution Width 13.5 % (9.3-17.3); White Blood Count 8.8 T/CUMM (4-12)
[2016-08-15 05:45] LABS: Magnesium 3.2 MG/DL (1.8-2.4)
[2016-08-15] MEDS: ENOXAPARIN 40 MG/0.4 ML SYRINGE SUBCUT SCH (05:45)
[2016-08-15 05:46] LABS: Osmolality,Calculated 304.5 MOS/KG (273-304); Potassium 4.1 MMOL/L (3.5-5.1)
[2016-08-15 06:45] LABS: Lymphocytes 2 % (20-55); Segmented Neutrophils 97 % (50-85)
[2016-08-15 06:46] LABS: Total Cells Counted 100
[2016-08-15 06:47] LABS: Platelet Estimate Adequate
--- NOTE | 2016-08-15 07:26 | Pulmonology Progress Note ---
Pulmonary - PN: Subj Interval history: Patient sleeping this morning, no acute events over night per nursing. Patient extubated yesterday without difficulty Exam (Progress Note) - Constitutional Vitals: Period Temp Pulse Resp BP Sys/Cruz Pulse Ox Last 24 Hr 97 F-98.2 F 61-71 13-24 83-107/37-60 97-100 General appearance: no acute distress - Head Head exam: Present: normal inspection - Respiratory Respiratory exam: Absent: accessory muscle use, stridor, wheezes - Cardiovascular Cardiovascular exam: Present: regular rate and rhythm Results - Labs CBC & BMP: 08/15/16 04:13 08/15/16 05:10 Lab Results: I have reviewed the past 24 hour labs Assessment and Plan (1) Acute respiratory failure Status: Resolved Assessment and plan: Patient doing well s/p extubation. Labs are stable, no new imaging to review today. No other pulmonary recs at this time Current Visit: Yes Qualifiers: Respiratory failure complication: hypoxia and hypercapnia Qualified Code(s) : J96.01 - Acute respiratory failure with hypoxia; J96.02 - Acute respiratory failure with hypercapnia
--- NOTE | 2016-08-15 08:06 | Cardiology Progress Note ---
Assessment and Plan (1) Ischemic cardiomyopathy Status: Acute Assessment and plan: 89-year-old black female, admitted with respiratory insufficiency, CHF, hypertension. Newly diagnosed severe cardiomyopathy, ejection fraction 20%, moderate to severe mitral regurgitation, severe pulmonary hypertension. Initially on pressors, now weaned off. Advanced age, dementia, also had suspected SVT on admission. Regular LBBB tachycardia, no sudden A changes on available tracings. This is likely either sinus tachycardia or AT/AFL. Now, in sinus rhythm, sinus tachycardia. -Cardiomyopathy, CHF. Tolerating low-dose Crestor so far. We will add STANLEY, if blood pressure/renal Fx remains stable -Cont ASA, atorvastatin -Continue p.o. amiodarone. If no recurrence of tachycardia, we may not need this long-term -Hold Lasix. She is now getting dry. Likely will need some later, has severe cardiomyopathy, moderate to severe MR, severe pulmonary hypertension. -Elevated troponins. Trend was suggestive of demand ischemia so far. Given her dementia, unresponsiveness, I would defer invasive evaluation at this time. This may be reconsidered, if she improves. Current Visit: Yes (2) Acute respiratory failure Status: Resolved Current Visit: Yes Qualifiers: Respiratory failure complication: hypoxia and hypercapnia Qualified Code(s) : J96.01 - Acute respiratory failure with hypoxia; J96.02 - Acute respiratory failure with hypercapnia (3) CAP (community acquired pneumonia) Status: Acute Current Visit: Yes (4) LBBB (left bundle branch block) Status: Chronic Current Visit: Yes Cardiology - PN: Subj Interval history: She is unresponsive. Freddie, BUN/creatinine ratio increasing. Blood pressure, heart rate stable. Exam (Progress Note) - Constitutional Vitals: Period Temp Pulse Resp BP Sys/Cruz Pulse Ox Last 24 Hr 97.1 F-98.2 F 61-71 13-22 83-106/37-60 97-100 General appearance: no acute distress, under weight - Head Head exam: Present: normal inspection, normocephalic - Eye Eye exam: Absent: periorbital swelling, laceration to eyelids - ENT ENT exam: Present: normal external ear exam - Neck Neck exam: Present: normal inspection - Respiratory Respiratory exam: Present: clear to auscultation bilaterally. Absent: accessory muscle use - Cardiovascular Cardiovascular exam: Present: regular rate and rhythm, systolic murmur - GI/Abdominal GI/Abdominal exam: Present: normal bowel sounds. Absent: distended - Extremities Exam Extremities exam: Present: normal inspection, normal capillary refill. Absent: edema - Back Exam Back exam: Present: normal inspection - Neurological Exam Neurological exam: Present: alert, oriented X3 - Psychiatric Psychiatric exam: Present: normal affect, normal mood - Skin Skin exam: Present: normal color, warm. Absent: cyanosis Result/EKG - Labs CBC & BMP: 08/15/16 04:13 08/15/16 05:10 Lab Results: I have reviewed the past 24 hour labs Labs: Laboratory Results - last 24 hr 08/14/16 08/14/16 08/14/16 11:35 17:31 23:32 WBC RBC Hgb Hct MCV MCH MCHC RDW Plt Count MPV Neut % (Auto) Lymph % (Auto) Pepin % (Auto) Eos % (Auto) Baso % (Auto) Neut # (Auto) Lymph # (Auto) Pepin # (Auto) Eos # (Auto) Baso # (Auto) Total Counted Immature Gran % Nucleated RBC % Immature Gran # Segmented Neutrophils Lymphocytes Monocytes Nucleated RBCs # Platelet Estimate Sodium Potassium Chloride Carbon Dioxide Anion Gap BUN Creatinine GFR Calculation BUN/Creatinine Ratio Glucose POC Glucose 152 H 198 H 202 H Calculated Osmolality Calcium Magnesium 08/15/16 08/15/16 08/15/16 04:13 05:10 05:40 WBC 8.8 D RBC 3.46 L Hgb 10.2 L Hct 30.3 L MCV 87.6 MCH 30 MCHC 33.7 RDW 13.5 Plt Count 223 MPV 11.7 Neut % (Auto) 93.6 H Lymph % (Auto) 3.9 L Pepin % (Auto) 2.2 Eos % (Auto) 0.0 Baso % (Auto) 0.0 Neut # (Auto) 8.2 H Lymph # (Auto) 0.3 L Pepin # (Auto) 0.2 Eos # (Auto) 0.0 Baso # (Auto) 0.0 Total Counted 100 Immature Gran % 0.3 Nucleated RBC % 0.0 Immature Gran # 0.03 Segmented Neutrophils 97 H Lymphocytes 2 L Monocytes 1 L Nucleated RBCs # 0.00 Platelet Estimate Adequate Sodium 139 Potassium 4.1 Chloride 97 L Carbon Dioxide 35 H Anion Gap 11.1 BUN 77 H Creatinine 1.20 H GFR Calculation 39 BUN/Creatinine Ratio 64.00 H Glucose 180 H POC Glucose 191 H Calculated Osmolality 304.5 H Calcium 9.0 Magnesium 3.2 H - EKG EKG results: interpreted by me
[2016-08-15] MEDS: PANTOPRAZOLE 40 MG VIAL IV SCH ×2 (09:50→10:02)
[2016-08-15] MEDS: MULTIVITAMIN LIQUID (CENTRUM) 60 ML BOTTLE PO SCH (09:51)
[2016-08-15] MEDS: AMIODARONE 200 MG TABLET PO SCH (09:51)
[2016-08-15] MEDS: ASPIRIN 325 MG TABLET PO SCH (09:51)
[2016-08-15] MEDS: CARVEDILOL 3.125 MG TABLET PO SCH ×2 (09:52→21:08)
[2016-08-15] MEDS: DESITIN 4OZ/NYSTATIN 15 GRAM MIXTURE PASTE TOP SCH ×2 (09:52→21:09)
--- NOTE | 2016-08-15 11:45 | Hospitalist Progress Note ---
Assessment and Plan (1) Acute non-ST elevation myocardial infarction (NSTEMI) Status: Acute Current Visit: Yes (2) Acute respiratory failure Problem details: Patient completed therapeutic bronchoscopy 08/13/2016. She was extubated 08/14/2016. She passed a bedside swallow eval and should begin full liquid diet today. Patient had hypercapnic and hypoxemic acute on chronic respiratory failure. Status: Acute Current Visit: Yes (3) Supraventricular tachycardia Problem details: Now controlled Status: Acute Current Visit: Yes (4) CAP (community acquired pneumonia) Problem details: Antibiotic course already completed Status: Acute Current Visit: Yes (5) Abnormal EKG Problem details: Left bundle branch block noted on initial EKG obtained in ED immediately prior to this hospitalization. Status: Chronic Current Visit: Yes (6) Dementia Problem details: Specific cognitive defects not documented. For the first time patient is able to communicate verbally today. Status: Chronic Current Visit : Yes (7) Dilated cardiomyopathy Problem details: 08/07/2016 echocardiogram: LVEF 20% with severe global hypokinesis and grade 2/4 diastolic dysfunction; pulmonary artery pressure 70- 75 mmHg Status: Acute Current Visit: Yes (8) Pulmonary hypertension Problem details: Moderate to severe; pulmonary artery pressure reported 70-75 mmHg on 08/07/2016 echocardiogram Status: Acute Current Visit: Yes (9) Elevated troponin level Problem details: Sustained low level elevation not consistent with acute coronary syndrome. Status: Acute Current Visit: Yes (10) Dyslipidemia Problem details: Receiving and tolerating Lipitor 20 mg p.o. every evening therapy. 08/06/2016 fasting lipid panel: Total cholesterol 151, LDL 96, HDL 43, triglycerides 64 Status: Acute Current Visit: Yes (11) Debility Problem details: General debility, deconditioning, myopathy of disuse. I recommend swing bed rehab. Hospital immigration case worker has communicated with patient' s daughter who functions as surrogate medical decision maker. Patient can be transferred from intensive care unit today she continues to improve and should be medically stable for hospital discharge within the next few days. Status: Acute Current Visit: Yes Hospitalist: Subjective Interval history: Patient is more alert today. She is able to speak in short sentences. She responds well to simple commands. Exam - Constitutional Vitals: Period Temp Pulse Resp BP Sys/Cruz Pulse Ox Last 24 Hr 97.1 F-98.2 F 61-68 13-23 91-106/37-64 97-100 General appearance: no acute distress, under weight - Head Head exam: Present: normal inspection - ENT ENT exam: Present: other (Right nostril NG in place) - Respiratory Respiratory exam: Present: clear to auscultation bilaterally. Absent: accessory muscle use, rales - Cardiovascular Cardiovascular exam: Present: regular rate and rhythm - GI/Abdominal GI/Abdominal exam: Present: normal bowel sounds, soft. Absent: tenderness, rebound - Extremities Exam Extremities exam: Absent: edema - Neurological Exam Neurological exam: Present: alert, other (No abnormal motor activity) - Skin Skin exam: Present: normal color, warm, dry. Absent: petechiae, rash Results - Labs CBC & BMP: 08/15/16 04:13 08/15/16 05:10
[2016-08-15] MEDS: ATORVASTATIN 20 MG TABLET PO SCH (21:08)
[2016-08-16 04:37] LABS: Hematocrit 29.3 VOL% (35.7-47.0); Hemoglobin 9.7 GM/DL (12.0-16.0); Immature Granulocytes % 0.5 %; Immature Granulocytes Absolute 0.04 #; Lymphocytes # 0.4 10*3/uL (1.4-4.0); Lymphocytes % 5.1 % (21.3-54.2); Mean Corpuscular HGB Conc 33.1 GM/DL (32-36); Mean Corpuscular Hemoglobin 29 PG (27-34); Mean Corpuscular Volume 87.5 FL (87-102); Mean Platelet Volume 11.4 FL (9.6-12.0); Monocytes # 0.3 10*3/uL (0.11-0.8); Monocytes % 3.3 % (1.7-12.7); Neutrophils % 91.1 % (38.7-73.9); Platelet Count 236 T/CUMM (130-400); Red Blood Count 3.35 MC/CUMM (3.8-5.5); Red Cell Distribution Width 13.3 % (9.3-17.3); White Blood Count 7.7 T/CUMM (4-12)
[2016-08-16 05:04] LABS: Magnesium 3.2 MG/DL (1.8-2.4)
[2016-08-16 05:05] LABS: Osmolality,Calculated 300.3 MOS/KG (273-304); Potassium 4.1 MMOL/L (3.5-5.1)
[2016-08-16 06:37] LABS: Band Neutrophils 2 % (0-10); Lymphocytes 10 % (20-55); Platelet Estimate Normal; Segmented Neutrophils 86 % (50-85); Total Cells Counted 100
[2016-08-16] MEDS: MULTIVITAMIN LIQUID (CENTRUM) 60 ML BOTTLE PO SCH ×4 (09:00→12:21)
[2016-08-16] MEDS: ASPIRIN 325 MG TABLET PO SCH (09:12)
[2016-08-16] MEDS: ENOXAPARIN 40 MG/0.4 ML SYRINGE SUBCUT SCH (09:12)
[2016-08-16] MEDS: CARVEDILOL 3.125 MG TABLET PO SCH ×2 (09:12→21:53)
[2016-08-16] MEDS: AMIODARONE 200 MG TABLET PO SCH (09:12)
[2016-08-16] MEDS: PANTOPRAZOLE 40 MG VIAL IV SCH (09:12)
--- NOTE | 2016-08-16 11:36 | Cardiology Progress Note ---
Assessment and Plan (1) Ischemic cardiomyopathy Status: Acute Assessment and plan: 89-year-old black female, admitted with respiratory insufficiency, CHF, hypertension. Newly diagnosed severe cardiomyopathy, ejection fraction 20%, moderate to severe mitral regurgitation, severe pulmonary hypertension. Initially on pressors, now weaned off. Advanced age, dementia, also had suspected SVT on admission. Regular LBBB tachycardia, likely either ST or AT/AFL. Now, in sinus rhythm. -Cardiomyopathy, CHF. Tolerating low-dose Coreg so far. Bp still borderline low, has poor po intake. Will add ACEI when improves. [place] resolved. -Cont ASA, atorvastatin -Continue p.o. amiodarone. If no recurrence of tachycardia, we may not need this long-term -Holding Lasix. Was getting dry. Likely will need some later, if po intake improves. has severe cardiomyopathy, moderate to severe MR, severe pulmonary hypertension. -Elevated troponins, LBBB, CMP. Trend was suggestive of demand ischemia so far. I would defer invasive evaluation at this time due to her comorbidities. 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 Current Visit: Yes (2) Acute respiratory failure Status: Resolved Current Visit: Yes Qualifiers: Respiratory failure complication: hypoxia and hypercapnia Qualified Code(s) : J96.01 - Acute respiratory failure with hypoxia; J96.02 - Acute respiratory failure with hypercapnia (3) CAP (community acquired pneumonia) Problem details: Antibiotic course already completed Status: Acute Current Visit: Yes (4) LBBB (left bundle branch block) Status: Chronic Current Visit: Yes Cardiology - PN: Subj Interval history: She is resting comfortably. Answering to questions appropriately, with single words. Exam (Progress Note) - Constitutional Vitals: Period Temp Pulse Resp BP Sys/Cruz Pulse Ox Last 24 Hr 97.6 F-98.6 F 55-68 13-27 91-112/40-54 94-100 General appearance: no acute distress, under weight - Head Head exam: Present: normal inspection, normocephalic - Eye Eye exam: Absent: conjunctival injection, scleral icterus Pupils: Absent: dilated - ENT ENT exam: Present: normal external ear exam - Neck Neck exam: Present: normal inspection - Respiratory Respiratory exam: Present: clear to auscultation bilaterally. Absent: accessory muscle use - Cardiovascular Cardiovascular exam: Present: regular rate and rhythm, systolic murmur. Absent : JVD - GI/Abdominal GI/Abdominal exam: Present: normal bowel sounds - Extremities Exam Extremities exam: Present: normal inspection, normal capillary refill. Absent: edema - Neurological Exam Neurological exam: Present: alert - Psychiatric Psychiatric exam: Present: flat affect - Skin Skin exam: Present: normal color, warm. Absent: cyanosis Result/EKG - Labs CBC & BMP: 08/16/16 04:00 08/16/16 04:34 Lab Results: I have reviewed the past 24 hour labs Labs: Laboratory Results - last 24 hr 08/15/16 08/15/16 08/16/16 11:50 18:11 04:00 WBC 7.7 RBC 3.35 L Hgb 9.7 L Hct 29.3 L MCV 87.5 MCH 29 MCHC 33.1 RDW 13.3 Plt Count 236 MPV 11.4 Neut % (Auto) 91.1 H Lymph % (Auto) 5.1 L [place] % (Auto) 3.3 Eos % (Auto) 0.0 Baso % (Auto) 0.0 Neut # (Auto) 7.0 Lymph # (Auto) 0.4 L [place] # (Auto) 0.3 Eos # (Auto) 0.0 Baso # (Auto) 0.0 Total Counted 100 Immature Gran % 0.5 Nucleated RBC % 0.0 Immature Gran # 0.04 Segmented Neutrophils 86 H Band Neutrophils 2 Lymphocytes 10 L Monocytes 2 Nucleated RBCs # 0.00 Platelet Estimate Normal Pappenheimer Bodies Flag Signaler Sodium Potassium Chloride Carbon Dioxide Anion Gap BUN Creatinine GFR Calculation BUN/Creatinine Ratio Glucose POC Glucose 215 H 295 H Calculated Osmolality Calcium Magnesium 08/16/16 04:34 WBC RBC Hgb Hct MCV MCH MCHC RDW Plt Count MPV Neut % (Auto) Lymph % (Auto) [place] % (Auto) Eos % (Auto) Baso % (Auto) Neut # (Auto) Lymph # (Auto) [place] # (Auto) Eos # (Auto) Baso # (Auto) Total Counted Immature Gran % Nucleated RBC % Immature Gran # Segmented Neutrophils Band Neutrophils Lymphocytes Monocytes Nucleated RBCs # Platelet Estimate Pappenheimer Bodies Sodium 141 Potassium 4.1 Chloride 99 Carbon Dioxide 36 H Anion Gap 10.1 BUN 62 H D Creatinine 0.90 GFR Calculation 57 BUN/Creatinine Ratio 68.00 H Glucose 128 H POC Glucose Calculated Osmolality 300.3 Calcium 9.0 Magnesium 3.2 H - EKG EKG results: interpreted by me
[2016-08-16] MEDS: DESITIN 4OZ/NYSTATIN 15 GRAM MIXTURE PASTE TOP SCH ×2 (12:21→21:53)
--- NOTE | 2016-08-16 13:16 | Hospitalist Progress Note ---
Assessment and Plan - Time spent with patient Time spent with patient: Greater than 30 minutes (1) Acute non-ST elevation myocardial infarction (NSTEMI) Status: Acute Assessment and plan: Stable. Continue current treatment plan. Cards f/u. Current Visit: Yes (2) Acute respiratory failure Problem details: Patient completed therapeutic bronchoscopy 08/13/2016. She was extubated 08/14/2016. She passed a bedside swallow eval and should begin full liquid diet today. Patient had hypercapnic and hypoxemic acute on chronic respiratory failure. Status: Acute Assessment and plan: Continue current resp care regimen. Current Visit: Yes (3) Community acquired pneumonia Status: Acute Assessment and plan: Finished antibioitics course Current Visit: Yes (4) Dilated cardiomyopathy Problem details: 08/07/2016 echocardiogram: LVEF 20% with severe global hypokinesis and grade 2/4 diastolic dysfunction; pulmonary artery pressure 70- 75 mmHg Status: Acute Assessment and plan: Cards f/u. Current Visit: Yes (5) Ischemic cardiomyopathy Status: Acute Assessment and plan: Cards f/u. Current Visit: Yes (6) Mitral regurgitation Status: Acute Assessment and plan: Cards f/u. Current Visit: Yes (7) LBBB (left bundle branch block) Status: Chronic Current Visit: Yes (8) Supraventricular tachycardia Problem details: Now controlled Status: Acute Assessment and plan: Cards f/u. Current Visit: Yes (9) Pulmonary hypertension Problem details: Moderate to severe; pulmonary artery pressure reported 70-75 mmHg on 08/07/2016 echocardiogram Status: Acute Current Visit: Yes (10) Dementia Problem details: Specific cognitive defects not documented. For the first time patient is able to communicate verbally today. Status: Chronic Current Visit : Yes (11) Dyslipidemia Problem details: Receiving and tolerating Lipitor 20 mg p.o. every evening therapy. 08/06/2016 fasting lipid panel: Total cholesterol 151, LDL 96, HDL 43, triglycerides 64 Status: Acute Current Visit: Yes Hospitalist: Subjective Interval history: No overnight acute event. More alert today, Poor oral intake. No fever, chest pain or diarrhea. Exam - Constitutional Vitals: Period Temp Pulse Resp BP Sys/Cruz Pulse Ox Last 24 Hr 97.6 F-98.6 F 55-68 13-20 91-112/40-60 94-100 Exam: GENERAL: Lying in bed supine, Awake and alert. Pale. HEENT: Pupils equally round and reactive to light, conjunctivae clear. Oropharynx pink, with moist mucous membranes. Normal lips, teeth and gums. NECK: Supple without mass. HEART: RRR, no gallops CHEST: Normal shape, fair air movement, no retractions. CV: RRR, no murmurs, 2+ peripheral pulses LUNGS: B/L CTA ABDOMEN: Soft, nontender, and no hepatosplenomegaly. SKIN: No rash or edema. Pale. LYMPH: No anterior or posterior cervical, or supraclavicular lymphadenopathy. NEURO: Can move hands and feet. Results - Labs CBC & BMP: 08/16/16 04:00 08/16/16 04:34
[2016-08-16] MEDS: ATORVASTATIN 20 MG TABLET PO SCH (21:54)
[2016-08-17 05:13] LABS: Eosinophils # 0.2 10*3/uL (0.0-0.87); Eosinophils % 2.7 % (0.00-10.9); Hemoglobin 10.8 GM/DL (12.0-16.0); Immature Granulocytes % 0.6 %; Immature Granulocytes Absolute 0.04 #; Lymphocytes # 2.2 10*3/uL (1.4-4.0); Lymphocytes % 31.1 % (21.3-54.2); Mean Corpuscular HGB Conc 32.7 GM/DL (32-36); Mean Corpuscular Hemoglobin 29 PG (27-34); Mean Corpuscular Volume 88.2 FL (87-102); Monocytes # 0.6 10*3/uL (0.11-0.8); Monocytes % 8.4 % (1.7-12.7); Neutrophils % 57.2 % (38.7-73.9); Platelet Count 265 T/CUMM (130-400); Red Blood Count 3.74 MC/CUMM (3.8-5.5); Red Cell Distribution Width 13.6 % (9.3-17.3); White Blood Count 6.9 T/CUMM (4-12)
[2016-08-17 05:43] LABS: Calcium 8.6 MG/DL (8.5-10.1); Magnesium 2.9 MG/DL (1.8-2.4); Osmolality,Calculated 293.1 MOS/KG (273-304); Potassium 4.2 MMOL/L (3.5-5.1)
[2016-08-17 05:48] LABS: Phosphorous 2.9 MG/DL (2.5-4.9); Prealbumin 25.1 MG/DL (20-40)
[2016-08-17] MEDS: DESITIN 4OZ/NYSTATIN 15 GRAM MIXTURE PASTE TOP SCH ×2 (08:35→22:14)
[2016-08-17] MEDS: ASPIRIN 325 MG TABLET PO SCH (09:05)
[2016-08-17] MEDS: AMIODARONE 200 MG TABLET PO SCH (09:06)
[2016-08-17] MEDS: ENOXAPARIN 40 MG/0.4 ML SYRINGE SUBCUT SCH (09:06)
[2016-08-17] MEDS: CARVEDILOL 3.125 MG TABLET PO SCH ×2 (09:06→22:14)
[2016-08-17] MEDS: PANTOPRAZOLE 40 MG VIAL IV SCH (09:07)
[2016-08-17] MEDS: MULTIVITAMIN LIQUID (CENTRUM) 60 ML BOTTLE PO SCH (09:21)
--- NOTE | 2016-08-17 09:51 | Hospitalist Progress Note ---
Assessment and Plan (1) Acute non-ST elevation myocardial infarction (NSTEMI) Status: Acute Assessment and plan: Stable; will continue current plan of care per cardiology direction. Current Visit: Yes (2) Acute respiratory failure Problem details: Patient completed therapeutic bronchoscopy 08/13/2016. She was extubated 08/14/2016. She passed a bedside swallow eval and should begin full liquid diet today. Patient had hypercapnic and hypoxemic acute on chronic respiratory failure. Status: Acute Current Visit: Yes (3) CAP (community acquired pneumonia) Problem details: Antibiotic course already completed Status: Acute Assessment and plan: Antibiotic course is complete. WBCs are noted at 6.9 today. No active signs of infection noted. Current Visit: Yes (4) Community acquired pneumonia Status: Acute Current Visit: Yes (5) Dilated cardiomyopathy Problem details: 08/07/2016 echocardiogram: LVEF 20% with severe global hypokinesis and grade 2/4 diastolic dysfunction; pulmonary artery pressure 70- 75 mmHg Status: Acute Assessment and plan: EF noted at 20% with severe global hypokinesis and grade 2/4 diastolic dysfunction, pulmonary artery pressure 70-75. Continue management per cardiology recommendation. Current Visit: Yes Hospitalist: Subjective Interval history: Patient seen and examined; no significant overnight events. Full liquid diet initiated on yesterday. Patient is tolerating well. Exam - Constitutional Vitals: Period Temp Pulse Resp BP Sys/Cruz Pulse Ox Last 24 Hr 97.0 F-98.5 F 53-64 12-20 86-100/49-60 93-98 General appearance: normal weight, no acute distress - Head Head exam: Present: normal inspection, normocephalic, atraumatic - Eye Eye exam: Present: EOMI, conjunctival injection Pupils: Present: TACHO, normal accommodation - ENT ENT exam: Present: normal exam, normal external ear exam, normal oropharynx - Neck Neck exam: Present: normal inspection. Absent: lymphadenopathy, meningismus, thyromegaly - Respiratory Respiratory exam: Present: clear to auscultation bilaterally. Absent: rales, rhonchi, stridor, wheezes - Cardiovascular Cardiovascular exam: Present: regular rate and rhythm. Absent: carotid bruit, diastolic murmur, gallop, JVD, rubs, systolic murmur - GI/Abdominal GI/Abdominal exam: Present: normal bowel sounds, soft. Absent: mass, tenderness - Extremities Exam Extremities exam: Present: normal inspection, normal capillary refill. Absent: edema - Back Exam Back exam: Present: normal inspection - Neurological Exam Neurological exam: Present: alert, altered (Oriented to person only; unable to recite place, time, situation.), other (Intermittent confusion noted; patient is only oriented to self unable to recite place, time, or situation.) - Psychiatric Psychiatric exam: Present: normal affect, normal mood - Skin Skin exam: Present: normal color, warm, dry Results - Labs CBC & BMP: 08/17/16 04:55 08/17/16 04:55 Lab Results: I have reviewed the past 24 hour labs Specialty Discharge - Follow Up or Referrals
--- NOTE | 2016-08-17 12:40 | Pulmonology Progress Note ---
Pulmonary - PN: Subj Interval history: Patient is an 89-year-old black lady that came in with acute respiratory failure. She was felt to have acute pulmonary edema and has a cardiomyopathy. She may have had a small HI. She was ventilated for several days and extubated last week. She has really done fairly well off the ventilator. She is on telemetry now and is alert. She is eating some breakfast. Her daughter takes care of her. She says she has been breathing comfortably for the most part. She is not coughing too badly. The patient will respond and talk a little bit. Overall she seems to be fairly stable Exam (Progress Note) - Constitutional Vitals: Period Temp Pulse Resp BP Sys/Cruz Pulse Ox Last 24 Hr 97.0 F-98.5 F 53-64 12-20 86-100/41-55 92-98 Exam: General appearance: no acute distress (Patient is talking some and eating breakfast. She is comfortable on low-flow oxygen.) - Head Head exam: Present: normal inspection, normocephalic - Eye Eye exam: Present: EOMI. Absent: scleral icterus Pupils: Present: TACHO - ENT ENT exam: Present: Unremarkable - Neck Neck exam: Absent: lymphadenopathy - Respiratory Respiratory exam: Present: Lungs have good breath sounds bilaterally she is moving air well without any wheezing. Her lungs still sound reasonably clear. - Cardiovascular Cardiovascular exam: Present: regular rate and rhythm. Her heart rate is under good control. Absent: gallop, systolic murmur - GI/Abdominal GI/Abdominal exam: Present: normal bowel sounds, soft. Absent: organomegaly, tenderness - Extremities Exam Extremities exam: Present: other (Her extremities are rather thin.). Absent: calf tenderness, edema - Neurological Exam Neurological exam: Present: She is trying to talk a little bed and is alert. She is still extremely weak. - Psychiatric Psychiatric exam: Absent: anxious - Skin Skin exam: Present: warm, dry Results - Labs CBC & BMP: 08/17/16 04:55 08/17/16 04:55 Assessment and Plan (1) Pulmonary edema Status: Acute Assessment and plan: The patient came in with pulmonary edema and has improved. Her x-ray is better and her oxygenation is stable. Her CHF looks much better now. She is doing well off the ventilator and her breathing is stable. Current Visit: Yes Qualifiers: Chronicity: acute Qualified Code(s): J81.0 - Acute pulmonary edema (2) Acute respiratory failure Status: Resolved Assessment and plan: The patient had respiratory failure and was ventilated for several days. She is doing much better now and is comfortable off the ventilator. Current Visit: Yes Qualifiers: Respiratory failure complication: hypoxia and hypercapnia Qualified Code(s) : J96.01 - Acute respiratory failure with hypoxia; J96.02 - Acute respiratory failure with hypercapnia (3) Hyperglycemia Status: Acute Assessment and plan: Her glucose is 95 this morning Current Visit: Yes Specialty Discharge - Follow Up or Referrals
--- NOTE | 2016-08-17 15:28 | Cardiology Progress Note ---
<Shahnaz Slater - Last Filed: 08/17/16 15:23> Assessment and Plan (1) CHF exacerbation Status: Acute Assessment and plan: See plan of care listed below Current Visit: Yes (2) Cardiomyopathy Status: Acute Assessment and plan: See plan of care listed below Current Visit: Yes Qualifiers: Cardiomyopathy type: unspecified Qualified Code(s): I42.9 - Cardiomyopathy , unspecified (3) Elevated troponin level Problem details: Sustained low level elevation not consistent with acute coronary syndrome. Status: Acute Assessment and plan: See plan of care listed below Current Visit: Yes (4) Mitral regurgitation Status: Chronic Assessment and plan: See plan of care listed below Current Visit: Yes (5) Pulmonary hypertension Problem details: Moderate to severe; pulmonary artery pressure reported 70-75 mmHg on 08/07/2016 echocardiogram Status: Chronic Assessment and plan: See plan of care listed below Current Visit: Yes (6) Advanced age Status: Chronic Assessment and plan: See plan of care listed below Current Visit: Yes (7) LBBB (left bundle branch block) Status: Chronic Assessment and plan: See plan of care listed below Current Visit: Yes (8) Acute respiratory failure Status: Resolved Assessment and plan: See plan of care listed below Current Visit: Yes Qualifiers: Respiratory failure complication: hypoxia and hypercapnia Qualified Code(s) : J96.01 - Acute respiratory failure with hypoxia; J96.02 - Acute respiratory failure with hypercapnia (9) Tachyarrhythmia Status: Resolved Assessment and plan: See plan of care listed below Current Visit: Yes Cardiology - PN: Subj Interval history: PANAMA HAT SMEARER: (NEW) DR. FELTON SUMMARY: Ms. Daugherty, 89BF, without a prior history of cardiac disease. According to family, she lived independently taking care of her ADLs without difficulty. Patient was admitted August 07, 2016 with acute shortness of breath requiring intubation in the emergency department. She was found to be hypotensive and in in SVT. She was treated with IV Amiodarone. She has been diagnosed with newly discovered cardiomyopathy, EF 20%, moderate to severe MR, severe TR, PAP 70-75 mmHg. Troponins have remained slightly elevated but flat ( 0.211-0.360). 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 AUGUST 10, 2016: Overnight, pressors have been weaned off and blood pressure stable. Remains on the ventilator but is doing prolonged CPAP trials. She has been off Diprovan for 48 hours with little response. She does have a history of dementia but, as I understand, she was living independently taking care of her ADLs prior to this event. Over the weekend she has diuresed relatively well. There is a question as to whether she had pneumonia however, it is believed that this is a chronic interstitial scarring and not an active pneumonia on admission. IV Amiodarone was changed to oral amiodarone over the weekend. Chronic left bundle branch block. No arrhythmia over the weekend. Diamox added for metabolic alkalosis. At some point, patient may benefit from heart catheterization once her comorbidities stabilize. I will further discuss with Dr. Hernadez and await additional recommendations. AUGUST 12, 2016: Overnight, no significant change in Ms. Daugherty' condition. She is off pressors but blood pressure will not allow for introduction of an STANLEY inhibitor or beta-faustino at this point. Continues to take aspirin, lipid- lowering agent. No arrhythmia overnight. Continue p.o. Amiodarone. If no recurrence of tachycardia, may not lead long-term. It appears that she has diuresed a total of 4 1/2 - [address] of head this morning revealed no acute abnormality. Lasix was decreased to 40 mg IV daily. Should patient's comorbidities improve, and family wishes to pursue, cardiac workup will need to include right/left heart catheterization. For now, continue supportive medical management. Will further discuss with Dr. Hernadez and await additional recommendations. AUGUST 13, 2016: No significant change overnight. She remains off pressors. Lasix has been decreased to once daily. No arrhythmia noted overnight. She remains on Amiodarone 200 mg orally twice daily. Blood pressure and allow for introduction of an STANLEY inhibitor or beta-faustino. Labs are stable this morning. She continues with respiratory trials. I will further discuss with Dr. Hernadez and await additional recommendations. AUGUST 14, 2016: Yesterday, patient underwent therapeutic bronchoscopy. Early this morning, patient was extubated. She appears to be very comfortable, no tachypnea. Opens Her eyes to command and return to sleep quickly. Patient's weight is down a total of 6-1/2 kg since admission. Labs are stable as are vital signs. No arrhythmia noted. Will further discuss with Dr. Hernadez and await additional recommendations. Will transition IV Lasix to oral Lasix. AUGUST 17, 2016: Patient was seen and examined on the telemetry unit. No family at bedside upon rounds. Patient wakes up to name being called. However, she will not answer questions when asked. This is thought to be secondary to her dementia. Labs been reviewed. Vital signs are stable. Borderline hypotension noted after initiation of low-dose beta-faustino. This will be continued for now. We will attempt to add STANLEY inhibitor when her blood pressure will allow. Labs have been reviewed. Creatinine is improving. Will discuss with Dr. Stevens and await his additional recommendations. ASSESSMENT/PLAN: 1. ACUTE RESPIRATORY FAILURE - Resolved. Extubated . 2. ACUTE CHF - Secondary to systolic dysfunction (EF 20%) and diastolic dysfunction, NYHA Class III-IV. Patient has diuresed well and this has been well- compensated. Holding Lasix as he appeared to be getting dry. Likely will need some later, if po intake improves. 4. MITRAL REGURGITATION, MODERATE TO SEVERE - Continue afterload reduction when able. 5. ELEVATED TROPONIN - flat throughout hospitalization. Suspicious for demand ischemia. Continue beta-faustino. Unable to tolerate STANLEY or nitrates. Continue ASA, lipid lowering agent. Would defer invasive evaluation at this time due to her comorbidities. 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 6. PULMONARY HYPERTENSION, SEVERE - Continue current plan of care 7. LBBB, CHRONIC - Continue current plan of care. 8. TACHYARRYTHMIA - No arrhythmia overnight. Amiodarone 200 mg twice daily. May decrease to once daily soon if no arrhythmia occurs. 9. METABOLIC ALKALOSIS - Resolved. 10. CARDIOMYOPATHY - Suspected to be ischemic. Tolerating low-dose Coreg so far. Blood pressure remains borderline low. Will add STANLEY inhibitor when blood pressure improves. 11. DEMENTIA - Continue current plan of care. Exam (Progress Note) - Constitutional Vitals: Period Temp Pulse Resp BP Sys/Cruz Pulse Ox Last 24 Hr 97.0 F-98.5 F 53-64 12-20 86-100/41-55 92-98 Exam: General: [Thin female. Appears comfortable. HEENT: [Normocephalic, atraumatic. Bilateral arcus noted. Mucous membranes moist. No jaundice noted. Conjunctiva moist and clear, sclerae anicteric] Neck: No JVD/HJR, no thyromegaly or lymphadenopathy noted. No carotid bruit appreciated Cardiac: [Regular rate and rhythm.] [III/ HSM heard best at 5 ICS left. Lungs: [Relatively clear. No wheezing. Symmetrical chest wall movements noted. Abdomen: Soft, bowel sounds normoactive, flat. Nontender and nondistended. No abdominal bruit or thrill noted. No masses noted. Musculoskeletal: No fluid collection. Decreased range of motion is noted. Extremities: No clubbing, cyanosis noted. [ No edema noted.] Upper extremity pulses 2+. Lower extremity pulses 1+. Capillary refill less than 3 seconds. Skin: No unusual lesions or rashes. No skin breakdown appreciated. Neuro: Does not follow commands. No essential tremor is appreciated. Result/EKG - Labs CBC & BMP: 08/17/16 04:55 08/17/16 04:55 Lab Results: I have reviewed the past 24 hour labs Labs: Laboratory Results - last 24 hr 08/17/16 08/17/16 08/17/16 04:55 04:55 04:55 WBC 6.9 RBC 3.74 L Hgb 10.8 L Hct 33.0 L MCV 88.2 MCH 29 MCHC 32.7 RDW 13.6 Plt Count 265 MPV 11.0 Neut % (Auto) 57.2 Lymph % (Auto) 31.1 [place] % (Auto) 8.4 Eos % (Auto) 2.7 Baso % (Auto) 0.0 Neut # (Auto) 4.0 Lymph # (Auto) 2.2 [place] # (Auto) 0.6 Eos # (Auto) 0.2 Baso # (Auto) 0.0 Immature Gran % 0.6 Nucleated RBC % 0.0 Immature Gran # 0.04 Nucleated RBCs # 0.00 Sodium 142 Potassium 4.2 Chloride 104 Carbon Dioxide 33 H Anion Gap 9.2 BUN 44 H Creatinine 0.90 GFR Calculation 58 BUN/Creatinine Ratio 48.00 H Glucose 95 Calculated Osmolality 293.1 Calcium 8.6 Phosphorus 2.9 Magnesium 3.0 H 2.9 H Prealbumin 25.1 Specialty Discharge - Follow Up or Referrals <Jossue Stevens - Last Filed: 08/17/16 15:58> Cardiology - PN: Subj Interval history: Patient's counts are improved. She is I think stable from a cardiac standpoint likely can be discharged to a swing bed or to some detention facility. I think overall things are slowly improving. Her vital signs are stable. Exam (Progress Note) - Constitutional Vitals: Period Temp Pulse Resp BP Sys/Cruz Pulse Ox Last 24 Hr 97.0 F-98.5 F 56-64 12-20 86-100/41-49 92-98 Result/EKG - Labs CBC & BMP: 08/17/16 04:55 08/17/16 04:55 Labs: Laboratory Results - last 24 hr 08/17/16 08/17/16 08/17/16 04:55 04:55 04:55 WBC 6.9 RBC 3.74 L Hgb 10.8 L Hct 33.0 L MCV 88.2 MCH 29 MCHC 32.7 RDW 13.6 Plt Count 265 MPV 11.0 Neut % (Auto) 57.2 Lymph % (Auto) 31.1 [place] % (Auto) 8.4 Eos % (Auto) 2.7 Baso % (Auto) 0.0 Neut # (Auto) 4.0 Lymph # (Auto) 2.2 [place] # (Auto) 0.6 Eos # (Auto) 0.2 Baso # (Auto) 0.0 Immature Gran % 0.6 Nucleated RBC % 0.0 Immature Gran # 0.04 Nucleated RBCs # 0.00 Sodium 142 Potassium 4.2 Chloride 104 Carbon Dioxide 33 H Anion Gap 9.2 BUN 44 H Creatinine 0.90 GFR Calculation 58 BUN/Creatinine Ratio 48.00 H Glucose 95 Calculated Osmolality 293.1 Calcium 8.6 Phosphorus 2.9 Magnesium 3.0 H 2.9 H Prealbumin 25.1
[2016-08-17] MEDS: ATORVASTATIN 20 MG TABLET PO SCH (22:13)
[2016-08-18 05:56] LABS: Eosinophils # 0.3 10*3/uL (0.0-0.87); Eosinophils % 3.7 % (0.00-10.9); Immature Granulocytes % 0.5 %; Immature Granulocytes Absolute 0.04 #; Lymphocytes # 2.1 10*3/uL (1.4-4.0); Lymphocytes % 25.4 % (21.3-54.2); Mean Corpuscular HGB Conc 33.3 GM/DL (32-36); Mean Corpuscular Hemoglobin 29 PG (27-34); Mean Corpuscular Volume 87.3 FL (87-102); Mean Platelet Volume 11.3 FL (9.6-12.0); Monocytes # 0.7 10*3/uL (0.11-0.8); Monocytes % 8.2 % (1.7-12.7); Neutrophils # 5.2 10*3/uL (1.4-7.4); Neutrophils % 62.2 % (38.7-73.9); Platelet Count 273 T/CUMM (130-400); Red Blood Count 3.78 MC/CUMM (3.8-5.5); Red Cell Distribution Width 13.6 % (9.3-17.3); White Blood Count 8.4 T/CUMM (4-12)
[2016-08-18 06:21] LABS: Calcium 8.2 MG/DL (8.5-10.1); Magnesium 2.4 MG/DL (1.8-2.4); Osmolality,Calculated 284.3 MOS/KG (273-304); Potassium 4.3 MMOL/L (3.5-5.1)
[2016-08-18] MEDS: DESITIN 4OZ/NYSTATIN 15 GRAM MIXTURE PASTE TOP SCH (08:57)
--- NOTE | 2016-08-18 09:02 | Pulmonology Progress Note ---
Pulmonary - PN: Subj Interval history: Patient is an 89-year-old black lady that came in with acute respiratory failure. She was felt to have acute pulmonary edema and has a cardiomyopathy. She may have had a small NC. She was ventilated for several days and extubated last week. She has really done fairly well off the ventilator. She is on telemetry now and is alert. She is eating some breakfast. Her daughter takes care of her. She had a fairly good night and is comfortable off of oxygen. She gets a little bit short of breath at times. Overall she is reasonably stable. She is going to a swing bed before going home with her daughter. Exam (Progress Note) - Constitutional Vitals: Period Temp Pulse Resp BP Sys/Cruz Pulse Ox Last 24 Hr 97 F-98.3 F 62-68 18-20 87-109/41-58 92-99 Exam: General appearance: no acute distress (Patient is talking some and eating breakfast. She is comfortable on low-flow oxygen.) - Head Head exam: Present: normal inspection, normocephalic - Eye Eye exam: Present: EOMI. Absent: scleral icterus Pupils: Present: TACHO - ENT ENT exam: Present: Unremarkable - Neck Neck exam: Absent: lymphadenopathy - Respiratory Respiratory exam: Present: Lungs have good breath sounds bilaterally she is moving air well without any wheezing. Her lungs still sound reasonably clear. I do not hear any definite rales. - Cardiovascular Cardiovascular exam: Present: regular rate and rhythm. Her heart rate is under good control. Absent: gallop, systolic murmur - GI/Abdominal GI/Abdominal exam: Present: normal bowel sounds, soft. Absent: organomegaly, tenderness - Extremities Exam Extremities exam: Present: other (Her extremities are rather thin.). Absent: calf tenderness, edema - Neurological Exam Neurological exam: Present: She is trying to talk a little bed and is alert. She is still extremely weak. - Psychiatric Psychiatric exam: Absent: anxious - Skin Skin exam: Present: warm, dry Results - Labs CBC & BMP: 08/18/16 05:02 08/18/16 05:02 Assessment and Plan (1) Pulmonary edema Status: Resolved Assessment and plan: The patient came in with pulmonary edema and has improved. Her x-ray is better and her oxygenation is stable. Her CHF looks much better now. She looks like she is reasonably stable and can go to a swing bed. Current Visit: Yes Qualifiers: Chronicity: acute Qualified Code(s): J81.0 - Acute pulmonary edema (2) Acute respiratory failure Status: Resolved Assessment and plan: The patient had respiratory failure and was ventilated for several days. She is doing much better now and is comfortable off the ventilator. She is doing well and can go to a swing bed. Current Visit: Yes Qualifiers: Respiratory failure complication: hypoxia and hypercapnia Qualified Code(s) : J96.01 - Acute respiratory failure with hypoxia; J96.02 - Acute respiratory failure with hypercapnia (3) Hyperglycemia Status: Acute Assessment and plan: Her glucose is 82 this morning Current Visit: Yes Specialty Discharge - Follow Up or Referrals
[2016-08-18] MEDS: ASPIRIN 325 MG TABLET PO SCH (10:07)
[2016-08-18] MEDS: AMIODARONE 200 MG TABLET PO SCH (10:07)
[2016-08-18] MEDS: CARVEDILOL 3.125 MG TABLET PO SCH (10:07)
[2016-08-18] MEDS: MULTIVITAMIN LIQUID (CENTRUM) 60 ML BOTTLE PO SCH (10:08)
[2016-08-18] MEDS: ENOXAPARIN 40 MG/0.4 ML SYRINGE SUBCUT SCH (10:13)
[2016-08-18] MEDS: PANTOPRAZOLE 40 MG VIAL IV SCH (10:15)
--- NOTE | 2016-08-18 10:25 | Discharge Summary ---
<Lee Teague - Last Filed: 08/18/16 10:07> Hospital Course - Hospital Course Hospital Course: This is a very pleasant 89-year-old female that presented to the ED at [facility] on August 07, 2016 for the evaluation of shortness of breath as a transfer from [facility] in [place], [place]. At the time of ED presentation, the patient presented only a medical history significant for dementia of which she had not been previously treated for. The family reported that the patient was diagnosed 2 years prior to presentation however has not adhered to any medication regimen. The family reported a remote history of chronic obstructive pulmonary disease; however there is no definite confirmation of this actual condition. Apparently the patient had developed an acute onset of shortness of breath 20 minutes prior to arriving at the ED at [facility]. Her daughter reported that she was short of breath became diaphoretic and vomited multiple times. The patient was immediately assessed at the ED at [facility] and was determined to be in supraventricular tachycardia with a heart rate noted at 170. The patient was started on IV amiodarone which improved her heart rate however failed to improve her shortness of breath. The patient was electively intubated for airway protection due to the severity of her shortness of breath. The patient was transferred to [facility] for continuation of care. Upon transfer to [facility], the patient remained intubated and continued to require mechanical ventilation. The patient was placed in the critical care setting. In addition, the patient was noted to be hypotensive in which she received multiple fluid boluses with minimal response. Invasive lines were placed in the critical care unit. Chest radiograph was ordered to confirm placement. Upon review of the chest x-ray the patient was noted to have bilateral pulmonary edema. A cardiology and pulmonology consultation was requested to assist in the management of the patient during the clinical encounter. Ventilator support, diuresis, empiric intravenous antibiotic coverage, and pulmonary toileting were initiated. Echocardiogram was ordered which reported ejection fraction of 20% with severe global hypokinesis with moderate to severe mitral valve and tricuspid valve regurgitation. Pulmonary artery pressure was elevated consistent with the diagnosis of diastolic dysfunction. In addition, the patient was noted to have a chronic left bundle branch block. On August 14, 2016 the patient underwent diagnostic and therapeutic bronchoscopy during which the patient was noted to have bronchitis with mild mucosal plugging. The patient remained intubated requiring mechanical ventilation and was subsequently extubated on August 14, 2016. The patient's condition improved and the patient was subsequently transferred to the telemetry unit on August 15, 2016 for continuation of care. The patient condition has continued to improve. The patient's p.o. intake has increased. Physical therapy and Occupational Therapy consultations were requested. The patient was evaluated and treatment regimen was initiated. The patient has not experienced any significant overnight events. Her vital signs are stable. Today, we feel that she is indeed appropriate for discharge to swing bed at [facility] [place] [facility] in [place], [place] for continuation of care. Diagnosis - Discharge Diagnosis (1) Acute non-ST elevation myocardial infarction (NSTEMI) Status: Acute (2) Acute respiratory failure Status: Acute (3) CAP (community acquired pneumonia) Status: Acute (4) Community acquired pneumonia Status: Acute (5) Dilated cardiomyopathy Status: Acute Specialty Discharge - Follow Up or Referrals Discharge Plan - Discharge Data Disposition: Swing Bed, [facility], [facility] - Discharge Medications New Amiodarone Tab [Cordarone Tab] 200 mg PO DAILY tablet Aspirin Tab 325 mg PO DAILY tablet Atorvastatin [Lipitor] 20 mg PO BEDTIME tablet Multivitamin Liquid (Centrum) [Centrum Liquid] 15 ml PO DAILY bottle Carvedilol [Coreg] 3.125 mg PO BID tablet Discontinued Aspirin [Ecotrin] 81 mg PO DAILY - Follow Up or Referral - Forms/Instructions Instructions: Myocardial Infarction (GEN), Hypertrophic Cardiomyopathy (GEN), Heart Healthy Diet (GEN), Coronary Artery Disease in Women (GEN) Exam - Constitutional Vitals: Period Temp Pulse Resp BP Sys/Cruz Pulse Ox Last 24 Hr 97 F-98.3 F 62-68 18-20 87-109/41-58 92-99 Discharge Results Procedures and tests throughout hospitalization: Pending Orders 08/19/16 04:00 BMP w/ Mg [Basic Metabolic Panel w/Mg] IN AM CBC [Comp Blood Count Auto Diff] IN AM 08/20/16 04:00 BMP w/ Mg [Basic Metabolic Panel w/Mg] IN AM CBC [Comp Blood Count Auto Diff] IN AM 08/21/16 04:00 BMP w/ Mg [Basic Metabolic Panel w/Mg] IN AM CBC [Comp Blood Count Auto Diff] IN AM Labs on day of discharge: Labs from last 24 hours 08/18/16 08/18/16 05:02 05:02 WBC 8.4 RBC 3.78 L Hgb 11.0 L Hct 33.0 L MCV 87.3 MCH 29 MCHC 33.3 RDW 13.6 Plt Count 273 MPV 11.3 Neut % (Auto) 62.2 Lymph % (Auto) 25.4 Lake % (Auto) 8.2 Eos % (Auto) 3.7 Baso % (Auto) 0.0 Neut # (Auto) 5.2 Lymph # (Auto) 2.1 Lake # (Auto) 0.7 Eos # (Auto) 0.3 Baso # (Auto) 0.0 Immature Gran % 0.5 Nucleated RBC % 0.0 Immature Gran # 0.04 Nucleated RBCs # 0.00 Sodium 141 Potassium 4.3 Chloride 104 Carbon Dioxide 29 Anion Gap 12.3 BUN 27 H Creatinine 0.80 GFR Calculation 68 BUN/Creatinine Ratio 33.00 H Glucose 82 Calculated Osmolality 284.3 Calcium 8.2 L Magnesium 2.4 DS: Provider Date of admission: 08/06/16 23:05 Primary care physician: . No PCP Attending physician on admission: Nidia Collins MD Consults: 08/06/16 23:48 Consult to Physician [CONS] Routine Comment: LBBB, sepsis Consulting Provider: Cardiology - [facility] Consulting Provider Notified: Yes Consult to Specialist Group: Cardiology Person Notified: Helen Roman NP Date Notified: 08/07/16 Time Notified: 07:30 08/07/16 01:02 Consult to Physician [CONS] Routine Comment: respiratory failure Consulting Provider: Gallito Devries Consulting Provider Notified: Yes Consult to Specialist Group: Pulmonology Person Notified: Dr. Gallito Devries Date Notified: 08/07/16 Time Notified: 07:15 08/07/16 07:50 Consult to Dietitian [CONS] Routine Reason for Dietitian: TF-Initiate/Manage 08/09/16 11:19 Consult to Physical Therapy [CONS] Routine Reason for Physical Therapy: Evaluate and Treat 08/14/16 14:37 Consult to Case Mgmt/Social Srvs [CONS] Routine Reason for Case Mgmt/Social Srvs: Swingbed/SNF/Shelter Consult Comment: POSSIBLE S/B, DTR TO DECIDE CLOSER TO D/C 08/17/16 06:38 Consult to Cardiac Rehabilitation [CONS] Routine Reason for Cardiac Rehabilitation: Risk Factor Modification 08/17/16 09:54 Consult to Physical Therapy [CONS] Routine Reason for Physical Therapy: Evaluate and Treat Discharging clinician: Lee Teague CNP <Nidia Collins - Last Filed: 08/18/16 10:48> Hospital Course - Time spent with patient Time with patient DS: Greater than 30 minutes (Total discharge time for this patient, including [id number] time, clinical documentation, medication reconciliation, and discharge planning was 45 minutes.) Diagnosis - Discharge Diagnosis (1) Pulmonary edema Status: Resolved (2) NSTEMI (non-ST elevated myocardial infarction) Status: Deleted (3) Acute respiratory failure Status: Resolved (4) Respiratory acidosis Status: Resolved (5) Hypokalemia Status: Acute (6) SVT (supraventricular tachycardia) Status: Acute (7) Hyperglycemia Status: Acute (8) Elevated lactic acid level Status: Resolved (9) Dementia Status: Chronic (10) Dilated cardiomyopathy Status: Acute (11) Pulmonary hypertension Status: Chronic (12) CHF exacerbation Status: Acute Discharge Plan - Discharge Data Condition at Discharge: Stable Discharge Diet: advance to your usual diet Activity: as per physical therapy Hygiene: no restrictions Weight Bearing at Discharge: full weight bearing Contact your physician if you experience:: fever over 101, Shortness of breath - Forms/Instructions Additional Discharge Instructions: Follow-up with primary care physician after discharge from swing bed. Follow-up with cardiology in 4-6 weeks. DS: Provider Expected date of discharge: 08/18/16
[2016-08-18 12:18] VITALS: BP 110/55
== END 2016-08-18 13:52 | disposition swing bed (61) | DRG 207 ==
LOC: SUATTDRO 23:00 → N.ICU 23:00 → SUATTDRO 23:05 → N.CC 08-12 14:25 → N.TELEN 08-15 20:10
PROVIDERS: ADMIT Family Medicine; ATTEND Family Medicine